=== PATIENT | female | born 1940 | race American Indian/Alaskan Native ===

== ENCOUNTER 2016-07-22 16:51 | Emergency (ER) | payer MEDICARE, MEDICAID ==
[2016-07-22 17:31] VITALS: BP 129/52
--- NOTE | 2016-07-22 17:37 | EDM.PDOC ---
ED HPI GENERAL MEDICAL PROBLEM - General Chief Complaint: Lower Extremity Injury/Pain Stated Complaint: TOE INJURY Time Seen by Provider: 07/22/16 17:30 Source of Information: Reports: Patient History Limitations: Reports: No Limitations - History of Present Illness INITIAL COMMENTS - FREE TEXT/NARRATIVE: 75-year-old female of [place] ancestry presents to the ED for evaluation of painful left toes. Is some suggestion that she dropped an object on her left foot and injured the third fourth and fifth toes on the left side. This occurred on Mother's Day . She was at the poultry dresser today to have her nails trimmed and they cannot touch her left toes do to severe pain. It therefore became concerned whether there might be an occult fracture. By history she has severe peripheral peripheral vascular disease and has had a femoral bypass procedure carried out I believe on both legs about 10 years ago. Onset: Unknown/Unsure (Question is whether she got something in her toes and injured them on Mother's Day July 17.) Duration: Day(s):, Getting Worse Location: Reports: Lower Extremity, Left (Left toes particularly the fifth fourth and third toes on the left foot.) Quality: Reports: Other (Constant aching deep pain.) Severity: Moderate (Offered to severe can't wear a shoe for example.) Improves with: Reports: None Worsens with: Reports: None Context: Denies: Activity, Exercise, Lifting, Sick Contact, Trauma, Other Associated Symptoms: Reports: Malaise, Shortness of Breath (On minimal exertion has known COPD.). 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: Other (see below) Left 3-Middle toe Pain Score (Numeric/FACES): 8 - Related Data Allergies Allergy/AdvReac Type Severity Reaction Status Date / Time No Known Allergies Allergy Verified 07/22/16 17:37 Home Meds: Home Meds Hydrocodone/Acetaminophen [Gwinn 5-325 Tablet] 1 each PO Q6H PRN #24 tablet [Rx] Pentoxifylline [TRENtal] 400 mg PO TIDMEALS #90 tab.er 07/22/16 [Rx] Simvastatin [Zocor] 20 mg PO BEDTIME 07/22/16 [History] Past Medical History Cardiovascular History: Reports: High Cholesterol, Hypertension, PVD (Severe.) Respiratory History: Reports: COPD Musculoskeletal History: Reports: Osteoarthritis, Osteoporosis ( Has never been diagnosed with this disorder.), RA (Question whether she may have rheumatoid arthritis is MCP joints of her hands are notably swollen with ulnar drift of the hand.) - Past Surgical History Cardiovascular Surgical History: Reports: Vascular Surgery (I believe she's had femoral bypass surgery. Bilaterally) Social & Family History - Living Situation & Occupation Living situation: Reports: Single, with Family Occupation: Retired Review of Systems - Review of Systems Review Of Systems: See Below Constitutional: Reports: Weakness Eyes: Reports: No Symptoms Ears: Reports: No Symptoms Nose: Reports: No Symptoms Mouth/Throat: Reports: No Symptoms Respiratory: Reports: Shortness of Breath, Cough (Occasional nonproductive cough ). Denies: Wheezing, Pleuritic Chest Pain (Minimal exertion) Cardiovascular: Denies: Chest Pain, Edema, Irregular Heart Rate GI/Abdominal: Reports: No Symptoms Genitourinary: Reports: Incontinence (Occasional urge incontinence. Urinary frequency.) Musculoskeletal: Reports: Neck Pain, Back Pain, Joint Pain, Joint Swelling ( Hands and feet.) Skin: Reports: No Symptoms Neurological: Reports: No Symptoms Psychiatric: Reports: No Symptoms Trauma Exam - Physical Exam Exam: See Below Exam Limited By: No Limitations General Appearance: Reports: Alert, WD/WN, No Apparent Distress (Very stoic lady who doesn't offer much in the way of history.) Head: Reports: Atraumatic, Normocephalic Eyes: Bilateral Eye: Normal Inspection Throat/Mouth: Reports: Other (Is mildly dry.) Neck: Reports: Non-Tender, Normal Alignment, Normal Inspection, Limited Range of Motion, Paraspinous Muscle Tender (Bilaterally). Denies: Full Range of Motion, Muscle Spasm Respiratory Exam: Reports: Respiratory Distress, Decreased Breath Sounds (Mild tachypnea at rest. Decreased air entry to the lower 40% of lung farrell bilaterally. Occasional expiratory wheeze.) Cardiovascular: Reports: Regular Rate, Rhythm, No Edema, No Gallop, No Murmur, No Rub. Denies: Normal Peripheral Pulses GI/Abdominal: Reports: Normal Bowel Sounds, Soft, Non-Tender, No Organomegaly Extremities: Other (On examination the left foot there is a 3 mm superficial abrasion over the middle phalanx of the third toe. Is no active infection in this area and it appears that has been injured recently as the skin is peeled to the side of the wound. Of note both lower extremities are extremely cool to touch without any pulses palpable below the femorals. Femoral bruits are present bilaterally. She has severe peripheral vascular disease and I think her current problem is rest pain due to poor circulation. Even just touching the toes cause her to have pain and discomfort. They do not appear to be fracture or malalignment.) Skin: Reports: Normal Color, Other (Lower extremity skin is extremely cool to touch) - Alex Coma Score Best Eye Response (Mascot): (4) Open Spontaneously Best Verbal Response (Alex): (5) Oriented Best Motor Response (Mascot): (6) Obeys Commands Mascot Total: 15 Course - Vital Signs Last Recorded V/S: Last Vital Signs Temp 36.4 C 07/22/16 17:30 Pulse 79 07/22/16 17:30 Resp 20 07/22/16 17:30 BP 129/52 L 07/22/16 17:30 Pulse Ox 98 07/22/16 17:30 - Orders/Labs/Meds Orders: Active Orders 24 hr Category Date Time Status Foot Comp Min 3V Lt [CR] Stat Exams 07/22/16 17:36 Taken - Radiology Interpretation Free Text/Narrative:: 75-year-old female brought ancestry attends the ED with complaints of painful left toes of her foot. There is some suggestion that she dropped an object on her foot on Mother's Day July 17 causing injury to the third fourth and fifth toes on left foot. She was at the poultry dresser today for manicurist to have the nails trimmed but could not tolerate him touching these toes due to severe pain. On my assessment she has no circulation to her lower extremities because of severe peripheral vascular disease. History suggests she' s had bilateral femoral bypasses performed about 10 years ago. There is a small skin tear on the dorsal aspect of the third toe on the left side. Plan x-rays of the foot will be obtained. - Re-Assessments/Exams Free Text/Narrative Re-Assessment/Exam: 07/22/16 18:24 x-rays of the toes of the left foot reveal evidence of degenerative changes and severe osteopenia. There were no fractures identified. As a superficial wound on the dorsal aspect of the third toe that was cleansed with topical antibiotic placement and a Band-Aid. Her current problem is severe profound peripheral vascular disease with developing rest pain in the foot on the left side. I will place her on Tegretol 400 mg 3 times daily for one month to see if this improves the circulation and relieve some of her pain. I also wrote a prescription for 24 tablets of Percocet 5/ 325 mg tablets to be taken on a when necessary basis for severe pain relief. Advise followup with personal physician within the next 2-3 weeks. I'm not sure she would benefit from a referral to vascular surgeon due to her elderly age and frail status. She does show some evidence of possible rheumatoid arthritis in her hands with involvement of the medic carpophalangeal joints and some ulnar drift of the hand. There are some erosions appreciated in the bones of her toes just about rheumatoid arthritis. Dr. Espinal of the findings. Departure - Departure Time of Disposition: 18:36 Disposition: Home, Self-Care 01 Condition: fair Clinical Impression: Foot pain, left, Peripheral vascular disease of lower extremity - Discharge Information Prescriptions: Hydrocodone/Acetaminophen [Gwinn 5-325 Tablet] 1 each PO Q6H PRN #24 tablet PRN Reason: pain in feet/toes Pentoxifylline [TRENtal] 400 mg PO TIDMEALS #90 tab.er Instructions: Peripheral Vascular Disease, Inis-cs-Abdi Referrals: PCP,None [Primary Care Provider] - Forms: ED Department Discharge Additional Instructions: Evaluation in the emergency department today in regards to pain 4 left toes. Evaluation reveals severe peripheral vascular disease with very poor circulation to the feet left breast a little worse on the right. There is a small open abrasion to the dorsal aspect of the left third toe which appears to be the result of blunt trauma 5-6 days ago. From this blunt trauma as the toes are hurting so badly. X-rays are been done in reveal bones are very thin but no fractures were identified. There is evidence of a posterior throat changes or arthritis changes in the toe joints. The wound on the dorsal aspect of the left third toe these to be cleansed daily and topical antibiotic such as bacitracin applied and a Band-Aid to prevent infection from occurring. I think a lot of the pain in the foot and toes is secondary to poor circulation. I would suggest trying a trial of Tegretol one tablet every 8 hours for the next month to see if it improves rest pain and presents is use to try to improve circulation to the feet. If it works or improves the situation you may followup with her personal physician to have the medication refilled. I did write a prescription for Gwinn 5-25 mg tablets which are strictly for bad pain. If the pain is interfering with sleep then take a tablet with a little fluid in your stomach. Followup with her personal physician if any other problems occur. - My Orders Last 24 Hours: My Active Orders 07/22/16 17:36 Foot Comp Min 3V Lt [CR] Stat - Assessment/Plan Last 24 Hours: My Active Orders 07/22/16 17:36 Foot Comp Min 3V Lt [CR] Stat
--- NOTE | 2016-07-23 18:02 | CR ---
Left foot: Four views of the left foot were obtained. Comparison: No previous study. Bony structures are osteoporotic. Hyperextension of the toes are noted at the MTP joints causing diminished details. No discrete fracture or other bony abnormality is appreciated. Impression: 1. Difficult to interpret study as described above. Nothing acute is definitely seen. If patient remains symptomatic, repeat study in 10-14 days could then be considered. Diagnostic code #2
== END 2016-07-22 18:56 | disposition home or self-care (01) ==
LOC: JD.ED 16:51 → MERGE 16:51 → JD.ED 18:56
DX: S90.415A Abrasion, left lesser toe(s), initial encounter (principal); I73.9 Peripheral vascular disease, unspecified; M79.672 Pain in left foot; E78.00 Pure hypercholesterolemia, unspecified; I10 Essential (primary) hypertension; J44.9 Chronic obstructive pulmonary disease, unspecified; M19.90 Unspecified osteoarthritis, unspecified site; Z79.899 Other long term (current) drug therapy; W20.8XXA Other cause of strike by thrown, projected or falling object, initial encounter
CPT/HCPCS: 73630-26-LT; 73630-LT; 99283

== ENCOUNTER 2016-08-07 10:15 | Inpatient (IN) | payer MEDICARE, MEDICAID ==
[2016-08-07] MEDS ORDERED: Sodium Chloride 0.9% 10 ML Syringe FLUSH PRN (12:26)
[2016-08-07] MEDS ORDERED: Sodium Chloride 0.9% 500 ML IV ONE (12:26)
[2016-08-07] MEDS ORDERED: Ondansetron 4 MG/2 ML SDV IVPUSH ONE (12:55)
[2016-08-07] MEDS ORDERED: HYDROmorphone 0.5 MG/0.5 ML Syringe IVPUSH ONE (12:58)
--- NOTE | 2016-08-07 13:29 | EDM.PDOC ---
ED HPI GENERAL MEDICAL PROBLEM - General Chief Complaint: Abdominal Pain Stated Complaint: CONSTIPATION Time Seen by Provider: 08/07/16 10:32 Source of Information: Reports: Patient, Family (Son) - History of Present Illness INITIAL COMMENTS - FREE TEXT/NARRATIVE: 75-year-old lady comes in with abdominal pain, constipation and also chronic low back pain. She's been having a lot of difficulty with low back pain with history of multiple compression fractures, severe osteoporosis. She's been recently started on pain medication. With that she's been more constipated than usual. Appetite has been diminished. Patient will nausea but no vomiting. Her son did give her an enema last evening. He states there were some results with that. She continues to abdominal discomfort and cramping today. She also does have a chronic abdominal wall hernia that she's had for at least 4-5 years. No chest pain or difficulty breathing. Abdomen Pain Score (Numeric/FACES): 8 Lower Back Pain Score (Numeric/FACES): 5 - Related Data Allergies Allergy/AdvReac Type Severity Reaction Status Date / Time No Known Allergies Allergy Verified 08/07/16 10:41 Home Meds: Home Meds Hydrocodone/Acetaminophen [Bally 5-325 Tablet] 1 each PO Q6H PRN #24 tablet [Rx] Pentoxifylline [TRENtal] 400 mg PO TIDMEALS #90 tab.er 07/22/16 [Rx] Simvastatin [Zocor] 20 mg PO BEDTIME 07/22/16 [History] Cyclobenzaprine [Flexeril] 5 mg PO TID 08/07/16 [History] Sulfamethoxazole/Trimethoprim [Bactrim 400-80 MG] 2 tab PO BID 08/07/16 [History ] Past Medical History HEENT History: Reports: Impaired Vision Cardiovascular History: Reports: High Cholesterol, Hypertension, PVD Respiratory History: Reports: COPD 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: Musculoskeletal History: Reports: Osteoarthritis, Osteoporosis, RA Neurological History: Reports: Other (See Below) Other Neuro History: stroke - Past Surgical History Cardiovascular Surgical History: Reports: Vascular Surgery Other GI Surgeries/Procedures: hernia repair Musculoskeletal Surgical History: Reports: Hip Replacement Social & Family History - Tobacco Use Smoking Status *Q: Never Smoker Years of Tobacco use: 40 Packs/Tins Daily: 1 Second Hand Smoke Exposure: No - Caffeine Use Caffeine Use: Reports: Coffee - Alcohol Use Days Per Week of Alcohol Use: 7 Number of Drinks Per Day: 5 Total Drinks Per Week: 35 - Recreational Drug Use Recreational Drug Use: No - Living Situation & Occupation Living situation: Reports: Single, with Family Occupation: Retired ED ROS GENERAL - Review of Systems Review Of Systems: See Below Constitutional: Denies: Fever, Chills HEENT: Reports: No Symptoms Cardiovascular: Denies: Chest Pain GI/Abdominal: Reports: Abdominal Pain (Mid abdominal), Constipation, Decreased Appetite, Nausea. Denies: Hematochezia, Melena, Vomiting Musculoskeletal: Reports: Back Pain (Low back, chronic) Skin: Reports: No Symptoms Neurological: Denies: Numbness, Tingling ED EXAM, GI/ABD - Physical Exam Exam: See Below General Appearance: Alert, Mild Distress Throat/Mouth: Normal Inspection, Normal Oropharynx Head: Atraumatic. No: Facial Swelling Neck: Supple Respiratory/Chest: No Respiratory Distress, Lungs Clear, Normal Breath Sounds Cardiovascular: Regular Rate, Rhythm GI/Abdominal: Tenderness (Moderate mid abdominal tenderness, large abdominal wall hernia to the right of the umbilicus), Distention. No: Guarding, Rebound Extremities: Pedal Edema (Mild bilateral), Leg Pain, Other (Signs of vascular insufficiency distal foot ankle and legs). No: Increased Warmth, Redness Neurological: No Motor/Sensory Deficits Skin Exam: Warm, Dry, Normal Color Course - Vital Signs Last Recorded V/S: Last Vital Signs Temp 97.5 F 08/07/16 10:29 Pulse 73 08/07/16 10:29 Resp 12 08/07/16 10:29 BP 125/45 L 08/07/16 10:29 Pulse Ox 94 L 08/07/16 10:29 - Orders/Labs/Meds Orders: Active Orders 24 hr Category Date Time Status Oxygen Therapy Adult [Oxygen Therapy, ED] [RC] Care 08/07/16 13:25 Active ASDIRECTED Peripheral IV Care [RC] . DIRECTED Care 08/07/16 12:26 Active Abdomen 2V AP Flat Upright [CR] Stat Exams 08/07/16 11:04 Taken Sodium Chloride 0.9% [Normal Saline] 1,000 ml Med 08/07/16 14:00 Active IV ASDIRECTED Sodium Chloride 0.9% [Saline Flush] Med 08/07/16 12:26 Active 10 ml FLUSH ASDIRECTED PRN Peripheral IV Insertion Adult [OM.PC] Stat Oth 08/07/16 12:26 Ordered Medication Orders Sodium Chloride (Normal Saline) 1,000 mls @ 75 mls/hr IV ASDIRECTED POOJA Sodium Chloride (Saline Flush) 10 ml FLUSH ASDIRECTED PRN PRN Reason: Keep Vein Open Last Admin: 08/07/16 12:49 Dose: 10 ml Labs: Laboratory Tests 08/07/16 08/07/16 08/07/16 Range/Units 11:28 11:28 13:10 WBC 9.91 (3.98-10.04) K/mm3 RBC 4.52 (3.98-5.22) M/mm3 Hgb 13.8 (11.2-15.7) gm/L Hct 41.5 (34.1-44.9) % MCV 91.8 (79.4-94.8) fl MCH 30.5 (25.6-32.2) pg MCHC 33.3 (32.2-35.5) g/dl RDW Std Deviation 43.5 (36.4-46.3) fL Plt Count 207 (182-369) K/mm3 MPV 10.7 (9.4-12.3) fl Neut % (Auto) 64.2 (34.0-71.1) % Lymph % (Auto) 21.4 (19.3-51.7) % Howard % (Auto) 10.7 (4.7-12.5) % Eos % (Auto) 2.6 (0.7-5.8) Baso % (Auto) 0.6 (0.1-1.2) % Neut # (Auto) 6.36 H (1.56-6.13) K/mm3 Lymph # (Auto) 2.12 (1.18-3.74) K/mm3 Howard # (Auto) 1.06 H (0.24-0.36) K/mm3 Eos # (Auto) 0.26 (0.04-0.36) K/mm3 Baso # (Auto) 0.06 (0.01-0.08) K/mm3 Sodium 132 L (136-145) mEq/L Potassium 5.3 H 5.4 H (3.5-5.1) mEq/L Chloride 99 (98-107) mEq/L Carbon Dioxide 24 (21-32) mEq/L Anion Gap 14.3 (5-15) BUN 40 H (7-18) mg/dL Creatinine 1.8 H (0.55-1.02) mg/dL Est Cr Clr Drug Dosing 20.70 mL/min Estimated GFR (MDRD) 27 (>60) mL/min BUN/Creatinine Ratio 22.2 H (14-18) Glucose 90 (83-115) mg/dL Calcium 8.8 (8.5-10.1) mg/dL Total Bilirubin 0.3 (0.2-1.0) mg/dL AST 29 (15-37) U/L ALT 33 (14-59) U/L Alkaline Phosphatase 102 (46-116) U/L Total Protein 7.9 (6.4-8.2) g/dl Albumin 3.1 L (3.4-5.0) g/dl Globulin 4.8 gm/dL Albumin/Globulin Ratio 0.7 L (1-2) Meds: Medications Generic Name Dose Route Start Last Admin Trade Name Freq PRN Reason Stop Dose Admin Sodium Chloride 1,000 mls @ 75 mls/hr 08/07/16 14:00 Normal Saline IV ASDIRECTED POOJA Sodium Chloride 10 ml 08/07/16 12:26 08/07/16 12:49 Saline Flush FLUSH 10 ml ASDIRECTED PRN Administration Keep Vein Open Discontinued Medications Generic Name Dose Route Start Last Admin Trade Name Freq PRN Reason Stop Dose Admin Hydromorphone HCl 0.5 mg 08/07/16 12:58 08/07/16 13:16 Dilaudid IVPUSH 08/07/16 12:59 0.5 mg ONETIME ONE Administration Sodium Chloride 500 mls @ 999 mls/hr 08/07/16 12:26 08/07/16 12:47 Normal Saline IV 08/07/16 12:56 999 mls/hr .BOLUS ONE Administration Ondansetron HCl 4 mg 08/07/16 12:55 08/07/16 13:08 Zofran IVPUSH 08/07/16 12:56 4 mg ONETIME ONE Administration - Re-Assessments/Exams Free Text/Narrative Re-Assessment/Exam: 08/07/16 13:oo. Potassium came back elevated at 5.3, I wonder if this may be hemolyzed specimen, BUN and creatinine were very mildly elevated but not to where you would expect elevated potassium due to renal insufficiency. White blood count normal anion gap very slightly elevated. We'll give some IV fluid, repeat potassium. On rectal exam the rectum was fairly empty so I do not believe that enema will be helpful at this time. Strays of the abdomen showed increased stool and gas but no major dilatation or air-fluid levels at this time 08/07/16 14:31. Repeat potassium came back even more elevated 5.4. We did give half milligram Dilaudid for her back pain and that helped initially but now she once again is having severe pain with any type of motion. She is not a candidate to go home at this time. BUN is 40, creatinine 1.8. Given some IV fluid, admit for further hydration further treatment and evaluation of multiple medical problems. Departure - Departure Time of Disposition: 14:32 Disposition: Admitted As Inpatient 64 Condition: serious Clinical Impression: Hyperkalemia, Compression fracture, Renal insufficiency, Dehydration Abdominal pain Qualifiers: Abdominal location: generalized Qualified Code(s): R10.84 - Generalized abdominal pain - Discharge Information ED Communication - Discussed Case With (1) Discussed Case With (1): Admitting Provider (Dr Espinoza, decision to admit at about 1430.) - My Orders Last 24 Hours: My Active Orders 08/07/16 11:04 Abdomen 2V AP Flat Upright [CR] Stat 08/07/16 12:26 Peripheral IV Care [RC] . DIRECTED Sodium Chloride 0.9% [Saline Flush] 10 ml FLUSH ASDIRECTED PRN Peripheral IV Insertion Adult [OM.PC] Stat 08/07/16 13:25 Oxygen Therapy Adult [Oxygen Therapy, ED] [RC] ASDIRECTED 08/07/16 14:00 Sodium Chloride 0.9% [Normal Saline] 1,000 ml IV ASDIRECTED - Assessment/Plan Last 24 Hours: My Active Orders 08/07/16 11:04 Abdomen 2V AP Flat Upright [CR] Stat 08/07/16 12:26 Peripheral IV Care [RC] . DIRECTED Sodium Chloride 0.9% [Saline Flush] 10 ml FLUSH ASDIRECTED PRN Peripheral IV Insertion Adult [OM.PC] Stat 08/07/16 13:25 Oxygen Therapy Adult [Oxygen Therapy, ED] [RC] ASDIRECTED 08/07/16 14:00 Sodium Chloride 0.9% [Normal Saline] 1,000 ml IV ASDIRECTED
[2016-08-07] MEDS ORDERED: Sodium Chloride 0.9% 1,000 ML IV SCH (14:00)
[2016-08-07] MEDS ORDERED: Morphine 2 MG/ML Syringe IVPUSH PRN (16:08)
--- NOTE | 2016-08-07 16:18 | PCM.HP ---
H&P History of Present Illness - General Date of Service: 08/07/16 Admit Problem/Dx: Admission Diagnosis/Problem Admission Diagnosis/Problem Hyperkalemia Source of Information: Provider History Limitations: Reports: No Limitations - History of Present Illness Initial Comments - Free Text/Narative: 75 year old female with multiple compression fractures developed decrease appetite and nausea after starting Maize. She was scheduled for MRI and an ortho consult for 08/08/16. Additionally she has had abdominal discomfort. She will be admitted with ARF and hyperkalemia to [facility] telemetry. Onset of Symptoms: Reports: Gradual Duration of Symptoms: Reports: Week(s):, Chronic, Getting Worse Location: Reports: Back Quality: Reports: Pressure, Stabbing, Throbbing Improves with: Reports: Medication Worsens with: Reports: Movement Associated Symptoms: Reports: Weakness Abdomen Pain Score (Numeric/FACES): 8 Lower Back Pain Score (Numeric/FACES): 5 - Related Data Allergies/Adverse Reactions: Allergies Allergy/AdvReac Type Severity Reaction Status Date / Time No Known Allergies Allergy Verified 08/07/16 10:41 Home Medications: Home Meds Hydrocodone/Acetaminophen [Maize 5-325 Tablet] 1 each PO Q6H PRN #24 tablet [Rx] Pentoxifylline [TRENtal] 400 mg PO TIDMEALS #90 tab.er 07/22/16 [Rx] Simvastatin [Zocor] 20 mg PO BEDTIME 07/22/16 [History] Cyclobenzaprine [Flexeril] 5 mg PO TID 08/07/16 [History] Sulfamethoxazole/Trimethoprim [Bactrim 400-80 MG] 2 tab PO BID 08/07/16 [History ] Past Medical History HEENT History: Reports: Impaired Vision Cardiovascular History: Reports: High Cholesterol, Hypertension, PVD Respiratory History: Reports: COPD [employer] History: Reports: Musculoskeletal History: Reports: Osteoarthritis, Osteoporosis, RA Neurological History: Reports: Other (See Below) Other Neuro History: stroke - Past Surgical History Cardiovascular Surgical History: Reports: Vascular Surgery Other GI Surgeries/Procedures: hernia repair Musculoskeletal Surgical History: Reports: Hip Replacement Social & Family History - Tobacco Use Smoking Status *Q: Never Smoker Years of Tobacco use: 40 Packs/Tins Daily: 1 Second Hand Smoke Exposure: No - Caffeine Use Caffeine Use: Reports: Coffee - Alcohol Use Days Per Week of Alcohol Use: 7 Number of Drinks Per Day: 5 Total Drinks Per Week: 35 - Recreational Drug Use Recreational Drug Use: No - Living Situation & Occupation Living situation: Reports: Single, with Family Occupation: Retired H&P Review of Systems - Review of Systems: Review Of Systems: See Below General: Reports: Weakness HEENT: Reports: No Symptoms Pulmonary: Reports: No Symptoms Cardiovascular: Reports: No Symptoms Gastrointestinal: Reports: Abdominal Pain, Constipation, Decreased Appetite, Nausea Genitourinary: Reports: No Symptoms Musculoskeletal: Reports: No Symptoms Skin: Reports: No Symptoms Psychiatric: Reports: No Symptoms Neurological: Reports: No Symptoms Hematologic/Lymphatic: Reports: No Symptoms Immunologic: Reports: No Symptoms Exam - Exam Exam: See Below - Vital Signs Vital Signs: Last Vital Signs Temp 36.4 C 08/07/16 10:29 Pulse 73 08/07/16 10:29 Resp 12 08/07/16 10:29 BP 125/45 L 08/07/16 10:29 Pulse Ox 94 L 08/07/16 10:29 Weight: 140 kg - Exam Quality Assessment: DVT Prophylaxis General: Alert, Oriented, Cooperative, Mild Distress HEENT: EACs Clear, EOMI, Nares Patent, Normal Nasal Septum, Posterior Pharynx Clear, Pupils Equal, Pupils Reactive, PERRLA Neck: Supple, Trachea Midline Lungs: Normal Respiratory Effort Cardiovascular: Regular Rate, Regular Rhythm Abdomen: Normal Bowel Sounds, Soft (Female) Exam: Deferred Rectal (Female) Exam: Deferred Back Exam: Normal Inspection, Decreased Range of Motion, Paraspinal Tenderness Extremities: Normal Inspection Skin: Warm Neurological: Cranial Nerves Intact, Normal Speech Neuro Extensive - Mental Status: Alert, Oriented x3, Normal Mood/Affect, Normal Cognition, Memory Intact Neuro Extensive - Motor, Sensory, Reflexes: CN II-XII Intact Psychiatric: Alert, Normal Affect, Normal Mood - Patient Data Lab Results last 24 hrs: Laboratory Results - last 24 hr 08/07/16 Range/Units 14:58 POC Glucose 97 (83-110) mg/dL Result Diagrams: 08/07/16 11:28 08/07/16 13:10 *Q Meaningful Use (ADM) - VTE *Q VTE Criteria *Q: - Stroke *Q Stroke Criteria *Q: - AMI *Q AMI Criteria *Q: - Problem List (1) Abdominal pain SNOMED Code(s): 47163056 ICD Code: R10.9 - UNSPECIFIED ABDOMINAL PAIN Status: Acute Current Visit : Yes Qualifiers: Abdominal location: generalized Qualified Code(s): R10.84 - Generalized abdominal pain (2) Compression fracture SNOMED Code(s): 369793916 ICD Code: VIZ8881 - Status: Acute Current Visit: Yes (3) Dehydration SNOMED Code(s): 28274344 ICD Code: E86.0 - DEHYDRATION Status: Acute Current Visit: Yes (4) Hyperkalemia SNOMED Code(s): 72136220 ICD Code: E87.5 - HYPERKALEMIA Status: Acute Current Visit: Yes (5) Renal insufficiency SNOMED Code(s): 489633357, 521812574 ICD Code: N28.9 - DISORDER OF KIDNEY AND URETER, UNSPECIFIED Status: Acute Current Visit: Yes Problem List Initiated/Reviewed/Updated: Yes Orders Last 24hrs: Active Orders 24 hr Category Date Time Status Admission Status [Patient Status] [ADT] Routine ADT 08/07/16 15:39 Active Antiembolic Devices [RC] PER UNIT ROUTINE Care 08/07/16 15:38 Active Bedrest [RC] ASDIRECTED Care 08/07/16 15:37 Active Cooling Warming Measures [RC] ASDIRECTED Care 08/07/16 15:38 Active Neuro Check [RC] BID Care 08/07/16 15:32 Active Vital Signs [RC] PER UNIT ROUTINE Care 08/07/16 15:31 Active Consult to Educational Director [CONS] Routine Cons 08/08/16 08:00 Active OT Evaluation and Treatment [CONS] Routine Cons 08/08/16 09:00 Active PT Evaluation and Treatment [CONS] Routine Cons 08/08/16 09:00 Active Clear Liquid Diet [DIET] Diet 08/07/16 Dinner Active BMP [BASIC METABOLIC PANEL,BMP] [CHEM] DAILY Lab 08/08/16 05:00 Ordered BMP [BASIC METABOLIC PANEL,BMP] [CHEM] DAILY Lab 08/09/16 05:00 Ordered BMP [BASIC METABOLIC PANEL,BMP] [CHEM] DAILY Lab 08/10/16 05:00 Ordered BMP [BASIC METABOLIC PANEL,BMP] [CHEM] DAILY Lab 08/11/16 05:00 Ordered CBC W/O DIFF,HEMOGRAM [HEME] MOTH@0700 Lab 08/08/16 07:00 Ordered CBC W/O DIFF,HEMOGRAM [HEME] MOTH@0700 Lab 08/11/16 07:00 Ordered CBC W/O DIFF,HEMOGRAM [HEME] MOTH@0700 Lab 08/15/16 07:00 Ordered CBC W/O DIFF,HEMOGRAM [HEME] MOTH@0700 Lab 08/18/16 07:00 Ordered CBC W/O DIFF,HEMOGRAM [HEME] MOTH@0700 Lab 08/22/16 07:00 Ordered CBC W/O DIFF,HEMOGRAM [HEME] MOTH@0700 Lab 08/25/16 07:00 Ordered CBC WITH AUTO DIFF [HEME] DAILY Lab 08/08/16 05:00 Ordered CBC WITH AUTO DIFF [HEME] DAILY Lab 08/09/16 05:00 Ordered CBC WITH AUTO DIFF [HEME] DAILY Lab 08/10/16 05:00 Ordered CBC WITH AUTO DIFF [HEME] DAILY Lab 08/11/16 05:00 Ordered CRP [C-REACTIVE PROTEIN] [CHEM] Routine Lab 08/08/16 05:00 Ordered MAGNESIUM [CHEM] DAILY Lab 08/08/16 05:00 Ordered MAGNESIUM [CHEM] DAILY Lab 08/09/16 05:00 Ordered MAGNESIUM [CHEM] DAILY Lab 08/10/16 05:00 Ordered MAGNESIUM [CHEM] DAILY Lab 08/11/16 05:00 Ordered Acetaminophen/HYDROcodone [Maize 325-5 MG] Med 08/07/16 15:32 Active 1 tab PO Q6H PRN Cyclobenzaprine [Flexeril] Med 08/07/16 21:00 Active 5 mg PO TID Diazepam [Valium] Med 08/07/16 21:00 Ordered 1 mg PO BID Enoxaparin [Lovenox] Med 08/08/16 09:00 Active 30 mg SUBCUT DAILY Morphine Med 08/07/16 16:08 Ordered 1 mg IVPUSH Q4H PRN Pentoxifylline [TRENtal] Med 08/07/16 17:00 Active 400 mg PO TIDMEALS Remove Patch Med 08/07/16 16:00 Active 1 ea TRDERM Q72H Simvastatin [Zocor] Med 08/07/16 21:00 Active 20 mg PO BEDTIME Sodium Polystyrene Sulfonate [Kayexalate] Med 08/07/16 15:45 Active 45 gm PO Q8H fentaNYL [Duragesic] Med 08/07/16 16:00 Active 12 mcg TRDERM Q72H Heat Therapy [OM.PC] Routine Oth 08/07/16 15:38 Ordered JESSICA Hose [Antiembolic Hose] [OM.PC] Routine Oth 08/07/16 15:38 Ordered Code Status [Resuscitation Status] Routine Resus Stat 08/07/16 15:31 Ordered Medication Orders Hydrocodone Bitart/Acetaminophen (Maize 325-5 Mg) 1 tab PO Q6H PRN PRN Reason: pain in feet/toes Cyclobenzaprine HCl (Flexeril) 5 mg PO TID POOJA Diazepam (Valium) 1 mg PO BID POOJA Enoxaparin Sodium (Lovenox) 30 mg SUBCUT DAILY POOJA Fentanyl (Duragesic) 12 mcg TRDERM Q72H POOJA Sodium Chloride (Normal Saline) 1,000 mls @ 75 mls/hr IV ASDIRECTED [facility] Miscellaneous Information (Remove Patch) 1 ea TRDERM Q72H POOJA Morphine Sulfate (Morphine) 1 mg IVPUSH Q4H PRN PRN Reason: Pain Pentoxifylline (Trental) 400 mg PO TIDMEALS POOJA Simvastatin (Zocor) 20 mg PO BEDTIME POOJA Sodium Chloride (Saline Flush) 10 ml FLUSH ASDIRECTED PRN PRN Reason: Keep Vein Open Last Admin: 08/07/16 12:49 Dose: 10 ml Sodium Polystyrene Sulfonate (Kayexalate) 45 gm PO Q8H [facility] Assessment/Plan Comment:: Impression: ARF Prerenal/dehydration Hyperkalemia Multiple compression fractures on narcotics with subsequent constipation Chronic PVD Ventral Hernia COPD HTN Hyperlipdemia Plan: IVF Kayexelate Q8 H; XS K protocol Home meds Ortho consult re: compression Fx Valium/Fentanyl Hold Trental, sub ASA Antiemetic Hold Flexeril SW/PT/OT DVT/GI prophylaxis
[2016-08-07] MEDS ORDERED: Ondansetron 4 MG/2 ML SDV IVPUSH PRN (16:21)
[2016-08-07] MEDS: Sodium Polystyrene Sulfonate 15 GM/60 ML Susp 60 ML Bot PO SCH ×2 (16:42→22:52)
[2016-08-07] MEDS: fentaNYL 12 MCG/HR Transdermal Patch TRDERM SCH (16:47)
[2016-08-07] MEDS ORDERED: Pentoxifylline 400 MG Tab.ER PO SCH (17:00)
[2016-08-07] MEDS: Lactated Ringers 1,000 ML IV SCH (17:21)
[2016-08-07] MEDS: REMOVE FENTANYL TRDERM SCH (17:44)
[2016-08-07] MEDS ORDERED: Pneumococcal 13-Valent Conjugate Vaccine 0.5 ML Syringe IM ONE (18:26)
[2016-08-07] MEDS ORDERED: Cyclobenzaprine 10 MG Tab PO SCH (21:00)
[2016-08-07] MEDS ORDERED: Diazepam 2 MG Tab PO SCH (21:00)
[2016-08-07] MEDS: Simvastatin 20 MG Tab PO SCH (21:26)
[2016-08-07] MEDS: Diazepam 2 MG Tab PO SCH (21:27)
[2016-08-07] MEDS: Acetaminophen/HYDROcodone 325-5 MG Tab PO PRN (22:51)
[2016-08-08] MEDS: Pantoprazole 40 MG Tab.CR PO SCH ×2 (05:22→15:40)
[2016-08-08] MEDS: Diazepam 2 MG Tab PO SCH ×2 (08:12→22:44)
[2016-08-08] MEDS: Enoxaparin 30 MG/0.3 ML Syringe SUBCUT SCH (08:12)
[2016-08-08] MEDS: Sodium Polystyrene Sulfonate 15 GM/60 ML Susp 60 ML Bot PO SCH ×4 (08:12→22:45)
[2016-08-08] MEDS: Acetaminophen/HYDROcodone 325-5 MG Tab PO PRN ×2 (08:13→16:33)
[2016-08-08] MEDS: Aspirin 325 MG Tab.EC PO SCH (08:13)
[2016-08-08] MEDS: Lactated Ringers 1,000 ML IV SCH ×2 (08:15→23:32)
--- NOTE | 2016-08-08 09:06 | CR ---
Abdomen: Supine and upright views of the abdomen were obtained. Prominent bowel gas noted within the left upper abdomen. Gas appears to be mostly small bowel although some colonic gas is also seen. No free air is seen. Bilateral shoulder prosthesis are seen. Scoliosis noted within the spine. Several mild compression deformities are seen. Impression: 1. Slightly prominent small bowel gas and lesser increased colonic gas. Difficult to exclude a closed-loop obstruction causing the gas within the left upper abdomen. Findings may also represent focal ileus. 2. Other incidental findings. Diagnostic code #3
--- NOTE | 2016-08-08 09:37 | CR ---
Abdomen: Supine and upright views of the abdomen were obtained. Comparison: Previous abdominal x-ray of 08/07/16. Decreasing small bowel gas within the left upper abdomen is seen. There is now mildly prominent colonic gas being seen within the splenic flexure. Bowel gas pattern is otherwise unremarkable. Bilateral hip prosthesis are seen. Bony structures are osteopenic. Several mild compression deformities are seen which are felt to be old. No free air is seen. Impression: 1. Slightly dilated loop of colon within the splenic flexure. This remains nonspecific but continued follow-up recommended to make sure this does not represent an early volvulus or other colonic obstruction. 2. Other incidental findings as noted above. Diagnostic code #3
[2016-08-08] MEDS ORDERED: Bisacodyl 10 MG Supp RECTAL ONE (09:39)
--- NOTE | 2016-08-08 10:35 | PCM.PN ---
<Shannon Kimble M - Last Filed: 08/08/16 10:51> - General Info Date of Service: 08/08/16 Admission Dx/Problem (Free Text): Admission Diagnosis/Problem Admission Diagnosis/Problem Hyperkalemia Patient is seen this morning resting comfortably in chair. States back pain is improved but abdomen is slightly tender this morning. She had two doses of kayexalate last evening, no BM yet. K+ is down this morning. She is tolerating clear liquid diet; no n/v. Family member is present in room this morning. Functional Status: Reports: tolerating diet, ambulating, urinating - Review of Systems General: Denies: Fever HEENT: Reports: no symptoms Pulmonary: Denies: shortness of breath, cough Cardiovascular: Denies: Chest Pain, Palpitations Gastrointestinal: Reports: Abdominal pain (mid central abd pain), Constipation. Denies: Decreased appetite, Diarrhea, Nausea, Vomiting Genitourinary: Reports: no symptoms Musculoskeletal: Reports: back pain (improved today) Psychiatric: Reports: no symptoms - Patient Data Vitals - most recent: Last Vital Signs Temp 98.4 F 08/08/16 08:05 Pulse 69 08/08/16 08:05 Resp 20 08/08/16 08:05 BP 117/49 L 08/08/16 08:05 Pulse Ox 91 L 08/08/16 09:46 Weight - most recent: 63.095 kg I&O - last 24 hours: Intake & Output 08/07/16 08/08/16 08/08/16 22:59 06:59 14:59 Intake Total 240 350 Output Total 350 600 Balance -110 -250 Lab Results last 24 hrs: Laboratory Results - last 24 hr 08/07/16 08/08/16 08/08/16 Range/Units 14:58 07:54 07:54 WBC 7.51 (3.98-10.04) K/mm3 RBC 4.31 (3.98-5.22) M/mm3 Hgb 13.2 (11.2-15.7) gm/L Hct 40.3 (34.1-44.9) % MCV 93.5 (79.4-94.8) fl MCH 30.6 (25.6-32.2) pg MCHC 32.8 (32.2-35.5) g/dl RDW Std Deviation 44.4 (36.4-46.3) fL Plt Count 196 (182-369) K/mm3 MPV 10.9 (9.4-12.3) fl Neut % (Auto) 66.6 (34.0-71.1) % Lymph % (Auto) 19.7 (19.3-51.7) % [place] % (Auto) 11.5 (4.7-12.5) % Eos % (Auto) 1.3 (0.7-5.8) Baso % (Auto) 0.5 (0.1-1.2) % Neut # (Auto) 5.00 (1.56-6.13) K/mm3 Lymph # (Auto) 1.48 (1.18-3.74) K/mm3 [place] # (Auto) 0.86 H (0.24-0.36) K/mm3 Eos # (Auto) 0.10 (0.04-0.36) K/mm3 Baso # (Auto) 0.04 (0.01-0.08) K/mm3 Sodium 139 (136-145) mEq/L Potassium 3.9 (3.5-5.1) mEq/L Chloride 106 (98-107) mEq/L Carbon Dioxide 24 (21-32) mEq/L Anion Gap 12.9 (5-15) BUN 21 H (7-18) mg/dL Creatinine 1.3 H (0.55-1.02) mg/dL Est Cr Clr Drug Dosing 28.66 mL/min Estimated GFR (MDRD) 40 (>60) mL/min BUN/Creatinine Ratio 16.2 (14-18) Glucose 96 (83-115) mg/dL POC Glucose 97 (83-110) mg/dL Calcium 8.0 L (8.5-10.1) mg/dL Magnesium 2.1 (1.8-2.4) mg/dl C-Reactive Protein 6.7 H* (<1.0) mg/dL Med Orders - Current: Current Medications Hydrocodone Bitart/Acetaminophen (Flatgap 325-5 Mg) 1 tab PO Q6H PRN PRN Reason: pain in feet/toes Last Admin: 08/08/16 08:13 Dose: 1 tab Aspirin (Ecotrin) 325 mg PO DAILY [facility] Last Admin: 08/08/16 08:13 Dose: 325 mg Diazepam (Valium) 1 mg PO BID [facility] Last Admin: 08/08/16 08:12 Dose: 1 mg Enoxaparin Sodium (Lovenox) 30 mg SUBCUT DAILY [facility] Last Admin: 08/08/16 08:12 Dose: 30 mg Fentanyl (Duragesic) 12 mcg TRDERM Q72H [facility] Last Admin: 08/07/16 16:47 Dose: 12 mcg Lactated Ringer's (Ringers, Lactated) 1,000 mls @ 75 mls/hr IV ASDIRECTED [facility] Last Admin: 08/08/16 08:15 Dose: 75 mls/hr Metoclopramide HCl (Reglan) 10 mg IVPUSH TID [facility] Miscellaneous Information (Remove Patch) 1 ea TRDERM Q72H [facility] Last Admin: 08/07/16 17:44 Dose: Not Given Morphine Sulfate (Morphine) 1 mg IVPUSH Q4H PRN PRN Reason: Pain Last Admin: 08/08/16 05:19 Dose: 1 mg Ondansetron HCl (Zofran) 4 mg IVPUSH Q8H PRN PRN Reason: Nausea/Vomiting Pantoprazole Sodium (Protonix) 40 mg PO BIDAC [facility] Last Admin: 08/08/16 05:22 Dose: 40 mg Senna/Docusate Sodium (Senna Plus) 1 tab PO BID [facility] Last Admin: 08/08/16 08:22 Dose: 1 tab Simvastatin (Zocor) 20 mg PO BEDTIME [facility] Last Admin: 08/07/16 21:26 Dose: 20 mg Sodium Chloride (Saline Flush) 10 ml FLUSH ASDIRECTED PRN PRN Reason: Keep Vein Open Last Admin: 08/07/16 12:49 Dose: 10 ml Sodium Polystyrene Sulfonate (Kayexalate) 45 gm PO Q8H [facility] Last Admin: 08/08/16 08:12 Dose: 45 gm Discontinued Medications Bisacodyl (Dulcolax) 10 mg RECTAL ONETIME ONE Stop: 08/08/16 09:40 Last Admin: 08/08/16 10:22 Dose: 10 mg Cyclobenzaprine HCl (Flexeril) 5 mg PO TID [facility] Diazepam (Valium) 2 mg PO BID [facility] Hydromorphone HCl (Dilaudid) 0.5 mg IVPUSH ONETIME ONE Stop: 08/07/16 12:59 Last Admin: 08/07/16 13:16 Dose: 0.5 mg Sodium Chloride (Normal Saline) 500 mls @ 999 mls/hr IV .BOLUS ONE Stop: 08/07/16 12:56 Last Admin: 08/07/16 12:47 Dose: 999 mls/hr Sodium Chloride (Normal Saline) 1,000 mls @ 75 mls/hr IV ASDIRECTED [facility] Ondansetron HCl (Zofran) 4 mg IVPUSH ONETIME ONE Stop: 08/07/16 12:56 Last Admin: 08/07/16 13:08 Dose: 4 mg Pentoxifylline (Trental) 400 mg PO TIDMEALS [facility] Pneumococcal 13-Valent Conj Vacc (Prevnar 13) 0.5 ml IM .ONCE ONE Stop: 08/07/16 18:27 - Exam Quality Assessment: DVT prophylaxis General: alert, oriented, cooperative, no acute distress HEENT: Pupils equal, Pupils reactive, EOMI, Mucous membr. moist/pink Neck: supple Lungs: Clear to auscultation, Normal respiratory effort, Decreased breath sounds (bases bilat) Cardiovascular: Regular Rate, Regular Rhythm Abdomen: bowel sounds present (hypoactive), soft (ventral hernia present, mild tenderness to proximal aspect of hernia with palp, reducable without pain). No : rebound, guarding, distension (Female) Exam: Deferred Back Exam: Normal Inspection. No: Vertebral Tenderness (no point tenderness with palpation of vertebra) Extremities: edema (rt LE with 1+ edema to ankle; lt leg with jessica hose on) Peripheral Pulses: 1+: Dorsalis Pedis (L), Dorsalis Pedis (R) Neurological: no new focal deficit Psy/Mental Status: alert - Problem List & Annotations (1) Constipation SNOMED Code(s): 52416183 Code(s): K59.00 - CONSTIPATION, UNSPECIFIED Status: Acute Priority: High Current Visit: Yes Qualifiers: Constipation type: drug induced constipation Qualified Code(s): K59.03 - Drug induced constipation Annotation/Comment:: recent narcotic use (2) Abdominal pain SNOMED Code(s): 97652916 Code(s): R10.9 - UNSPECIFIED ABDOMINAL PAIN Status: Acute Priority: High Current Visit: Yes Qualifiers: Abdominal location: generalized Qualified Code(s): R10.84 - Generalized abdominal pain (3) Compression fracture SNOMED Code(s): 082791663 Code(s): YUH9850 - Status: Acute Priority: High Current Visit: Yes (4) Hyperkalemia SNOMED Code(s): 14698334 Code(s): E87.5 - HYPERKALEMIA Status: Resolved Priority: High Current Visit: Yes (5) Renal insufficiency SNOMED Code(s): 342188252, 928648573 Code(s): N28.9 - DISORDER OF KIDNEY AND URETER, UNSPECIFIED Status: Chronic Priority: Medium Current Visit: Yes - Problem List Review Problem List Initiated/Reviewed/Updated: Yes - My Orders Last 24 Hours: My Active Orders 08/08/16 09:00 Docusate Sodium/Sennosides [Senna Plus] 1 tab PO BID 08/08/16 09:41 Consult to Physician [CONS] Routine 08/08/16 09:43 Notify Provider Consults [RC] ASDIRECTED 08/08/16 15:00 Metoclopramide [Reglan] 10 mg IVPUSH TID - Assessment Assessment:: I/P: Hyperkalemia on admission--resolved with kayexalate -Cont to follow labs Abdominal pain -- likely d/t acute opioid induced constipation -Recent narcotic use for back pain, compression fracture -Ventral hernia present -Abd xray on admission and today with ? early ileus; will cont to follow -Reglan IVP TID, Senna, Suppository---bowel regimen, if not BM by afternoon will order mag citrate -If no BM today, repeat xray tomorrow, possible NG tube tomorrow -Cont with clear liquid diet for now Compression fracture lumbar spine -Patient was to see Dr. Herrera today in clinic for consult- will consult for opinion. Pain is improved with fentanyl patch. -MRI to be scheduled for today for further eval Other: Cont home meds DVT/GI prophylax PT/OT CM/SW for assist with DC planning Patient is Full Code status - Plan Plan:: Impression: ARF Prerenal/dehydration Hyperkalemia Multiple compression fractures on narcotics with subsequent constipation Chronic PVD Ventral Hernia COPD HTN Hyperlipdemia Plan: IVF Kayexelate Q8 H; XS K protocol Home meds Ortho consult re: compression Fx Valium/Fentanyl Hold Trental, sub ASA Antiemetic Hold Flexeril SW/PT/OT DVT/GI prophylaxis <Caryl Espinoza - Last Filed: 08/08/16 15:13> - Patient Data Vitals - most recent: Last Vital Signs Temp 36.9 C 08/08/16 08:05 Pulse 69 08/08/16 08:05 Resp 20 08/08/16 08:05 BP 117/49 L 08/08/16 08:05 Pulse Ox 91 L 08/08/16 09:46 I&O - last 24 hours: Intake & Output 08/08/16 08/08/16 08/08/16 06:59 14:59 22:59 Intake Total 350 690 Output Total 600 Balance -250 690 Lab Results last 24 hrs: Laboratory Results - last 24 hr 08/08/16 08/08/16 Range/Units 07:54 07:54 WBC 7.51 (3.98-10.04) K/mm3 RBC 4.31 (3.98-5.22) M/mm3 Hgb 13.2 (11.2-15.7) gm/L Hct 40.3 (34.1-44.9) % MCV 93.5 (79.4-94.8) fl MCH 30.6 (25.6-32.2) pg MCHC 32.8 (32.2-35.5) g/dl RDW Std Deviation 44.4 (36.4-46.3) fL Plt Count 196 (182-369) K/mm3 MPV 10.9 (9.4-12.3) fl Neut % (Auto) 66.6 (34.0-71.1) % Lymph % (Auto) 19.7 (19.3-51.7) % [place] % (Auto) 11.5 (4.7-12.5) % Eos % (Auto) 1.3 (0.7-5.8) Baso % (Auto) 0.5 (0.1-1.2) % Neut # (Auto) 5.00 (1.56-6.13) K/mm3 Lymph # (Auto) 1.48 (1.18-3.74) K/mm3 [place] # (Auto) 0.86 H (0.24-0.36) K/mm3 Eos # (Auto) 0.10 (0.04-0.36) K/mm3 Baso # (Auto) 0.04 (0.01-0.08) K/mm3 Sodium 139 (136-145) mEq/L Potassium 3.9 (3.5-5.1) mEq/L Chloride 106 (98-107) mEq/L Carbon Dioxide 24 (21-32) mEq/L Anion Gap 12.9 (5-15) BUN 21 H (7-18) mg/dL Creatinine 1.3 H (0.55-1.02) mg/dL Est Cr Clr Drug Dosing 28.66 mL/min Estimated GFR (MDRD) 40 (>60) mL/min BUN/Creatinine Ratio 16.2 (14-18) Glucose 96 (83-115) mg/dL Calcium 8.0 L (8.5-10.1) mg/dL Magnesium 2.1 (1.8-2.4) mg/dl C-Reactive Protein 6.7 H* (<1.0) mg/dL Med Orders - Current: Current Medications Hydrocodone Bitart/Acetaminophen (Flatgap 325-5 Mg) 1 tab PO Q6H PRN PRN Reason: pain in feet/toes Last Admin: 08/08/16 08:13 Dose: 1 tab Aspirin (Ecotrin) 325 mg PO DAILY [facility] Last Admin: 08/08/16 08:13 Dose: 325 mg Diazepam (Valium) 1 mg PO BID [facility] Last Admin: 08/08/16 08:12 Dose: 1 mg Enoxaparin Sodium (Lovenox) 30 mg SUBCUT DAILY [facility] Last Admin: 08/08/16 08:12 Dose: 30 mg Fentanyl (Duragesic) 12 mcg TRDERM Q72H [facility] Last Admin: 08/07/16 16:47 Dose: 12 mcg Lactated Ringer's (Ringers, Lactated) 1,000 mls @ 75 mls/hr IV ASDIRECTED [facility] Last Admin: 08/08/16 08:15 Dose: 75 mls/hr Metoclopramide HCl (Reglan) 10 mg IVPUSH TID [facility] Miscellaneous Information (Remove Patch) 1 ea TRDERM Q72H [facility] Last Admin: 08/07/16 17:44 Dose: Not Given Miscellaneous Information (Remove Patch) 0 ea TRDERM DAILY [facility] Nicotine (Habitrol) 14 mg TRDERM DAILY [facility] Last Admin: 08/08/16 13:42 Dose: Not Given Ondansetron HCl (Zofran) 4 mg IVPUSH Q8H PRN PRN Reason: Nausea/Vomiting Pantoprazole Sodium (Protonix) 40 mg PO BIDAC [facility] Last Admin: 08/08/16 05:22 Dose: 40 mg Senna/Docusate Sodium (Senna Plus) 1 tab PO BID [facility] Last Admin: 08/08/16 08:22 Dose: 1 tab Simvastatin (Zocor) 20 mg PO BEDTIME [facility] Last Admin: 08/07/16 21:26 Dose: 20 mg Sodium Chloride (Saline Flush) 10 ml FLUSH ASDIRECTED PRN PRN Reason: Keep Vein Open Last Admin: 08/07/16 12:49 Dose: 10 ml Sodium Polystyrene Sulfonate (Kayexalate) 45 gm PO Q8H [facility] Last Admin: 08/08/16 10:42 Dose: 45 gm Discontinued Medications Bisacodyl (Dulcolax) 10 mg RECTAL ONETIME ONE Stop: 08/08/16 09:40 Last Admin: 08/08/16 10:22 Dose: 10 mg Cyclobenzaprine HCl (Flexeril) 5 mg PO TID [facility] Diazepam (Valium) 2 mg PO BID [facility] Hydromorphone HCl (Dilaudid) 0.5 mg IVPUSH ONETIME ONE Stop: 08/07/16 12:59 Last Admin: 08/07/16 13:16 Dose: 0.5 mg Sodium Chloride (Normal Saline) 500 mls @ 999 mls/hr IV .BOLUS ONE Stop: 08/07/16 12:56 Last Admin: 08/07/16 12:47 Dose: 999 mls/hr Sodium Chloride (Normal Saline) 1,000 mls @ 75 mls/hr IV ASDIRECTED [facility] Morphine Sulfate (Morphine) 1 mg IVPUSH Q4H PRN PRN Reason: Pain Last Admin: 08/08/16 05:19 Dose: 1 mg Ondansetron HCl (Zofran) 4 mg IVPUSH ONETIME ONE Stop: 08/07/16 12:56 Last Admin: 08/07/16 13:08 Dose: 4 mg Pentoxifylline (Trental) 400 mg PO TIDMEALS [facility] Pneumococcal 13-Valent Conj Vacc (Prevnar 13) 0.5 ml IM .ONCE ONE Stop: 08/07/16 18:27 - Problem List & Annotations (1) Abdominal pain SNOMED Code(s): 99428379 Code(s): R10.9 - UNSPECIFIED ABDOMINAL PAIN Status: Acute Priority: High Current Visit: Yes Qualifiers: Abdominal location: generalized Qualified Code(s): R10.84 - Generalized abdominal pain (2) Compression fracture SNOMED Code(s): 613073312 Code(s): SZX1626 - Status: Acute Priority: High Current Visit: Yes (3) Dehydration SNOMED Code(s): 13469094 Code(s): E86.0 - DEHYDRATION Status: Acute Current Visit: Yes (4) Hyperkalemia SNOMED Code(s): 92758885 Code(s): E87.5 - HYPERKALEMIA Status: Resolved Priority: High Current Visit: Yes (5) Renal insufficiency SNOMED Code(s): 121766947, 481750571 Code(s): N28.9 - DISORDER OF KIDNEY AND URETER, UNSPECIFIED Status: Chronic Priority: Medium Current Visit: Yes - My Orders Last 24 Hours: My Active Orders 08/07/16 15:31 Vital Signs [RC] 03,09,15,21 Code Status [Resuscitation Status] Routine 08/07/16 15:32 Neuro Check [RC] BID Acetaminophen/HYDROcodone [Flatgap 325-5 MG] 1 tab PO Q6H PRN 08/07/16 15:37 Bedrest [RC] QSHIFT 08/07/16 15:38 Antiembolic Devices [RC] QSHIFT Heat Therapy [OM.PC] Routine JESSICA Hose [Antiembolic Hose] [OM.PC] Routine 08/07/16 15:45 Sodium Polystyrene Sulfonate [Kayexalate] 45 gm PO Q8H 08/07/16 16:00 Remove Patch 1 ea TRDERM Q72H fentaNYL [Duragesic] 12 mcg TRDERM Q72H 08/07/16 16:21 Ondansetron [Zofran] 4 mg IVPUSH Q8H PRN 08/07/16 16:30 Lactated Ringers [Ringers, Lactated] 1,000 ml IV ASDIRECTED 08/07/16 21:00 Diazepam [Valium] 1 mg PO BID Simvastatin [Zocor] 20 mg PO BEDTIME 08/07/16 Dinner Clear Liquid Diet [DIET] 08/08/16 03:03 Oxygen Therapy [RC] ASDIRECTED 08/08/16 06:00 Pantoprazole [ProTONIX] 40 mg PO BIDAC 08/08/16 08:00 Consult to Fire Assistant [CONS] Routine 08/08/16 09:00 OT Evaluation and Treatment [CONS] Routine PT Evaluation and Treatment [CONS] Routine Aspirin [Ecotrin] 325 mg PO DAILY Enoxaparin [Lovenox] 30 mg SUBCUT DAILY 08/09/16 05:00 BMP [BASIC METABOLIC PANEL,BMP] [CHEM] DAILY CBC WITH AUTO DIFF [HEME] DAILY MAGNESIUM [CHEM] DAILY 08/10/16 05:00 BMP [BASIC METABOLIC PANEL,BMP] [CHEM] DAILY CBC WITH AUTO DIFF [HEME] DAILY MAGNESIUM [CHEM] DAILY 08/11/16 05:00 BMP [BASIC METABOLIC PANEL,BMP] [CHEM] DAILY CBC WITH AUTO DIFF [HEME] DAILY MAGNESIUM [CHEM] DAILY 08/11/16 07:00 CBC W/O DIFF,HEMOGRAM [HEME] MOTH@0700 08/15/16 07:00 CBC W/O DIFF,HEMOGRAM [HEME] MOTH@0700 08/18/16 07:00 CBC W/O DIFF,HEMOGRAM [HEME] MOTH@0700 08/22/16 07:00 CBC W/O DIFF,HEMOGRAM [HEME] MOTH@0700 08/25/16 07:00 CBC W/O DIFF,HEMOGRAM [HEME] MOTH@0700 - Plan Plan:: Has not been cooperative today for MRI needed for compression fx eval. Anticipate DC 24 or 48 hours DC with improvement of electrolytes
[2016-08-08] MEDS: Nicotine 14 MG/24 Hr Patch TRDERM SCH (13:42)
[2016-08-08] MEDS: Metoclopramide 10 MG/2 ML SDV IVPUSH SCH ×2 (15:40→22:45)
[2016-08-08] MEDS: Simvastatin 20 MG Tab PO SCH (22:44)
[2016-08-08] MEDS: Morphine 2 MG/ML Syringe IVPUSH PRN (22:54)
[2016-08-09] MEDS: Acetaminophen/HYDROcodone 325-5 MG Tab PO PRN ×3 (03:33→20:12)
[2016-08-09] MEDS: Morphine 2 MG/ML Syringe IVPUSH PRN ×3 (04:51→12:17)
[2016-08-09] MEDS: Pantoprazole 40 MG Tab.CR PO SCH ×2 (06:08→16:40)
--- NOTE | 2016-08-09 08:02 | CR ---
Pelvis: AP view of the pelvis was obtained. Comparison: No previous pelvis exam, pelvis is partially seen on abdominal x-ray performed on the same day. Bilateral hip prosthesis are seen. Bony structures are osteopenic. No discrete fracture or other abnormality is appreciated. Impression: 1. Bilateral hip prosthesis and osteopenia. No definite bony abnormality is identified. Diagnostic code #2
--- NOTE | 2016-08-09 08:02 | CR ---
Lumbar spine: AP and lateral views of the lumbar spine were obtained. Moderate compression deformity is seen of L1 and of L4. Inferior endplate concavity is seen of L5. Mild compression deformity is seen within the superior endplate of L4. Mild scattered endplate osteophytes are seen. Bony structures are osteopenic. Bilateral hip prosthesis are seen. Mild vascular calcification is seen. Impression: 1. Compression deformities as described above. These are most likely old although MRI would be needed to confirm this impression. 2. Osteopenia and mild degenerative change. Diagnostic code #3
[2016-08-09] MEDS: Diazepam 2 MG Tab PO SCH ×2 (08:39→20:01)
[2016-08-09] MEDS: Sodium Polystyrene Sulfonate 15 GM/60 ML Susp 60 ML Bot PO SCH (08:39)
[2016-08-09] MEDS: Aspirin 325 MG Tab.EC PO SCH (08:39)
[2016-08-09] MEDS: Enoxaparin 30 MG/0.3 ML Syringe SUBCUT SCH (08:40)
[2016-08-09] MEDS: Metoclopramide 10 MG/2 ML SDV IVPUSH SCH ×3 (08:40→20:02)
[2016-08-09] MEDS: Nicotine 14 MG/24 Hr Patch TRDERM SCH (08:48)
[2016-08-09] MEDS: Potassium Chloride 20 MEQ Tab.ER PO SCH ×3 (09:14→14:41)
[2016-08-09] MEDS ORDERED: Magnesium Sulfate/Water 2 GM in Premix Bag 1 BAG IV ONE (12:00)
[2016-08-09] MEDS ORDERED: chlordiazePOXIDE 10 MG Cap PO ONE (14:30)
--- NOTE | 2016-08-09 14:41 | PCM.PN ---
<Shannon Kimble M - Last Filed: 08/09/16 14:35> - General Info Date of Service: 08/09/16 Admission Dx/Problem (Free Text): Admission Diagnosis/Problem Admission Diagnosis/Problem Hyperkalemia Patient seen this afternoon; resting in bed. OT is in doing therapy with patient. Pain is under better control today. Functional Status: Reports: pain controlled, tolerating diet, ambulating, urinating. Denies: new symptoms - Review of Systems General: Reports: Weakness HEENT: Reports: no symptoms Pulmonary: Reports: no symptoms. Denies: shortness of breath, cough Cardiovascular: Reports: No Symptoms. Denies: Chest Pain, Palpitations, Dyspnea on Exertion Gastrointestinal: Reports: No symptoms, Constipation (did have BM's yesterday). Denies: Abdominal pain, Diarrhea, Nausea, Vomiting Genitourinary: Reports: no symptoms Musculoskeletal: Reports: back pain - Patient Data Vitals - most recent: Last Vital Signs Temp 98.1 F 08/09/16 09:05 Pulse 90 08/09/16 09:05 Resp 22 H 08/09/16 09:05 BP 124/41 L 08/09/16 09:05 Pulse Ox 90 L 08/09/16 09:05 Weight - most recent: 60.872 kg I&O - last 24 hours: Intake & Output 08/08/16 08/09/16 08/09/16 22:59 06:59 14:59 Intake Total 2059 1400 100 Output Total 500 Balance 1559 1400 100 Lab Results last 24 hrs: Laboratory Results - last 24 hr 08/09/16 08/09/16 Range/Units 06:25 06:25 WBC 8.44 (3.98-10.04) K/mm3 RBC 4.24 (3.98-5.22) M/mm3 Hgb 12.5 (11.2-15.7) gm/L Hct 39.9 (34.1-44.9) % MCV 94.1 (79.4-94.8) fl MCH 29.5 (25.6-32.2) pg MCHC 31.3 L (32.2-35.5) g/dl RDW Std Deviation 44.5 (36.4-46.3) fL Plt Count 217 (182-369) K/mm3 MPV 11.2 (9.4-12.3) fl Neut % (Auto) 61.6 (34.0-71.1) % Lymph % (Auto) 24.4 (19.3-51.7) % Mineral % (Auto) 12.1 (4.7-12.5) % Eos % (Auto) 1.2 (0.7-5.8) Baso % (Auto) 0.5 (0.1-1.2) % Neut # (Auto) 5.20 (1.56-6.13) K/mm3 Lymph # (Auto) 2.06 (1.18-3.74) K/mm3 Mineral # (Auto) 1.02 H (0.24-0.36) K/mm3 Eos # (Auto) 0.10 (0.04-0.36) K/mm3 Baso # (Auto) 0.04 (0.01-0.08) K/mm3 Sodium 145 (136-145) mEq/L Potassium 2.5 L (3.5-5.1) mEq/L Chloride 109 H (98-107) mEq/L Carbon Dioxide 25 (21-32) mEq/L Anion Gap 13.5 (5-15) BUN 8 (7-18) mg/dL Creatinine 1.0 (0.55-1.02) mg/dL Est Cr Clr Drug Dosing 37.26 mL/min Estimated GFR (MDRD) 54 (>60) mL/min BUN/Creatinine Ratio 8.0 L (14-18) Glucose 102 (83-115) mg/dL Calcium 7.5 L (8.5-10.1) mg/dL Magnesium 1.5 L (1.8-2.4) mg/dl Med Orders - Current: Current Medications Hydrocodone Bitart/Acetaminophen ([place] 325-5 Mg) 1 tab PO Q6H PRN PRN Reason: pain in feet/toes Last Admin: 08/09/16 03:33 Dose: 1 tab Aspirin (Ecotrin) 325 mg PO DAILY [facility] Last Admin: 08/09/16 08:39 Dose: 325 mg Diazepam (Valium) 1 mg PO BID [facility] Last Admin: 08/09/16 08:39 Dose: 1 mg Enoxaparin Sodium (Lovenox) 30 mg SUBCUT DAILY [facility] Last Admin: 08/09/16 08:40 Dose: 30 mg Fentanyl (Duragesic) 12 mcg TRDERM Q72H [facility] Last Admin: 08/07/16 16:47 Dose: 12 mcg Metoclopramide HCl (Reglan) 10 mg IVPUSH TID [facility] Last Admin: 08/09/16 08:40 Dose: 10 mg Miscellaneous Information (Remove Patch) 1 ea TRDERM Q72H [facility] Last Admin: 08/07/16 17:44 Dose: Not Given Miscellaneous Information (Remove Patch) 0 ea TRDERM DAILY [facility] Last Admin: 08/09/16 08:48 Dose: Not Given Nicotine (Habitrol) 14 mg TRDERM DAILY [facility] Last Admin: 08/09/16 08:48 Dose: Not Given Ondansetron HCl (Zofran) 4 mg IVPUSH Q8H PRN PRN Reason: Nausea/Vomiting Pantoprazole Sodium (Protonix) 40 mg PO BIDAC [facility] Last Admin: 08/09/16 06:08 Dose: 40 mg Potassium Chloride (Klor-Con M20) 20 meq PO Q3H [facility] Stop: 08/09/16 15:01 Last Admin: 08/09/16 12:17 Dose: 20 meq Senna/Docusate Sodium (Senna Plus) 1 tab PO BID [facility] Last Admin: 08/09/16 08:39 Dose: 1 tab Simvastatin (Zocor) 20 mg PO BEDTIME [facility] Last Admin: 08/08/16 22:44 Dose: 20 mg Sodium Chloride (Saline Flush) 10 ml FLUSH ASDIRECTED PRN PRN Reason: Keep Vein Open Last Admin: 08/07/16 12:49 Dose: 10 ml Discontinued Medications Bisacodyl (Dulcolax) 10 mg RECTAL ONETIME ONE Stop: 08/08/16 09:40 Last Admin: 08/08/16 10:22 Dose: 10 mg Chlordiazepoxide HCl (Librium) 10 mg PO PREPRO ONE Stop: 08/09/16 14:31 Cyclobenzaprine HCl (Flexeril) 5 mg PO TID [facility] Diazepam (Valium) 2 mg PO BID [facility] Hydromorphone HCl (Dilaudid) 0.5 mg IVPUSH ONETIME ONE Stop: 08/07/16 12:59 Last Admin: 08/07/16 13:16 Dose: 0.5 mg Sodium Chloride (Normal Saline) 500 mls @ 999 mls/hr IV .BOLUS ONE Stop: 08/07/16 12:56 Last Admin: 08/07/16 12:47 Dose: 999 mls/hr Sodium Chloride (Normal Saline) 1,000 mls @ 75 mls/hr IV ASDIRECTED [facility] Lactated Ringer's (Ringers, Lactated) 1,000 mls @ 75 mls/hr IV ASDIRECTED [facility] Last Admin: 08/08/16 23:32 Dose: 75 mls/hr Magnesium Sulfate 2 gm/ Premix 50 mls @ 25 mls/hr IV ONETIME ONE Stop: 08/09/16 13:59 Last Admin: 08/09/16 12:16 Dose: 25 mls/hr Morphine Sulfate (Morphine) 1 mg IVPUSH Q4H PRN PRN Reason: Pain Last Admin: 08/08/16 05:19 Dose: 1 mg Morphine Sulfate (Morphine) 1 mg IVPUSH Q4H PRN PRN Reason: pain Last Admin: 08/09/16 12:17 Dose: 1 mg Ondansetron HCl (Zofran) 4 mg IVPUSH ONETIME ONE Stop: 08/07/16 12:56 Last Admin: 08/07/16 13:08 Dose: 4 mg Pentoxifylline (Trental) 400 mg PO TIDMEALS [facility] Pneumococcal 13-Valent Conj Vacc (Prevnar 13) 0.5 ml IM .ONCE ONE Stop: 08/07/16 18:27 Sodium Polystyrene Sulfonate (Kayexalate) 45 gm PO Q8H [facility] Last Admin: 08/09/16 08:39 Dose: Not Given - Exam Quality Assessment: DVT prophylaxis General: alert, oriented, cooperative, no acute distress HEENT: Pupils equal, Pupils reactive, EOMI, Mucous membr. moist/pink Neck: supple Lungs: Clear to auscultation, Normal respiratory effort, Decreased breath sounds (mid to lower lobes) Cardiovascular: Regular Rate, Regular Rhythm Abdomen: bowel sounds present, soft, no tenderness, no distension, other ( ventral hernia present; soft, reducable, nontender) (Female) Exam: Deferred Extremities: no edema, no calf tenderness Neurological: no new focal deficit Psy/Mental Status: alert, normal affect, normal mood - Problem List & Annotations (1) Constipation SNOMED Code(s): 15584954 Code(s): K59.00 - CONSTIPATION, UNSPECIFIED Status: Acute Priority: High Current Visit: Yes Qualifiers: Constipation type: drug induced constipation Qualified Code(s): K59.03 - Drug induced constipation Annotation/Comment:: recent narcotic use (2) Abdominal pain SNOMED Code(s): 71699100 Code(s): R10.9 - UNSPECIFIED ABDOMINAL PAIN Status: Acute Priority: High Current Visit: Yes Qualifiers: Abdominal location: generalized Qualified Code(s): R10.84 - Generalized abdominal pain (3) Compression fracture SNOMED Code(s): 950045683 Code(s): FWJ7776 - Status: Acute Priority: High Current Visit: Yes (4) Hyperkalemia SNOMED Code(s): 87197536 Code(s): E87.5 - HYPERKALEMIA Status: Resolved Priority: High Current Visit: Yes (5) Renal insufficiency SNOMED Code(s): 990033874, 399431619 Code(s): N28.9 - DISORDER OF KIDNEY AND URETER, UNSPECIFIED Status: Chronic Priority: Medium Current Visit: Yes (6) Hypokalemia SNOMED Code(s): 74136031 Code(s): E87.6 - HYPOKALEMIA Status: Acute Priority: High Current Visit : Yes (7) Hypomagnesemia SNOMED Code(s): 404319799 Code(s): E83.42 - HYPOMAGNESEMIA Status: Acute Priority: High Current Visit: Yes - Problem List Review Problem List Initiated/Reviewed/Updated: Yes - My Orders Last 24 Hours: My Active Orders 08/08/16 15:00 Metoclopramide [Reglan] 10 mg IVPUSH TID 08/09/16 07:38 Activity as Tolerated [RC] .Routine 08/09/16 09:00 Potassium Chloride [Klor-Con M20] 20 meq PO Q3H Remove Patch 0 ea TRDERM DAILY 08/09/16 10:49 Lumbar Spine Comp wo Cont [MR] Routine 08/09/16 Breakfast Heart Healthy Diet [DIET] - Assessment Assessment:: I/P: Hyperkalemia on admission--resolved with kayexalate; now today with HYPOKALEMIA of 2.5 today -Replace K+ today, check mag -Cont to follow am labs Hypomagnesemia- Replace and follow am labs Abdominal pain -- likely d/t acute opioid induced constipation -Recent narcotic use for back pain, compression fracture -Ventral hernia present -Abd xray on admission and yesterday with ? early ileus; will cont to follow --did have BM's x 2 yesterday with improvement/resolution of abd pain symptoms -Reglan IVP TID, Senna, Suppository Compression fracture lumbar spine -Patient was to see Dr. Herrera today in clinic for consult- will consult for opinion. Pain is improved with fentanyl patch. -MRI to be scheduled for today for further eval; unalbe to do MRI yesterday, sedation ordered for MRI to be done today. -Plan for kyphoplasty on with Dr. Herrera; DC prior or before procedure. -Pain management and PT until that time. Other: Cont home meds DVT/GI prophylax PT/OT CM/SW for assist with DC planning--Plan DC in 48 hours for planned outpatient kyphoplasty. LOS may be >96 hours for pain control, follow of electrolyte abnormalities Patient is Full Code status - Plan Plan:: Has not been cooperative today for MRI needed for compression fx eval. Anticipate DC 24 or 48 hours DC with improvement of electrolytes <Caryl Espinoza - Last Filed: 08/09/16 16:45> - Patient Data Vitals - most recent: Last Vital Signs Temp 36.7 C 08/09/16 09:05 Pulse 90 08/09/16 09:05 Resp 22 H 08/09/16 09:05 BP 124/41 L 08/09/16 09:05 Pulse Ox 90 L 08/09/16 09:05 I&O - last 24 hours: Intake & Output 08/09/16 08/09/16 08/09/16 06:59 14:59 22:59 Intake Total 1400 100 210 Balance 1400 100 210 Lab Results last 24 hrs: Laboratory Results - last 24 hr 08/09/16 08/09/16 Range/Units 06:25 06:25 WBC 8.44 (3.98-10.04) K/mm3 RBC 4.24 (3.98-5.22) M/mm3 Hgb 12.5 (11.2-15.7) gm/L Hct 39.9 (34.1-44.9) % MCV 94.1 (79.4-94.8) fl MCH 29.5 (25.6-32.2) pg MCHC 31.3 L (32.2-35.5) g/dl RDW Std Deviation 44.5 (36.4-46.3) fL Plt Count 217 (182-369) K/mm3 MPV 11.2 (9.4-12.3) fl Neut % (Auto) 61.6 (34.0-71.1) % Lymph % (Auto) 24.4 (19.3-51.7) % Mineral % (Auto) 12.1 (4.7-12.5) % Eos % (Auto) 1.2 (0.7-5.8) Baso % (Auto) 0.5 (0.1-1.2) % Neut # (Auto) 5.20 (1.56-6.13) K/mm3 Lymph # (Auto) 2.06 (1.18-3.74) K/mm3 Mineral # (Auto) 1.02 H (0.24-0.36) K/mm3 Eos # (Auto) 0.10 (0.04-0.36) K/mm3 Baso # (Auto) 0.04 (0.01-0.08) K/mm3 Sodium 145 (136-145) mEq/L Potassium 2.5 L (3.5-5.1) mEq/L Chloride 109 H (98-107) mEq/L Carbon Dioxide 25 (21-32) mEq/L Anion Gap 13.5 (5-15) BUN 8 (7-18) mg/dL Creatinine 1.0 (0.55-1.02) mg/dL Est Cr Clr Drug Dosing 37.26 mL/min Estimated GFR (MDRD) 54 (>60) mL/min BUN/Creatinine Ratio 8.0 L (14-18) Glucose 102 (83-115) mg/dL Calcium 7.5 L (8.5-10.1) mg/dL Magnesium 1.5 L (1.8-2.4) mg/dl Med Orders - Current: Current Medications Hydrocodone Bitart/Acetaminophen ([place] 325-5 Mg) 1 tab PO Q6H PRN PRN Reason: pain in feet/toes Last Admin: 08/09/16 14:40 Dose: 1 tab Aspirin (Ecotrin) 325 mg PO DAILY [facility] Last Admin: 08/09/16 08:39 Dose: 325 mg Diazepam (Valium) 1 mg PO BID [facility] Last Admin: 08/09/16 08:39 Dose: 1 mg Enoxaparin Sodium (Lovenox) 30 mg SUBCUT DAILY [facility] Last Admin: 08/09/16 08:40 Dose: 30 mg Fentanyl (Duragesic) 12 mcg TRDERM Q72H [facility] Last Admin: 08/07/16 16:47 Dose: 12 mcg Metoclopramide HCl (Reglan) 10 mg IVPUSH TID [facility] Last Admin: 08/09/16 14:39 Dose: 10 mg Miscellaneous Information (Remove Patch) 1 ea TRDERM Q72H [facility] Last Admin: 08/07/16 17:44 Dose: Not Given Miscellaneous Information (Remove Patch) 0 ea TRDERM DAILY [facility] Last Admin: 08/09/16 08:48 Dose: Not Given Nicotine (Habitrol) 14 mg TRDERM DAILY [facility] Last Admin: 08/09/16 08:48 Dose: Not Given Ondansetron HCl (Zofran) 4 mg IVPUSH Q8H PRN PRN Reason: Nausea/Vomiting Pantoprazole Sodium (Protonix) 40 mg PO BIDAC [facility] Last Admin: 08/09/16 16:40 Dose: 40 mg Senna/Docusate Sodium (Senna Plus) 1 tab PO BID [facility] Last Admin: 08/09/16 08:39 Dose: 1 tab Simvastatin (Zocor) 20 mg PO BEDTIME [facility] Last Admin: 08/08/16 22:44 Dose: 20 mg Sodium Chloride (Saline Flush) 10 ml FLUSH ASDIRECTED PRN PRN Reason: Keep Vein Open Last Admin: 08/07/16 12:49 Dose: 10 ml Discontinued Medications Bisacodyl (Dulcolax) 10 mg RECTAL ONETIME ONE Stop: 08/08/16 09:40 Last Admin: 08/08/16 10:22 Dose: 10 mg Chlordiazepoxide HCl (Librium) 10 mg PO PREPRO ONE Stop: 08/09/16 14:31 Last Admin: 08/09/16 14:40 Dose: 10 mg Cyclobenzaprine HCl (Flexeril) 5 mg PO TID [facility] Diazepam (Valium) 2 mg PO BID [facility] Hydromorphone HCl (Dilaudid) 0.5 mg IVPUSH ONETIME ONE Stop: 08/07/16 12:59 Last Admin: 08/07/16 13:16 Dose: 0.5 mg Sodium Chloride (Normal Saline) 500 mls @ 999 mls/hr IV .BOLUS ONE Stop: 08/07/16 12:56 Last Admin: 08/07/16 12:47 Dose: 999 mls/hr Sodium Chloride (Normal Saline) 1,000 mls @ 75 mls/hr IV ASDIRECTED [facility] Lactated Ringer's (Ringers, Lactated) 1,000 mls @ 75 mls/hr IV ASDIRECTED [facility] Last Admin: 08/08/16 23:32 Dose: 75 mls/hr Magnesium Sulfate 2 gm/ Premix 50 mls @ 25 mls/hr IV ONETIME ONE Stop: 08/09/16 13:59 Last Admin: 08/09/16 12:16 Dose: 25 mls/hr Morphine Sulfate (Morphine) 1 mg IVPUSH Q4H PRN PRN Reason: Pain Last Admin: 08/08/16 05:19 Dose: 1 mg Morphine Sulfate (Morphine) 1 mg IVPUSH Q4H PRN PRN Reason: pain Last Admin: 08/09/16 12:17 Dose: 1 mg Ondansetron HCl (Zofran) 4 mg IVPUSH ONETIME ONE Stop: 08/07/16 12:56 Last Admin: 08/07/16 13:08 Dose: 4 mg Pentoxifylline (Trental) 400 mg PO TIDMEALS [facility] Pneumococcal 13-Valent Conj Vacc (Prevnar 13) 0.5 ml IM .ONCE ONE Stop: 08/07/16 18:27 Potassium Chloride (Klor-Con M20) 20 meq PO Q3H [facility] Stop: 08/09/16 15:01 Last Admin: 08/09/16 14:41 Dose: 20 meq Sodium Polystyrene Sulfonate (Kayexalate) 45 gm PO Q8H [facility] Last Admin: 08/09/16 08:39 Dose: Not Given - Problem List & Annotations (1) Abdominal pain SNOMED Code(s): 00819213 Code(s): R10.9 - UNSPECIFIED ABDOMINAL PAIN Status: Acute Priority: High Current Visit: Yes Qualifiers: Abdominal location: generalized Qualified Code(s): R10.84 - Generalized abdominal pain (2) Compression fracture SNOMED Code(s): 750051678 Code(s): FKL8893 - Status: Acute Priority: High Current Visit: Yes (3) Dehydration SNOMED Code(s): 35902251 Code(s): E86.0 - DEHYDRATION Status: Acute Current Visit: Yes (4) Hyperkalemia SNOMED Code(s): 59486468 Code(s): E87.5 - HYPERKALEMIA Status: Resolved Priority: High Current Visit: Yes (5) Renal insufficiency SNOMED Code(s): 190469233, 219334491 Code(s): N28.9 - DISORDER OF KIDNEY AND URETER, UNSPECIFIED Status: Chronic Priority: Medium Current Visit: Yes - My Orders Last 24 Hours: My Active Orders 08/10/16 05:00 BMP [BASIC METABOLIC PANEL,BMP] [CHEM] DAILY CBC WITH AUTO DIFF [HEME] DAILY MAGNESIUM [CHEM] DAILY 08/11/16 05:00 BMP [BASIC METABOLIC PANEL,BMP] [CHEM] DAILY CBC WITH AUTO DIFF [HEME] DAILY MAGNESIUM [CHEM] DAILY 08/11/16 07:00 CBC W/O DIFF,HEMOGRAM [HEME] MOTH@0700 08/15/16 07:00 CBC W/O DIFF,HEMOGRAM [HEME] MOTH@0700 08/18/16 07:00 CBC W/O DIFF,HEMOGRAM [HEME] MOTH@0700 08/22/16 07:00 CBC W/O DIFF,HEMOGRAM [HEME] MOTH@0700 08/25/16 07:00 CBC W/O DIFF,HEMOGRAM [HEME] MOTH@0700 - Plan Plan:: MRI today, plan for kyphoplasty on , 08/11/16.
--- NOTE | 2016-08-09 15:54 | CONS ---
CONSULTING PHYSICIAN: Raudel Herrera MD DATE OF CONSULTATION: 08/09/2016 HISTORY: Orthopedic consultation called for by the hospitalist for evaluation of severe lumbar spine pain. The patient had onset of severe increasing pain dating back to 07/24/2016. No specific injury was noted. The patient and the family note that the pain scale was a 10. The patient was unable to move or do any type of activity. She was taken to the emergency room in [place], [place]. Evaluated by Dr. Keith. X-rays were taken, and she was found to have compression fractures of the lumbar spine. She was given a pain medicine and sent home. The patient continued to have severe increasing pain in and around the back area. She notes there has been no improvement with the pain program that has been offered to her. The patient was then transferred and brought down to the hospital here in [place], evaluated through the emergency room, evaluated for the severe pain problem and also urinary and kidney dysfunction, and admitted to the hospital for treatment, which would include medical evaluation and treatment for a possible urinary tract disease. The patient's pain at the time of admission and from the family level, was approximately a 9 to 10. The patient currently is on multiple severe increased dosage of pain medicines and currently has a resting status of pain with the large dose of narcotics at approximately a pain score of 8. Any type of movement produces pain score of 10. The patient on the history notes that prior to the onset of pain dating back to July 24, 2016, the patient was an ambulatory patient. She was able to do her functional activities around her home. She could wash dishes, she could do some cooking, also she could wash her clothes and dress herself, and go to the bathroom without problems. She was limited on her activity level with walking-type activity due to previous hip surgery with prosthesis for fractured hip replacement. But otherwise, the patient has significant pain levels that have not been helped with a bedrest program for several days and new x-rays continue to confirm the compression fracture status of the lower lumbar spine area. ALLERGIES: No known drug allergies. MEDICAL: A 75-year-old female who has had a history of increased cholesterol. CURRENT MEDICATIONS: At the time of admission was Lipitor. PAST SURGICAL HISTORY: Positive. She has had previous hernia surgery. She also has had previous hip surgery, right and left side, for fractured hips and prosthesis. The family notes, and the patient notes, that she had no anesthesia complications. SOCIAL HISTORY: The patient smokes 1 pack every 3 days of cigarettes. Alcohol use, the patient drinks 3 to 4 beers on a nightly basis. REVIEW OF SYSTEMS: HEAD, EYES, EARS, NOSE, AND THROAT: Does not complain of any severe nose or head cold type problems. NECK: Stable with no increasing pain. CHEST: The patient has a chronic cough and discomfort in the chest area, but otherwise has been stable. ABDOMEN: She also complains of some abdominal discomfort and some mild pain in the abdominal area. The patient notes no pelvic or urinary tract problems, other than some burning when she passes urine. MUSCULOSKELETAL: The review of the musculoskeletal system following the relation to the severe pain in the lower lumbar spine area, otherwise, the arms and legs are intact. PHYSICAL EXAMINATION: GENERAL: A 75-year-old female in [id number] distress. HEAD, EYES, EARS, NOSE, AND THROAT: Normocephalic. NECK: Supple. CHEST: Clear. COR: Regular rate with normal heart sounds. ABDOMEN: Soft and nontender. There are bowel sounds present. MUSCULOSKELETAL: Back, the patient has severe back pain, paravertebral muscle spasms on both sides. She has positive pain to percussion and palpation beginning at the thoracolumbar junction and extending down to the L5 region. Other than that, she has had negative sciatic nerve stretch examination for any type of radicular type pain. IMAGING: The x-rays were reviewed that were recently taken on 08/08/2016 of the lumbar spine, shows severe osteoporosis with compression fractures of L1, at 50% or greater, L4 at approximately 20% to 30%, L5 inferior endplate at approximately 15%. The pelvis x-ray reveals a stable pelvis. The patient has had previous bilateral hemiprosthesis surgery for a fractured hip, probably subcapital. Otherwise, x-ray does not show any major problem. OVERALL IMPRESSION: After review of the x-rays and the current patient status, she has severe osteoporotic compression fractures of L1, L4, and L5. PLAN: 1. I feel the patient will need to continue the pain management with the narcotic medications at this point. 2. The patient needs MRI evaluation of lumbar spine to determine which fractures are active. 3. With the pain level being severe in 3 weeks, with no improvement, other than the heavy dose of narcotics, I would suggest that the patient have a kyphoplasty fracture stabilization to speed her recovery and allow her to be discharged to her home to continue convalescence. MELY /[id number]
--- NOTE | 2016-08-09 16:44 | MR ---
MRI lumbar spine Technique: T1 axial images were obtained from above T12-L1 disc inferiorly through the L5-S1 disc. T2-weighted axial images were also obtained through the same disc levels. T1, T2 and fat suppressed inversion recovery sagittal images were also obtained. Comparison: Previous plain film study of 08/08/16. Findings: T10-T11 and T11-T12: Posterior discs are maintained. No central canal stenosis or neural foraminal stenosis is seen. T12-L1: Minimal posterior disc bulge is seen. No central canal stenosis or neural foraminal stenosis is seen. L1-L2: Moderate compression deformity is seen of L1. This appears to be fairly acute as bone marrow edema is present. There is retrolisthesis of the posterior and superior vertebral line by approximately 6 mm into the central canal. Central canal still shows sufficient room for the distal thoracic cord. Disc is maintained. No central canal stenosis or neural foraminal stenosis is seen. L2-L3: Posterior disc is preserved. Minimal degenerative apophyseal change is seen. No central canal stenosis or neural foraminal stenosis is seen. L3-L4: Mild circumferential disc bulge is seen. Mild to moderate degenerative apophyseal change is seen. Very minimal central canal stenosis is present. Disc bulging is seen into both inferior neural foramina but nerve roots appear to exit without definite compromise. L4-L5: Moderate compression deformity of L4 is seen. No bone marrow edema is identified within this vertebral compression deformity and this finding is therefore felt to be old. Slight circumferential disc bulge is seen. Posterior disc has a planar margin. Mild to moderate degenerative apophyseal change is seen. Very minimal central canal stenosis is seen which is felt not to be clinically significant at this time. Neural foramina are patent where the nerve roots exit. L5-S1: Posterior disc is preserved. Mild degenerative apophyseal change is seen. No central canal stenosis is noted. Moderate right-sided neural foraminal stenosis is seen causing compromise of the exiting L5 nerve root. Left neural foramina is patent where the nerve root exits. 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 Scattered degenerative dehydration change is noted within the discs. Conus medullaris and cauda equina shows no abnormal signal or mass. Impression: 1. Moderate compression deformity of L1 which appears fairly acute as bone marrow edema is seen. Mild retrolisthesis of the posterior and superior vertebral line is seen by about 6 mm. Sufficient central canal width remains without compromise upon the distal thoracic cord. 2. Compression deformity of L4 is old. 3. Degenerative change as noted above. Most prominent degenerative change is fairly severe right-sided neural foraminal stenosis at L5-S1 causing compromise upon the exiting right L5 nerve root. Diagnostic code #3
[2016-08-09] MEDS: Simvastatin 20 MG Tab PO SCH (20:01)
[2016-08-10] MEDS: Acetaminophen/HYDROcodone 325-5 MG Tab PO PRN ×2 (04:19→20:37)
[2016-08-10] MEDS: Pantoprazole 40 MG Tab.CR PO SCH ×2 (05:58→16:54)
[2016-08-10] MEDS: Pentoxifylline 400 MG Tab.ER PO SCH ×3 (06:00→16:54)
--- NOTE | 2016-08-10 07:37 | PCM.PN ---
- General Info Date of Service: 08/10/16 Admission Dx/Problem (Free Text): Admission Diagnosis/Problem Admission Diagnosis/Problem Hyperkalemia Patient seen this morning; resting in bed. Pain is somewhat controlled/improved control today. Has been working with PT/OT. Bowels are moving. Oxygen saturations were low on RA most of the day yesterday and overnight down to 81% on room air. She will likely need home O2 at time of discharge. Plans for DC likely tomorrow based on pain control and electrolyte status. Functional Status: Reports: tolerating diet, ambulating (with assist 1-2 and walker), urinating - Review of Systems General: Reports: No Symptoms, Weakness (generalized) HEENT: Reports: no symptoms Pulmonary: Reports: no symptoms. Denies: shortness of breath, cough Cardiovascular: Reports: No Symptoms. Denies: Chest Pain Gastrointestinal: Reports: No symptoms. Denies: Abdominal pain, Diarrhea, Nausea, Vomiting Musculoskeletal: Reports: back pain - Patient Data Vitals - most recent: Last Vital Signs Temp 98.4 F 08/09/16 20:03 Pulse 60 08/10/16 04:36 Resp 20 08/10/16 04:36 BP 164/79 H 08/10/16 04:36 Pulse Ox 90 L 08/10/16 04:36 Weight - most recent: 126 lb 12.8 oz I&O - last 24 hours: Intake & Output 08/09/16 08/10/16 08/10/16 22:59 06:59 14:59 Intake Total 1045 200 Balance 1045 200 Lab Results last 24 hrs: Laboratory Results - last 24 hr 08/09/16 08/09/16 08/10/16 Range/Units 06:25 06:25 05:41 WBC 8.44 9.66 (3.98-10.04) K/mm3 RBC 4.24 4.22 (3.98-5.22) M/mm3 Hgb 12.5 12.8 (11.2-15.7) gm/L Hct 39.9 40.0 (34.1-44.9) % MCV 94.1 94.8 (79.4-94.8) fl MCH 29.5 30.3 (25.6-32.2) pg MCHC 31.3 L 32.0 L (32.2-35.5) g/dl RDW Std Deviation 44.5 44.3 (36.4-46.3) fL Plt Count 217 234 (182-369) K/mm3 MPV 11.2 10.7 (9.4-12.3) fl Neut % (Auto) 61.6 68.3 (34.0-71.1) % Lymph % (Auto) 24.4 19.2 L (19.3-51.7) % [place] % (Auto) 12.1 9.4 (4.7-12.5) % Eos % (Auto) 1.2 2.0 (0.7-5.8) Baso % (Auto) 0.5 0.6 (0.1-1.2) % Neut # (Auto) 5.20 6.60 H (1.56-6.13) K/mm3 Lymph # (Auto) 2.06 1.85 (1.18-3.74) K/mm3 [place] # (Auto) 1.02 H 0.91 H (0.24-0.36) K/mm3 Eos # (Auto) 0.10 0.19 (0.04-0.36) K/mm3 Baso # (Auto) 0.04 0.06 (0.01-0.08) K/mm3 Sodium 145 (136-145) mEq/L Potassium 2.5 L (3.5-5.1) mEq/L Chloride 109 H (98-107) mEq/L Carbon Dioxide 25 (21-32) mEq/L Anion Gap 13.5 (5-15) BUN 8 (7-18) mg/dL Creatinine 1.0 (0.55-1.02) mg/dL Est Cr Clr Drug Dosing 37.26 mL/min Estimated GFR (MDRD) 54 (>60) mL/min BUN/Creatinine Ratio 8.0 L (14-18) Glucose 102 (83-115) mg/dL Calcium 7.5 L (8.5-10.1) mg/dL Magnesium 1.5 L (1.8-2.4) mg/dl 08/10/16 Range/Units 05:41 WBC (3.98-10.04) K/mm3 RBC (3.98-5.22) M/mm3 Hgb (11.2-15.7) gm/L Hct (34.1-44.9) % MCV (79.4-94.8) fl MCH (25.6-32.2) pg MCHC (32.2-35.5) g/dl RDW Std Deviation (36.4-46.3) fL Plt Count (182-369) K/mm3 MPV (9.4-12.3) fl Neut % (Auto) (34.0-71.1) % Lymph % (Auto) (19.3-51.7) % [place] % (Auto) (4.7-12.5) % Eos % (Auto) (0.7-5.8) Baso % (Auto) (0.1-1.2) % Neut # (Auto) (1.56-6.13) K/mm3 Lymph # (Auto) (1.18-3.74) K/mm3 [place] # (Auto) (0.24-0.36) K/mm3 Eos # (Auto) (0.04-0.36) K/mm3 Baso # (Auto) (0.01-0.08) K/mm3 Sodium 143 (136-145) mEq/L Potassium 2.9 L (3.5-5.1) mEq/L Chloride 109 H (98-107) mEq/L Carbon Dioxide 26 (21-32) mEq/L Anion Gap 10.9 (5-15) BUN 8 (7-18) mg/dL Creatinine 0.9 (0.55-1.02) mg/dL Est Cr Clr Drug Dosing 41.40 mL/min Estimated GFR (MDRD) > 60 (>60) mL/min BUN/Creatinine Ratio 8.9 L (14-18) Glucose 106 (83-115) mg/dL Calcium 7.7 L (8.5-10.1) mg/dL Magnesium 2.0 (1.8-2.4) mg/dl Med Orders - Current: Current Medications Hydrocodone Bitart/Acetaminophen ([place] 325-5 Mg) 1 tab PO Q6H PRN PRN Reason: pain in feet/toes Last Admin: 08/10/16 04:19 Dose: 1 tab Aspirin (Ecotrin) 325 mg PO DAILY [facility] Last Admin: 08/09/16 08:39 Dose: 325 mg Diazepam (Valium) 1 mg PO BID [facility] Last Admin: 08/09/16 20:01 Dose: 1 mg Enoxaparin Sodium (Lovenox) 30 mg SUBCUT DAILY [facility] Last Admin: 08/09/16 08:40 Dose: 30 mg Fentanyl (Duragesic) 12 mcg TRDERM Q72H [facility] Last Admin: 08/07/16 16:47 Dose: 12 mcg Metoclopramide HCl (Reglan) 10 mg IVPUSH TID [facility] Last Admin: 08/09/16 20:02 Dose: 10 mg Miscellaneous Information (Remove Patch) 1 ea TRDERM Q72H [facility] Last Admin: 08/07/16 17:44 Dose: Not Given Miscellaneous Information (Remove Patch) 0 ea TRDERM DAILY [facility] Last Admin: 08/09/16 08:48 Dose: Not Given Nicotine (Habitrol) 14 mg TRDERM DAILY [facility] Last Admin: 08/09/16 08:48 Dose: Not Given Ondansetron HCl (Zofran) 4 mg IVPUSH Q8H PRN PRN Reason: Nausea/Vomiting [facility] Last Admin: 08/10/16 05:58 Dose: 40 mg Pentoxifylline (Trental) 400 mg PO TIDMEALS [facility] Last Admin: 08/10/16 06:00 Dose: 400 mg Potassium Chloride (Klor-Con M20) 20 meq PO TID [facility] Senna/Docusate Sodium (Senna Plus) 1 tab PO BID [facility] Last Admin: 08/09/16 20:01 Dose: 1 tab Simvastatin (Zocor) 20 mg PO BEDTIME [facility] Last Admin: 08/09/16 20:01 Dose: 20 mg Sodium Chloride (Saline Flush) 10 ml FLUSH ASDIRECTED PRN PRN Reason: Keep Vein Open Last Admin: 08/07/16 12:49 Dose: 10 ml Discontinued Medications Bisacodyl (Dulcolax) 10 mg RECTAL ONETIME ONE Stop: 08/08/16 09:40 Last Admin: 08/08/16 10:22 Dose: 10 mg Chlordiazepoxide HCl (Librium) 10 mg PO PREPRO ONE Stop: 08/09/16 14:31 Last Admin: 08/09/16 14:40 Dose: 10 mg Cyclobenzaprine HCl (Flexeril) 5 mg PO TID [facility] Diazepam (Valium) 2 mg PO BID [facility] Hydromorphone HCl (Dilaudid) 0.5 mg IVPUSH ONETIME ONE Stop: 08/07/16 12:59 Last Admin: 08/07/16 13:16 Dose: 0.5 mg Sodium Chloride (Normal Saline) 500 mls @ 999 mls/hr IV .BOLUS ONE Stop: 08/07/16 12:56 Last Admin: 08/07/16 12:47 Dose: 999 mls/hr Sodium Chloride (Normal Saline) 1,000 mls @ 75 mls/hr IV ASDIRECTED [facility] Lactated Ringer's (Ringers, Lactated) 1,000 mls @ 75 mls/hr IV ASDIRECTED [facility] Last Admin: 08/08/16 23:32 Dose: 75 mls/hr Magnesium Sulfate 2 gm/ Premix 50 mls @ 25 mls/hr IV ONETIME ONE Stop: 08/09/16 13:59 Last Admin: 08/09/16 12:16 Dose: 25 mls/hr Morphine Sulfate (Morphine) 1 mg IVPUSH Q4H PRN PRN Reason: Pain Last Admin: 08/08/16 05:19 Dose: 1 mg Morphine Sulfate (Morphine) 1 mg IVPUSH Q4H PRN PRN Reason: pain Last Admin: 08/09/16 12:17 Dose: 1 mg Ondansetron HCl (Zofran) 4 mg IVPUSH ONETIME ONE Stop: 08/07/16 12:56 Last Admin: 08/07/16 13:08 Dose: 4 mg Pentoxifylline (Trental) 400 mg PO TIDMEALS [facility] Pneumococcal 13-Valent Conj Vacc (Prevnar 13) 0.5 ml IM .ONCE ONE Stop: 08/07/16 18:27 Potassium Chloride (Klor-Con M20) 20 meq PO Q3H [facility] Stop: 08/09/16 15:01 Last Admin: 08/09/16 14:41 Dose: 20 meq Sodium Polystyrene Sulfonate (Kayexalate) 45 gm PO Q8H [facility] Last Admin: 08/09/16 08:39 Dose: Not Given - Exam Quality Assessment: DVT prophylaxis General: alert, oriented, cooperative, no acute distress HEENT: Pupils equal, Pupils reactive, EOMI, Mucous membr. moist/pink Neck: supple Lungs: Clear to auscultation, Normal respiratory effort, Decreased breath sounds (mid to lower lobes) Cardiovascular: Regular Rate, Regular Rhythm Abdomen: bowel sounds present, soft, no distension, other (ventral hernia; soft , reducable, nontender today) (Female) Exam: Deferred Extremities: no edema, no calf tenderness Peripheral Pulses: 1+: Dorsalis Pedis (L), Dorsalis Pedis (R) Neurological: no new focal deficit Psy/Mental Status: alert, normal affect - Problem List & Annotations (1) Constipation SNOMED Code(s): 12131883 Code(s): K59.00 - CONSTIPATION, UNSPECIFIED Status: Resolved Priority: High Current Visit: Yes Qualifiers: Constipation type: drug induced constipation Qualified Code(s): K59.03 - Drug induced constipation Annotation/Comment:: recent narcotic use (2) Abdominal pain SNOMED Code(s): 46328397 Code(s): R10.9 - UNSPECIFIED ABDOMINAL PAIN Status: Resolved Priority: High Current Visit: Yes Qualifiers: Abdominal location: generalized Qualified Code(s): R10.84 - Generalized abdominal pain (3) Compression fracture SNOMED Code(s): 495094489 Code(s): CCX9322 - Status: Acute Priority: High Current Visit: Yes (4) Hyperkalemia SNOMED Code(s): 19579884 Code(s): E87.5 - HYPERKALEMIA Status: Resolved Priority: High Current Visit: Yes (5) Renal insufficiency SNOMED Code(s): 922308797, 458758382 Code(s): N28.9 - DISORDER OF KIDNEY AND URETER, UNSPECIFIED Status: Chronic Priority: Medium Current Visit: Yes (6) Hypokalemia SNOMED Code(s): 55409755 Code(s): E87.6 - HYPOKALEMIA Status: Acute Priority: High Current Visit : Yes (7) Hypomagnesemia SNOMED Code(s): 386288030 Code(s): E83.42 - HYPOMAGNESEMIA Status: Resolved Priority: High Current Visit: Yes (8) Hypoxia SNOMED Code(s): 616630390, 832776116 Code(s): R09.02 - HYPOXEMIA Status: Acute Priority: High Current Visit : Yes - Problem List Review Problem List Initiated/Reviewed/Updated: Yes - My Orders Last 24 Hours: My Active Orders 06/06/17 07:38 Activity as Tolerated [RC] .Routine 08/09/16 09:00 Remove Patch 0 ea TRDERM DAILY 08/09/16 Breakfast Heart Healthy Diet [DIET] 08/10/16 07:00 Pentoxifylline [TRENtal] 400 mg PO TIDMEALS 08/10/16 09:00 Potassium Chloride [Klor-Con M20] 20 meq PO TID - Assessment Assessment:: I/P: Hyperkalemia on admission--resolved with kayexalate; now today with HYPOKALEMIA of 2.5 today -Replace K+ today, check mag -Cont to follow am labs Hypomagnesemia- Replace and follow am labs Abdominal pain -- likely d/t acute opioid induced constipation -Recent narcotic use for back pain, compression fracture -Ventral hernia present -Abd xray on admission and yesterday with ? early ileus; will cont to follow --did have BM's x 2 yesterday with improvement/resolution of abd pain symptoms -Reglan IVP TID, Senna, Suppository Compression fracture lumbar spine -Patient was to see Dr. Herrera today in clinic for consult- will consult for opinion. Pain is improved with fentanyl patch. -MRI to be scheduled for today for further eval; unalbe to do MRI yesterday, sedation ordered for MRI to be done today. -Plan for kyphoplasty on with Dr. Herrera; DC prior or before procedure. -Pain management and PT until that time. Other: Cont home meds DVT/GI prophylax PT/OT CM/SW for assist with DC planning--Plan DC in 48 hours for planned outpatient kyphoplasty. LOS may be >96 hours for pain control, follow of electrolyte abnormalities Patient is Full Code status - Plan Plan:: I/P: Hyperkalemia on admission--resolved with kayexalate; now today with HYPOKALEMIA- -2.5--->2.9 today -Replace K+ today, check mag -Cont to follow labs; will recheck K+ later today. Hypomagnesemia- resolved; 2.0 today Replace and follow am labs Abdominal pain -- likely d/t acute opioid induced constipation -Recent narcotic use for back pain, compression fracture, immobility -Ventral hernia present -Abd xray on admission and yesterday with ? early ileus; will cont to follow --did have BM's x 2 yesterday with improvement/resolution of abd pain symptoms -DC reglan IV, bowel regimen with PO meds, Senna, Suppository PRN. Compression fracture lumbar spine -Patient was to see Dr. Herrera in clinic for consult - will consult for opinion. Pain is improved with fentanyl patch. -MRI completed yesterday with apparent acute compression fx of L1 and L4. -Plan for kyphoplasty on with Dr. Herrera; DC prior or before procedure. -Pain management and PT until that time. Hypoxia -O2 qualifying study with RT today confirms she continues to be hypoxic on RA , was also overnight. -Home O2 orders in place with assistance of CM. -Education re: smoking cessation and use of home oxygen/fire and safety--No smoking with oxygen in home. Son voices understanding. Other: Cont home meds DVT/GI prophylax PT/OT CM/SW for assist with DC planning--Plan DC in 24 hours prior to planned outpatient kyphoplasty. LOS may be >96 hours for pain control, follow of electrolyte abnormalities Patient is Full Code status
[2016-08-10] MEDS: Diazepam 2 MG Tab PO SCH ×2 (08:41→20:38)
[2016-08-10] MEDS: Aspirin 325 MG Tab.EC PO SCH (08:42)
[2016-08-10] MEDS: Potassium Chloride 20 MEQ Tab.ER PO SCH ×3 (08:43→20:37)
[2016-08-10] MEDS: Metoclopramide 10 MG/2 ML SDV IVPUSH SCH (08:43)
[2016-08-10] MEDS: Nicotine 14 MG/24 Hr Patch TRDERM SCH (08:44)
[2016-08-10] MEDS: Enoxaparin 30 MG/0.3 ML Syringe SUBCUT SCH (08:45)
--- NOTE | 2016-08-10 13:18 | PCM.PREANE ---
Preanesthetic Assessment - Anesthesia/Transfusion/Family Hx Anesthesia History: Prior Anesthesia Without Reaction Family History of Anesthesia Reaction: No Transfusion History: No Prior Transfusion(s) - Review of Systems General: No Symptoms, Weakness Pulmonary: Shortness of Breath Cardiovascular: Chest Pain (at times when is up and around), Dyspnea on Exertion Gastrointestinal: No symptoms, Decreased appetite Neurological: Confusion (since stroke), Trouble Speaking (hard to understand- seems confused), Weakness, Other (stroke in past) Other: Reports: Depression - Physical Assessment NPO Status Date: 08/10/16 NPO Status Time: 23:30 Pulse: 80 O2 Sat by Pulse Oximetry: 94 Respiratory Rate: 14 Blood Pressure: 119/53 Temperature: 98.2 F Vital Signs: Last Vital Signs Temp 98.2 F 08/10/16 07:58 Pulse 80 08/10/16 07:58 Resp 14 08/10/16 07:58 BP 119/53 L 08/10/16 07:58 Pulse Ox 85 L 08/10/16 08:50 Height: 5 ft 2 in Weight: 57.516 kg ASA Class: 3 Mental Status: Other (confused- thinks she is in a hotel) Airway Class: Mallampati = 2 Dentition: Reports: Dentures (top), Edentulous (bottom) Thyro-Mental Finger Breadths: 3 Mouth Opening Finger Breadths: 3 Lungs: Clear to auscultation, Normal respiratory effort, Decreased breath sounds Cardiovascular: Regular Rate, Regular Rhythm - Lab Values: Laboratory Last Values WBC 9.66 K/mm3 (3.98-10.04) 08/10/16 05:41 RBC 4.22 M/mm3 (3.98-5.22) 08/10/16 05:41 Hgb 12.8 gm/L (11.2-15.7) 08/10/16 05:41 Hct 40.0 % (34.1-44.9) 08/10/16 05:41 MCV 94.8 fl (79.4-94.8) 08/10/16 05:41 MCH 30.3 pg (25.6-32.2) 08/10/16 05:41 MCHC 32.0 g/dl (32.2-35.5) L 08/10/16 05:41 RDW Std Deviation 44.3 fL (36.4-46.3) 08/10/16 05:41 Plt Count 234 K/mm3 (182-369) 08/10/16 05:41 MPV 10.7 fl (9.4-12.3) 08/10/16 05:41 Neut % (Auto) 68.3 % (34.0-71.1) 08/10/16 05:41 Lymph % (Auto) 19.2 % (19.3-51.7) L 08/10/16 05:41 [place] % (Auto) 9.4 % (4.7-12.5) 08/10/16 05:41 Eos % (Auto) 2.0 (0.7-5.8) 08/10/16 05:41 Baso % (Auto) 0.6 % (0.1-1.2) 08/10/16 05:41 Neut # (Auto) 6.60 K/mm3 (1.56-6.13) H 08/10/16 05:41 Lymph # (Auto) 1.85 K/mm3 (1.18-3.74) 08/10/16 05:41 [place] # (Auto) 0.91 K/mm3 (0.24-0.36) H 08/10/16 05:41 Eos # (Auto) 0.19 K/mm3 (0.04-0.36) 08/10/16 05:41 Baso # (Auto) 0.06 K/mm3 (0.01-0.08) 08/10/16 05:41 Sodium 143 mEq/L (136-145) 08/10/16 05:41 Potassium 2.9 mEq/L (3.5-5.1) L 08/10/16 05:41 Chloride 109 mEq/L (98-107) H 08/10/16 05:41 Carbon Dioxide 26 mEq/L (21-32) 08/10/16 05:41 Anion Gap 10.9 (5-15) 08/10/16 05:41 BUN 8 mg/dL (7-18) 08/10/16 05:41 Creatinine 0.9 mg/dL (0.55-1.02) 08/10/16 05:41 Est Cr Clr Drug Dosing 41.40 mL/min 08/10/16 05:41 Estimated GFR (MDRD) > 60 mL/min (>60) 08/10/16 05:41 BUN/Creatinine Ratio 8.9 (14-18) L 08/10/16 05:41 Glucose 106 mg/dL (83-115) 08/10/16 05:41 POC Glucose 97 mg/dL (83-110) 08/07/16 14:58 Calcium 7.7 mg/dL (8.5-10.1) L 08/10/16 05:41 Magnesium 2.0 mg/dl (1.8-2.4) 08/10/16 05:41 Total Bilirubin 0.3 mg/dL (0.2-1.0) 08/07/16 11:28 AST 29 U/L (15-37) 08/07/16 11:28 ALT 33 U/L (14-59) 08/07/16 11:28 Alkaline Phosphatase 102 U/L (46-116) 08/07/16 11:28 C-Reactive Protein 6.7 mg/dL (<1.0) H* 08/08/16 07:54 Total Protein 7.9 g/dl (6.4-8.2) 08/07/16 11:28 Albumin 3.1 g/dl (3.4-5.0) L 08/07/16 11:28 Globulin 4.8 gm/dL 08/07/16 11:28 Albumin/Globulin Ratio 0.7 (1-2) L 08/07/16 11:28 - Allergies Allergies/Adverse Reactions: Allergies Allergy/AdvReac Type Severity Reaction Status Date / Time No Known Allergies Allergy Verified 08/07/16 17:09 - Blood Blood Available: No - Acknowledgements Anesthesia Type Planned: MAC Pt an Appropriate Candidate for the Planned Anesthesia: Yes Alternatives and Risks of Anesthesia Discussed w Pt/Guardian: Yes Pt/Guardian Understands and Agrees with Anesthesia Plan: Yes PreAnesthesia Questionnaire HEENT History: Reports: Impaired Vision Other HEENT History: wears glasses Cardiovascular History: Reports: High Cholesterol, Hypertension, PVD Respiratory History: Reports: COPD Gastrointestinal History: Reports: Chronic Constipation, Other (See Below) Other Gastrointestinal History: current abdominal hernia [employer] History: Reports: Musculoskeletal History: Reports: Osteoarthritis, Osteoporosis, RA Neurological History: Reports: Other (See Below) Other Neuro History: stroke - Past Surgical History Cardiovascular Surgical History: Reports: Vascular Surgery Other GI Surgeries/Procedures: hernia repair Musculoskeletal Surgical History: Reports: Hip Replacement - SUBSTANCE USE Smoking Status *Q: Former Smoker (not smoke since ) Tobacco Use Within Last Twelve Months: Cigarettes Second Hand Smoke Exposure: No Days Per Week of Alcohol Use: 7 (beer) Number of Drinks Per Day: 5 Total Drinks Per Week: 35 Recreational Drug Use History: No - HOME MEDS Home Medications: Home Meds Pentoxifylline [TRENtal] 400 mg PO TIDMEALS #90 tab.er 07/22/16 [Rx] Simvastatin [Zocor] 20 mg PO BEDTIME 07/22/16 [History] Cyclobenzaprine [Flexeril] 5 mg PO TID PRN 08/07/16 [History] Sulfamethoxazole/Trimethoprin (800/160mg) 1 tab PO BID 08/07/16 [History] Acetaminophen/HYDROcodone [[place] 325-5 MG] 1 tab PO Q6H PRN #30 tablet 08/09/16 [Rx] Aspirin [Ecotrin] 325 mg PO DAILY #30 tab.ec 08/09/16 [Rx] Docusate Sodium/Sennosides [Senna Plus] 1 tab PO BID #60 tablet 08/09/16 [Rx] Nicotine [Habitrol] 14 mg TRDERM DAILY #30 patch 08/09/16 [Rx] - CURRENT (IN HOUSE) MEDS Current Meds: Current Medications Hydrocodone Bitart/Acetaminophen ([place] 325-5 Mg) 1 tab PO Q6H PRN PRN Reason: pain in feet/toes Last Admin: 08/10/16 04:19 Dose: 1 tab Aspirin (Ecotrin) 325 mg PO DAILY [facility] Last Admin: 08/10/16 08:42 Dose: 325 mg Diazepam (Valium) 1 mg PO BID [facility] Last Admin: 08/10/16 08:41 Dose: 1 mg Enoxaparin Sodium (Lovenox) 30 mg SUBCUT DAILY [facility] Last Admin: 08/10/16 08:45 Dose: 30 mg Fentanyl (Duragesic) 12 mcg TRDERM Q72H [facility] Last Admin: 08/07/16 16:47 Dose: 12 mcg Metoclopramide HCl (Reglan) 10 mg IVPUSH TID [facility] Last Admin: 08/10/16 08:43 Dose: 10 mg Miscellaneous Information (Remove Patch) 1 ea TRDERM Q72H [facility] Last Admin: 08/07/16 17:44 Dose: Not Given Miscellaneous Information (Remove Patch) 0 ea TRDERM DAILY [facility] Last Admin: 08/10/16 08:43 Dose: Not Given Nicotine (Habitrol) 14 mg TRDERM DAILY [facility] Last Admin: 08/10/16 08:44 Dose: Not Given Ondansetron HCl (Zofran) 4 mg IVPUSH Q8H PRN PRN Reason: Nausea/Vomiting Pantoprazole Sodium (Protonix) 40 mg PO BIDAC [facility] Last Admin: 08/10/16 05:58 Dose: 40 mg Pentoxifylline (Trental) 400 mg PO TIDMEALS [facility] Last Admin: 08/10/16 06:00 Dose: 400 mg Potassium Chloride (Klor-Con M20) 20 meq PO TID [facility] Last Admin: 08/10/16 08:43 Dose: 20 meq Senna/Docusate Sodium (Senna Plus) 1 tab PO BID [facility] Last Admin: 08/10/16 08:42 Dose: 1 tab Simvastatin (Zocor) 20 mg PO BEDTIME [facility] Last Admin: 08/09/16 20:01 Dose: 20 mg Sodium Chloride (Saline Flush) 10 ml FLUSH ASDIRECTED PRN PRN Reason: Keep Vein Open Last Admin: 08/07/16 12:49 Dose: 10 ml Discontinued Medications Bisacodyl (Dulcolax) 10 mg RECTAL ONETIME ONE Stop: 08/08/16 09:40 Last Admin: 08/08/16 10:22 Dose: 10 mg Chlordiazepoxide HCl (Librium) 10 mg PO PREPRO ONE Stop: 08/09/16 14:31 Last Admin: 08/09/16 14:40 Dose: 10 mg Cyclobenzaprine HCl (Flexeril) 5 mg PO TID [facility] Diazepam (Valium) 2 mg PO BID [facility] Hydromorphone HCl (Dilaudid) 0.5 mg IVPUSH ONETIME ONE Stop: 08/07/16 12:59 Last Admin: 08/07/16 13:16 Dose: 0.5 mg Sodium Chloride (Normal Saline) 500 mls @ 999 mls/hr IV .BOLUS ONE Stop: 08/07/16 12:56 Last Admin: 08/07/16 12:47 Dose: 999 mls/hr Sodium Chloride (Normal Saline) 1,000 mls @ 75 mls/hr IV ASDIRECTED [facility] Lactated Ringer's (Ringers, Lactated) 1,000 mls @ 75 mls/hr IV ASDIRECTED [facility] Last Admin: 08/08/16 23:32 Dose: 75 mls/hr Magnesium Sulfate 2 gm/ Premix 50 mls @ 25 mls/hr IV ONETIME ONE Stop: 08/09/16 13:59 Last Admin: 08/09/16 12:16 Dose: 25 mls/hr Morphine Sulfate (Morphine) 1 mg IVPUSH Q4H PRN PRN Reason: Pain Last Admin: 08/08/16 05:19 Dose: 1 mg Morphine Sulfate (Morphine) 1 mg IVPUSH Q4H PRN PRN Reason: pain Last Admin: 08/09/16 12:17 Dose: 1 mg Ondansetron HCl (Zofran) 4 mg IVPUSH ONETIME ONE Stop: 08/07/16 12:56 Last Admin: 08/07/16 13:08 Dose: 4 mg Pentoxifylline (Trental) 400 mg PO TIDMEALS [facility] Pneumococcal 13-Valent Conj Vacc (Prevnar 13) 0.5 ml IM .ONCE ONE Stop: 08/07/16 18:27 Potassium Chloride (Klor-Con M20) 20 meq PO Q3H [facility] Stop: 08/09/16 15:01 Last Admin: 08/09/16 14:41 Dose: 20 meq Sodium Polystyrene Sulfonate (Kayexalate) 45 gm PO Q8H [facility] Last Admin: 08/09/16 08:39 Dose: Not Given
[2016-08-10] MEDS ORDERED: Potassium Chloride 20 MEQ Tab.ER PO ONE (14:10)
[2016-08-10] MEDS ORDERED: Polyethylene Glycol 3350 Powder 17 GM Packet PO SCH (14:15)
[2016-08-10] MEDS ORDERED: Magnesium Oxide 400 MG Tab PO SCH (14:15)
[2016-08-10] MEDS ORDERED: Diphtheria,Pertussis(Acell),Tetanus Vaccine 0.5 ML SDV inactive IM ONE (14:27)
--- NOTE | 2016-08-10 15:47 | PCM.DCSUM1 ---
<Lorna Tate T - Last Filed: 08/11/16 16:55> Discharge Summary - Discharge Data Discharge Disposition: Home, Self-Care 01 Condition: Good - Discharge Diagnosis/Problem(s) (1) Supraventricular tachycardia SNOMED Code(s): 95674033 ICD Code: E87.5 - HYPERKALEMIA Status: Acute (2) Foot pain, left SNOMED Code(s): 068806416 ICD Code: [id number] - Status: Acute Priority: High (3) Tachyarrhythmia SNOMED Code(s): 03986421 ICD Code: E87.6 - HYPOKALEMIA Status: Acute Priority: High (4) Atrial fibrillation with rapid ventricular response SNOMED Code(s): 191560553 ICD Code: R09.02 - HYPOXEMIA Status: Acute Priority: High (5) Hypomagnesemia SNOMED Code(s): 675196528 ICD Code: N28.9 - DISORDER OF KIDNEY AND URETER, UNSPECIFIED Status: Chronic Priority: Medium (6) Alcohol dependence SNOMED Code(s): 74046692, 993291828 ICD Code: R10.9 - UNSPECIFIED ABDOMINAL PAIN Status: Resolved Priority: High Qualifiers: Qualified Code(s): - (7) Hyperkalemia SNOMED Code(s): 98777344 ICD Code: K59.00 - CONSTIPATION, UNSPECIFIED Status: Resolved Priority: High Problem Details: recent narcotic use (8) Ventricular tachycardia SNOMED Code(s): 068540799, 34901765 ICD Code: E83.42 - HYPOMAGNESEMIA Status: Resolved Priority: High - Patient Summary/Data Consults: Consultations 08/08/16 08:00 Consult to Lead Press Operator [CONS] Routine 08/08/16 09:00 OT Evaluation and Treatment [CONS] Routine PT Evaluation and Treatment [CONS] Routine 08/08/16 09:41 Consult to Physician [CONS] Routine 08/10/16 11:58 Consult to Speech Language Pathology [BREAD PANNER Evaluation and Treatment] [CONS] Routine - Discharge Plan Prescriptions/Med Rec: Docusate Sodium/Sennosides [Senna Plus] 1 tab PO BID #60 tablet Nicotine [Habitrol] 14 mg TRDERM DAILY #30 patch Home Medications: Home Meds Naproxen Sodium [Aleve] 220 mg PO BID PRN 08/22/14 [History] Simvastatin [Zocor] 20 mg PO BEDTIME 07/22/16 [History] Cyclobenzaprine [Flexeril] 5 mg PO TID PRN 08/07/16 [History] Acetaminophen/HYDROcodone [[employer] 325-5 MG] 1 tab PO Q6H PRN #10 tablet 08/10/16 [Rx] Docusate Sodium/Sennosides [Senna Plus] 1 tab PO BID #60 tablet 08/10/16 [Rx] Nicotine [Habitrol] 14 mg TRDERM DAILY #30 patch 08/10/16 [Rx] Polyethylene Glycol 3350 [MiraLAX] 17 gm PO DAILY packet 08/10/16 [Rx] Amiodarone [Cordarone] 200 mg PO DAILY@0900 #30 tablet 08/13/16 [Rx] Apixaban [Eliquis] 5 mg PO BID #60 tablet 08/13/16 [Rx] Magnesium Oxide 400 mg PO DAILY #15 tablet 08/13/16 [Rx] Metoprolol Tartrate [Lopressor] 25 mg PO Q12HR #60 tablet 08/13/16 [Rx] Patient Handouts: Hypomagnesemia, Hypokalemia, Spinal Compression Fracture Referrals: Raudel Herrera MD [Physician] - PCP,Not In Area [Primary Care Provider] - - Discharge Summary/Plan Comment DC Time >30 min.: Yes Discharge Summary/Plan Comment: Discharge to Home - General Info Date of Service: 08/11/16 Admission Dx/Problem (Free Text: Admission Diagnosis/Problem Admission Diagnosis/Problem Hyperkalemia Patient seen this morning; resting in bed. Pain is somewhat controlled/improved control today. Has been working with PT/OT. Bowels are moving. Oxygen saturations were low on RA most of the day yesterday and overnight down to 81% on room air. She will likely need home O2 at time of discharge. Plans for DC likely tomorrow based on pain control and electrolyte status. Subjective Update: Follow Up Functional Status: Reports: pain controlled, tolerating diet, urinating. Denies : new symptoms - Review of Systems General: Reports: Weakness. Denies: Fever, Chills HEENT: Reports: no symptoms Pulmonary: Denies: shortness of breath Cardiovascular: Denies: Chest Pain Gastrointestinal: Denies: Abdominal pain, Nausea, Vomiting Genitourinary: Reports: no symptoms Musculoskeletal: Reports: back pain Skin: Denies: cyanosis, pallor, rash Neurological: Reports: Weakness. Denies: Confusion Psychiatric: Denies: depression, mood lability, anxiety, agitation, cravings, hallucinations Systems Review Comment: No overnight or acute issues. She is doing relatively well. She is ready for discharge. - Patient Data Vitals - Most Recent: Last Vital Signs Temp 36.8 C 08/11/16 00:36 Pulse 93 08/11/16 00:36 Resp 16 08/11/16 00:36 BP 145/73 H 08/11/16 00:36 Pulse Ox 96 08/11/16 00:36 I&O - Last 24 hours: Intake & Output 08/11/16 08/11/16 08/11/16 06:59 14:59 22:59 Intake Total 400 Output Total 700 Balance -300 Lab Results - Last 24 hrs: Laboratory Results - last 24 hr 08/10/16 08/10/16 08/11/16 Range/Units 16:55 19:10 05:20 WBC 10.54 H (3.98-10.04) K/mm3 RBC 4.39 (3.98-5.22) M/mm3 Hgb 13.7 (11.2-15.7) gm/L Hct 41.5 (34.1-44.9) % MCV 94.5 (79.4-94.8) fl MCH 31.2 (25.6-32.2) pg MCHC 33.0 (32.2-35.5) g/dl RDW Std Deviation 44.6 (36.4-46.3) fL Plt Count 242 (182-369) K/mm3 MPV 10.5 (9.4-12.3) fl Neut % (Auto) 66.9 (34.0-71.1) % Lymph % (Auto) 19.6 (19.3-51.7) % Avery % (Auto) 9.2 (4.7-12.5) % Eos % (Auto) 3.0 (0.7-5.8) Baso % (Auto) 0.6 (0.1-1.2) % Neut # (Auto) 7.05 H (1.56-6.13) K/mm3 Lymph # (Auto) 2.07 (1.18-3.74) K/mm3 Avery # (Auto) 0.97 H (0.24-0.36) K/mm3 Eos # (Auto) 0.32 (0.04-0.36) K/mm3 Baso # (Auto) 0.06 (0.01-0.08) K/mm3 Sodium (136-145) mEq/L Potassium 3.5 (3.5-5.1) mEq/L Chloride (98-107) mEq/L Carbon Dioxide (21-32) mEq/L Anion Gap (5-15) BUN (7-18) mg/dL Creatinine (0.55-1.02) mg/dL Est Cr Clr Drug Dosing mL/min Estimated GFR (MDRD) (>60) mL/min BUN/Creatinine Ratio (14-18) Glucose (83-115) mg/dL Calcium (8.5-10.1) mg/dL Magnesium 1.8 (1.8-2.4) mg/dl MRSA (PCR) Negative 08/11/16 Range/Units 05:20 WBC (3.98-10.04) K/mm3 RBC (3.98-5.22) M/mm3 Hgb (11.2-15.7) gm/L Hct (34.1-44.9) % MCV (79.4-94.8) fl MCH (25.6-32.2) pg MCHC (32.2-35.5) g/dl RDW Std Deviation (36.4-46.3) fL Plt Count (182-369) K/mm3 MPV (9.4-12.3) fl Neut % (Auto) (34.0-71.1) % Lymph % (Auto) (19.3-51.7) % Avery % (Auto) (4.7-12.5) % Eos % (Auto) (0.7-5.8) Baso % (Auto) (0.1-1.2) % Neut # (Auto) (1.56-6.13) K/mm3 Lymph # (Auto) (1.18-3.74) K/mm3 Avery # (Auto) (0.24-0.36) K/mm3 Eos # (Auto) (0.04-0.36) K/mm3 Baso # (Auto) (0.01-0.08) K/mm3 Sodium 144 (136-145) mEq/L Potassium 3.9 (3.5-5.1) mEq/L Chloride 109 H (98-107) mEq/L Carbon Dioxide 26 (21-32) mEq/L Anion Gap 12.9 (5-15) BUN 6 L (7-18) mg/dL Creatinine 0.8 (0.55-1.02) mg/dL Est Cr Clr Drug Dosing 46.58 mL/min Estimated GFR (MDRD) > 60 (>60) mL/min BUN/Creatinine Ratio 7.5 L (14-18) Glucose 92 (83-115) mg/dL Calcium 8.0 L (8.5-10.1) mg/dL Magnesium 1.7 L (1.8-2.4) mg/dl MRSA (PCR) Med Orders - Current: Current Medications Discontinued Medications Hydrocodone Bitart/Acetaminophen ([employer] 325-5 Mg) 1 tab PO Q6H PRN PRN Reason: pain in feet/toes Last Admin: 08/11/16 04:08 Dose: 1 tab Aspirin (Ecotrin) 325 mg PO DAILY [facility] Last Admin: 08/10/16 08:42 Dose: 325 mg Aspirin (Aspirin) 81 mg PO DAILY [facility] Bisacodyl (Dulcolax) 10 mg RECTAL ONETIME ONE Stop: 08/08/16 09:40 Last Admin: 08/08/16 10:22 Dose: 10 mg Chlordiazepoxide HCl (Librium) 10 mg PO PREPRO ONE Stop: 08/09/16 14:31 Last Admin: 08/09/16 14:40 Dose: 10 mg Cyclobenzaprine HCl (Flexeril) 5 mg PO TID [facility] Diazepam (Valium) 2 mg PO BID [facility] Diazepam (Valium) 1 mg PO BID [facility] Last Admin: 08/10/16 20:38 Dose: 1 mg Diphtheria/Tetanus/Acell Pertussis (Boostrix) 0.5 ml IM .ONCE ONE Stop: 08/10/16 14:28 Last Admin: 08/10/16 14:33 Dose: 0.5 ml Enoxaparin Sodium (Lovenox) 30 mg SUBCUT DAILY [facility] Last Admin: 08/10/16 08:45 Dose: 30 mg Fentanyl (Duragesic) 12 mcg TRDERM Q72H [facility] Last Admin: 08/10/16 16:59 Dose: 12 mcg Hydromorphone HCl (Dilaudid) 0.5 mg IVPUSH ONETIME ONE Stop: 08/07/16 12:59 Last Admin: 08/07/16 13:16 Dose: 0.5 mg Sodium Chloride (Normal Saline) 500 mls @ 999 mls/hr IV .BOLUS ONE Stop: 08/07/16 12:56 Last Admin: 08/07/16 12:47 Dose: 999 mls/hr Sodium Chloride (Normal Saline) 1,000 mls @ 75 mls/hr IV ASDIRECTED [facility] Lactated Ringer's (Ringers, Lactated) 1,000 mls @ 75 mls/hr IV ASDIRECTED [facility] Last Admin: 08/08/16 23:32 Dose: 75 mls/hr Magnesium Sulfate 2 gm/ Premix 50 mls @ 25 mls/hr IV ONETIME ONE Stop: 08/09/16 13:59 Last Admin: 08/09/16 12:16 Dose: 25 mls/hr Magnesium Oxide (Magnesium Oxide) 400 mg PO DAILY [facility] Last Admin: 08/10/16 14:26 Dose: 400 mg Metoclopramide HCl (Reglan) 10 mg IVPUSH TID [facility] Last Admin: 08/10/16 08:43 Dose: 10 mg Miscellaneous Information (Remove Patch) 1 ea TRDERM Q72H [facility] Last Admin: 08/10/16 17:01 Dose: Not Given Miscellaneous Information (Remove Patch) 0 ea TRDERM DAILY [facility] Last Admin: 08/10/16 08:43 Dose: Not Given Morphine Sulfate (Morphine) 1 mg IVPUSH Q4H PRN PRN Reason: Pain Last Admin: 08/08/16 05:19 Dose: 1 mg Morphine Sulfate (Morphine) 1 mg IVPUSH Q4H PRN PRN Reason: pain Last Admin: 08/09/16 12:17 Dose: 1 mg Nicotine (Habitrol) 14 mg TRDERM DAILY [facility] Last Admin: 08/10/16 08:44 Dose: Not Given Ondansetron HCl (Zofran) 4 mg IVPUSH ONETIME ONE Stop: 08/07/16 12:56 Last Admin: 08/07/16 13:08 Dose: 4 mg Ondansetron HCl (Zofran) 4 mg IVPUSH Q8H PRN PRN Reason: Nausea/Vomiting Pantoprazole Sodium (Protonix) 40 mg PO BIDAC [facility] Last Admin: 08/11/16 06:41 Dose: Not Given Pentoxifylline (Trental) 400 mg PO TIDMEALS [facility] Pentoxifylline (Trental) 400 mg PO TIDMEALS [facility] Last Admin: 08/11/16 06:41 Dose: Not Given Pneumococcal 13-Valent Conj Vacc (Prevnar 13) 0.5 ml IM .ONCE ONE Stop: 08/07/16 18:27 Last Admin: 08/10/16 14:29 Dose: 0.5 ml Polyethylene Glycol (Miralax) 17 gm PO DAILY [facility] Last Admin: 08/10/16 14:26 Dose: 17 gm Potassium Chloride (Klor-Con M20) 20 meq PO Q3H [facility] Stop: 08/09/16 15:01 Last Admin: 08/09/16 14:41 Dose: 20 meq Potassium Chloride (Klor-Con M20) 20 meq PO TID [facility] Last Admin: 08/10/16 20:37 Dose: 20 meq Potassium Chloride (Klor-Con M20) 40 meq PO ONETIME ONE Stop: 08/10/16 14:11 Last Admin: 08/10/16 14:24 Dose: 40 meq Senna/Docusate Sodium (Senna Plus) 1 tab PO BID [facility] Last Admin: 08/10/16 20:37 Dose: 1 tab Simvastatin (Zocor) 20 mg PO BEDTIME [facility] Last Admin: 08/10/16 20:37 Dose: 20 mg Sodium Chloride (Saline Flush) 10 ml FLUSH ASDIRECTED PRN PRN Reason: Keep Vein Open Last Admin: 08/07/16 12:49 Dose: 10 ml Sodium Polystyrene Sulfonate (Kayexalate) 45 gm PO Q8H [facility] Last Admin: 08/09/16 08:39 Dose: Not Given - Exam General: Reports: alert, oriented, cooperative, no acute distress HEENT: Reports: Pupils equal, Pupils reactive, EOMI, Mucous membr. moist/pink Neck: Reports: supple Lungs: Reports: Clear to auscultation, Normal respiratory effort, Decreased breath sounds Cardiovascular: Reports: Regular Rate, Regular Rhythm Abdomen: Reports: bowel sounds present, soft, no tenderness, no distension (Female) Exam: Deferred Rectal (Female) Exam: Deferred Back Exam: Reports: Decreased Range of Motion, Vertebral Tenderness Extremities: Reports: no edema, normal pulses, no tenderness/swelling, no cyanosis Skin: Reports: warm, dry, intact Neurological: Reports: no new focal deficit Psy/Mental Status: Reports: alert, normal affect, normal mood *Q Meaningful Use (DIS) - VTE *Q VTE Criteria *Q: - Stroke *Q Stroke Criteria *Q: - AMI *Q AMI Criteria *Q: <Shannon Kimble M - Last Filed: 08/15/16 06:21> Discharge Summary - Hospital Course Free Text/Narrative:: 75 year old female with multiple compression fractures developed decrease appetite and nausea after starting [employer]. She was scheduled for MRI and an ortho consult for 08/08/16. Additionally she has had abdominal discomfort. Hospitalist is consulted for admission for abdominal and back pain, hyperkalemia and ARF. She is admitted to [facility] telemetry. She was initially hydrated with IVF, given PO kayexalate which resolved hyperkalemia. Renal function resolved to suspected baseline. She became hypokalemic and was then supplemented with PO magnesium and PO potassium with resolution of electrolyte abnormalities. Bowel regimen was started with good results. Orthopedics, Dr. Herrera was consulted for LBP with compression fx. MRI was obtained showing acute fracture. She was treated with pain medications with good relief. She will be discharged with scheduled ouptatient kyphoplasty procedure scheduled with Dr. Herrera. - Discharge Data Discharge Date: 08/11/16 (admit date 08/07/16) - Discharge Diagnosis/Problem(s) (1) Hyperkalemia SNOMED Code(s): 76117292 Status: Acute (2) Alcohol dependence SNOMED Code(s): 78260439, 740306419 ICD Code: F10.20 - ALCOHOL DEPENDENCE, UNCOMPLICATED Status: Acute (3) Foot pain, left SNOMED Code(s): 15607008 Status: Acute (4) Escherichia coli urinary tract infection SNOMED Code(s): 582313826 ICD Code: N39.0 - URINARY TRACT INFECTION, SITE NOT SPECIFIED; B96.20 - UNSP ESCHERICHIA COLI THE CA[facility]ASES [facility] Status: Acute (5) Hypomagnesemia SNOMED Code(s): 514672076 Status: Resolved Priority: High (6) Tachyarrhythmia SNOMED Code(s): 6973995 Status: Resolved (7) Ventricular tachycardia SNOMED Code(s): 62112024, 21400234 Status: Resolved (8) Atrial fibrillation with rapid ventricular response SNOMED Code(s): 966712838041889 Status: Resolved - Patient Summary/Data Operative Procedure(s) Performed: None Complications: None Consults: Consultations 08/08/16 08:00 Consult to Lead Press Operator [CONS] Routine 08/08/16 09:00 OT Evaluation and Treatment [CONS] Routine PT Evaluation and Treatment [CONS] Routine 08/08/16 09:41 Consult to Physician [CONS] Routine 08/10/16 11:58 Consult to Speech Language Pathology [BREAD PANNER Evaluation and Treatment] [CONS] Routine Labs Pending at D/C: None Recommended Follow-up Testing/Procedures: Follow up with Primary Care Provider within one week of discharge; recommend labs at that time, BMP and mag levels Follow up with Dr. Herrera as scheduled after procedure Home Health Care nursing and PT Home oxygen at [address] [place] [address]; follow up with PCP within a week of DC to recheck. Planned Operative Procedure(s) after DC: Kyphoplasty of compression fx per Dr. Herrera [facility] Course: As above - Patient Instructions Diet: Heart Healthy Diet Activity: As Tolerated (No lifting, pushing, pulling, carrying) Driving: Do Not Drive Showering/Bathing: May Shower Notify Provider of: Fever, Increased Pain, Nausea and/or Vomiting - Discharge Summary/Plan Comment DC Time >30 min.: Yes (40 min) - Patient Data Vitals - Most Recent: Last Vital Signs Temp 97.9 F 08/10/16 15:38 Pulse 78 08/10/16 15:38 Resp 20 08/10/16 15:38 BP 145/66 H 08/10/16 15:38 Pulse Ox 98 08/10/16 15:38 Weight - Most Recent: 126 lb 12.8 oz I&O - Last 24 hours: Intake & Output 08/10/16 08/10/16 08/10/16 06:59 14:59 22:59 Intake Total 200 420 700 Output Total 700 Balance 200 420 0 Lab Results - Last 24 hrs: Laboratory Results - last 24 hr 08/10/16 08/10/16 Range/Units 05:41 05:41 WBC 9.66 (3.98-10.04) K/mm3 RBC 4.22 (3.98-5.22) M/mm3 Hgb 12.8 (11.2-15.7) gm/L Hct 40.0 (34.1-44.9) % MCV 94.8 (79.4-94.8) fl MCH 30.3 (25.6-32.2) pg MCHC 32.0 L (32.2-35.5) g/dl RDW Std Deviation 44.3 (36.4-46.3) fL Plt Count 234 (182-369) K/mm3 MPV 10.7 (9.4-12.3) fl Neut % (Auto) 68.3 (34.0-71.1) % Lymph % (Auto) 19.2 L (19.3-51.7) % Avery % (Auto) 9.4 (4.7-12.5) % Eos % (Auto) 2.0 (0.7-5.8) Baso % (Auto) 0.6 (0.1-1.2) % Neut # (Auto) 6.60 H (1.56-6.13) K/mm3 Lymph # (Auto) 1.85 (1.18-3.74) K/mm3 Avery # (Auto) 0.91 H (0.24-0.36) K/mm3 Eos # (Auto) 0.19 (0.04-0.36) K/mm3 Baso # (Auto) 0.06 (0.01-0.08) K/mm3 Sodium 143 (136-145) mEq/L Potassium 2.9 L (3.5-5.1) mEq/L Chloride 109 H (98-107) mEq/L Carbon Dioxide 26 (21-32) mEq/L Anion Gap 10.9 (5-15) BUN 8 (7-18) mg/dL Creatinine 0.9 (0.55-1.02) mg/dL Est Cr Clr Drug Dosing 41.40 mL/min Estimated GFR (MDRD) > 60 (>60) mL/min BUN/Creatinine Ratio 8.9 L (14-18) Glucose 106 (83-115) mg/dL Calcium 7.7 L (8.5-10.1) mg/dL Magnesium 2.0 (1.8-2.4) mg/dl Med Orders - Current: Current Medications Hydrocodone Bitart/Acetaminophen ([employer] 325-5 Mg) 1 tab PO Q6H PRN PRN Reason: pain in feet/toes Last Admin: 08/10/16 04:19 Dose: 1 tab Aspirin (Aspirin) 81 mg PO DAILY [facility] Diazepam (Valium) 1 mg PO BID [facility] Last Admin: 08/10/16 08:41 Dose: 1 mg Fentanyl (Duragesic) 12 mcg TRDERM Q72H [facility] Last Admin: 08/07/16 16:47 Dose: 12 mcg Magnesium Oxide (Magnesium Oxide) 400 mg PO DAILY [facility] Last Admin: 08/10/16 14:26 Dose: 400 mg Miscellaneous Information (Remove Patch) 1 ea TRDERM Q72H [facility] Last Admin: 08/07/16 17:44 Dose: Not Given Miscellaneous Information (Remove Patch) 0 ea TRDERM DAILY [facility] Last Admin: 08/10/16 08:43 Dose: Not Given Nicotine (Habitrol) 14 mg TRDERM DAILY [facility] Last Admin: 08/10/16 08:44 Dose: Not Given Ondansetron HCl (Zofran) 4 mg IVPUSH Q8H PRN PRN Reason: Nausea/Vomiting Pantoprazole Sodium (Protonix) 40 mg PO BIDAC [facility] Last Admin: 08/10/16 05:58 Dose: 40 mg Pentoxifylline (Trental) 400 mg PO TIDMEALS [facility] Last Admin: 08/10/16 11:05 Dose: 400 mg Polyethylene Glycol (Miralax) 17 gm PO DAILY [facility] Last Admin: 08/10/16 14:26 Dose: 17 gm Potassium Chloride (Klor-Con M20) 20 meq PO TID [facility] Last Admin: 08/10/16 14:25 Dose: 20 meq Senna/Docusate Sodium (Senna Plus) 1 tab PO BID [facility] Last Admin: 08/10/16 08:42 Dose: 1 tab Simvastatin (Zocor) 20 mg PO BEDTIME [facility] Last Admin: 08/09/16 20:01 Dose: 20 mg Sodium Chloride (Saline Flush) 10 ml FLUSH ASDIRECTED PRN PRN Reason: Keep Vein Open Last Admin: 08/07/16 12:49 Dose: 10 ml Discontinued Medications Aspirin (Ecotrin) 325 mg PO DAILY [facility] Last Admin: 08/10/16 08:42 Dose: 325 mg Bisacodyl (Dulcolax) 10 mg RECTAL ONETIME ONE Stop: 08/08/16 09:40 Last Admin: 08/08/16 10:22 Dose: 10 mg Chlordiazepoxide HCl (Librium) 10 mg PO PREPRO ONE Stop: 08/09/16 14:31 Last Admin: 08/09/16 14:40 Dose: 10 mg Cyclobenzaprine HCl (Flexeril) 5 mg PO TID [facility] Diazepam (Valium) 2 mg PO BID [facility] Diphtheria/Tetanus/Acell Pertussis (Boostrix) 0.5 ml IM .ONCE ONE Stop: 08/10/16 14:28 Last Admin: 08/10/16 14:33 Dose: 0.5 ml Enoxaparin Sodium (Lovenox) 30 mg SUBCUT DAILY [facility] Last Admin: 08/10/16 08:45 Dose: 30 mg Hydromorphone HCl (Dilaudid) 0.5 mg IVPUSH ONETIME ONE Stop: 08/07/16 12:59 Last Admin: 08/07/16 13:16 Dose: 0.5 mg Sodium Chloride (Normal Saline) 500 mls @ 999 mls/hr IV .BOLUS ONE Stop: 08/07/16 12:56 Last Admin: 08/07/16 12:47 Dose: 999 mls/hr Sodium Chloride (Normal Saline) 1,000 mls @ 75 mls/hr IV ASDIRECTED [facility] Lactated Ringer's (Ringers, Lactated) 1,000 mls @ 75 mls/hr IV ASDIRECTED [facility] Last Admin: 08/08/16 23:32 Dose: 75 mls/hr Magnesium Sulfate 2 gm/ Premix 50 mls @ 25 mls/hr IV ONETIME ONE Stop: 08/09/16 13:59 Last Admin: 08/09/16 12:16 Dose: 25 mls/hr Metoclopramide HCl (Reglan) 10 mg IVPUSH TID [facility] Last Admin: 08/10/16 08:43 Dose: 10 mg Morphine Sulfate (Morphine) 1 mg IVPUSH Q4H PRN PRN Reason: Pain Last Admin: 08/08/16 05:19 Dose: 1 mg Morphine Sulfate (Morphine) 1 mg IVPUSH Q4H PRN PRN Reason: pain Last Admin: 08/09/16 12:17 Dose: 1 mg Ondansetron HCl (Zofran) 4 mg IVPUSH ONETIME ONE Stop: 08/07/16 12:56 Last Admin: 08/07/16 13:08 Dose: 4 mg Pentoxifylline (Trental) 400 mg PO TIDMEALS [facility] Pneumococcal 13-Valent Conj Vacc (Prevnar 13) 0.5 ml IM .ONCE ONE Stop: 08/07/16 18:27 Last Admin: 08/10/16 14:29 Dose: 0.5 ml Potassium Chloride (Klor-Con M20) 20 meq PO Q3H [facility] Stop: 08/09/16 15:01 Last Admin: 08/09/16 14:41 Dose: 20 meq Potassium Chloride (Klor-Con M20) 40 meq PO ONETIME ONE Stop: 08/10/16 14:11 Last Admin: 08/10/16 14:24 Dose: 40 meq Sodium Polystyrene Sulfonate (Kayexalate) 45 gm PO Q8H [facility] Last Admin: 08/09/16 08:39 Dose: Not Given *Q Meaningful Use (DIS) - VTE *Q VTE Criteria *Q: - Stroke *Q Stroke Criteria *Q: - AMI *Q AMI Criteria *Q:
[2016-08-10] MEDS: fentaNYL 12 MCG/HR Transdermal Patch TRDERM SCH (16:59)
[2016-08-10] MEDS: REMOVE FENTANYL TRDERM SCH (17:01)
[2016-08-10] MEDS: Simvastatin 20 MG Tab PO SCH (20:37)
[2016-08-11 01:06] VITALS: BP 145/73
[2016-08-11] MEDS: Acetaminophen/HYDROcodone 325-5 MG Tab PO PRN (04:08)
--- NOTE | 2016-08-11 05:04 | PCM.SN ---
- Free Text/Narrative Note: Patient seen and examined at bedside. She is relatively stable. She has no new complaints.
[2016-08-11] MEDS: Pentoxifylline 400 MG Tab.ER PO SCH (06:41)
[2016-08-11] MEDS: Pantoprazole 40 MG Tab.CR PO SCH (06:41)
[2016-08-11] MEDS ORDERED: Aspirin 81 MG Tab.Chew PO SCH (09:00)
--- NOTE | 2016-08-11 10:42 | CONS ---
CONSULTING PHYSICIAN: Raudel Herrera MD DATE OF CONSULTATION: 08/10/2016 HISTORY OF PRESENT ILLNESS: The patient reevaluated in her room in the hospital for continued severe lumbar spine pain. The patient underwent a MRI evaluation on August 09, 2016, which shows acute compression fracture of L1. There is a central fluid formation of accumulated blood as a result of the fracture and also a disconnect between the anterior and posterior portion of the vertebral body on the MRI. The patient currently is on high doses of pain medicines for control of the pain reaction. She has had no help with the current treatment program. Symptoms have been going on for approximately 4 to 6 weeks. The patient functionally is essentially bed-bound with only minimal activity to the bathroom still causing severe pain. Her pain scale with activity is 9 to 10 and her resting pain scale is 3 to 4. The functional activity loss is greater than 90%. PHYSICAL EXAMINATION: The patient has severe pain. Direct pressure palpation over the thoracolumbar junction, paravertebral muscle spasm noted. RADIOLOGY: Review of the MRI evaluation on August 09, 2016, shows acute edema involving the L1 vertebral body with compression fracture changes. There was a large central nidus of fluid accumulation indicative of a hollow area and disconnect between the anterior and posterior portions of the vertebral body. IMPRESSION: Acute osteoporotic compression fracture, L1. PLAN: I discussed with the hospitalist along with the nurse practitioner for a treatment program. This would involve a kyphoplasty fracture stabilization. Went over the procedure with the family, and the patient and we will schedule her for kyphoplasty fracture stabilization of the L1 vertebral body. MELY /[id number]
== END 2016-08-11 06:50 | disposition home or self-care (01) | DRG 641 ==
LOC: JD.ED 10:15 → JD.MS 14:51 → UNDOADMIN 14:51 → MERGE 14:51 → JD.MS 15:39 → UNDODISIN 08-11 06:50
PROVIDERS: ADMIT Internal Medicine Cardiovascular Disease; ATTEND Internal Medicine Cardiovascular Disease
PROC: 3E0234Z Introduction of Serum, Toxoid and Vaccine into Muscle, Percutaneous Approach (ICD-10-PCS; principal; 2016-08-10)
DX: E87.5 Hyperkalemia (principal); N17.9 Acute kidney failure, unspecified; E86.0 Dehydration; M80.88XD Other osteoporosis with current pathological fracture, vertebra(e), subsequent encounter for fracture with routine healing; R10.84 Generalized abdominal pain; M48.56XD Collapsed vertebra, not elsewhere classified, lumbar region, subsequent encounter for fracture with routine healing; K59.03 Drug induced constipation; E87.6 Hypokalemia; E83.42 Hypomagnesemia; R09.02 Hypoxemia; Z79.82 Long term (current) use of aspirin; J44.9 Chronic obstructive pulmonary disease, unspecified; M19.90 Unspecified osteoarthritis, unspecified site; I10 Essential (primary) hypertension; I73.9 Peripheral vascular disease, unspecified; E78.5 Hyperlipidemia, unspecified; Z23 Encounter for immunization; Z79.899 Other long term (current) drug therapy
CPT/HCPCS: 36415; 74020; 80053; 84132; 85025; 96361; 96374; 96375; 99285; J1170; J2405; J7040; J7050; 72100; 72100-26; 72148; 72148-26; 72170; 72170-26; 80048; 82962; 83735; 86140; 87641; 90471; 90670; 90715; 93005; 94761; 97110-GO; 97110-GP; 97162-GP; 97166-GO; 97530-GO; 97530-GP; 99222; 99232; 99239; 99284; A9270-GY; G0009; J1650; J2270; J2765; J3475; J7120

== ENCOUNTER 2016-08-11 06:56 | Day surgery (SDC) | payer MEDICARE, MEDICAID ==
[2016-08-11] MEDS ORDERED: Iopamidol 612 MG/ML 50 ML SDV ONE (07:13)
[2016-08-11] MEDS ORDERED: Lidocaine 1% with EPINEPHrine 1:100,000 20 ML MDV ONE (07:13)
[2016-08-11] MEDS ORDERED: Vancomycin 1 GM SDV ONE (07:13)
[2016-08-11] MEDS ORDERED: Propofol 200 MG/20 ML SDV ONE (07:22)
[2016-08-11] MEDS ORDERED: Lidocaine 1% 4 ML ONE (07:25)
[2016-08-11] MEDS ORDERED: Midazolam 1 MG/ML 2 ML SDV ONE (07:25)
[2016-08-11] MEDS ORDERED: fentaNYL 100 MCG/2 ML SDV ONE (07:25)
[2016-08-11] MEDS ORDERED: Ketamine 500 mg/10 ML MDV ONE (07:27)
[2016-08-11] MEDS ORDERED: Cyclobenzaprine 10 MG Tab PO PRN (07:43)
[2016-08-11] MEDS ORDERED: Ketorolac 15 MG/ML SDV IVPUSH PRN (07:43)
[2016-08-11] MEDS ORDERED: Ondansetron 4 MG/2 ML SDV IVPUSH PRN ×2 (07:43→09:17)
[2016-08-11] MEDS ORDERED: Acetaminophen/HYDROcodone 325-5 MG Tab PO PRN (07:43)
[2016-08-11] MEDS ORDERED: Lidocaine 1%/Sod Bicarbonate in NS 8.4% 1 ML Syringe PRN (07:56)
[2016-08-11] MEDS ORDERED: Sodium Chloride 0.9% 10 ML Syringe FLUSH PRN (07:56)
[2016-08-11] MEDS ORDERED: Lactated Ringers 1,000 ML IV SCH (08:00)
--- NOTE | 2016-08-11 09:16 | PCM.POSTAN ---
POST ANESTHESIA ASSESSMENT - MENTAL STATUS Mental Status: alert, oriented - VITAL SIGNS Pulse Rate: 107 SaO2: 97 Resp Rate: 26 Blood Pressure: 117/53 Temperature: 36.1 C - RESPIRATORY Respiratory Status: respiratory rate WNL, airway patent, O2 saturation stable - CARDIOVASCULAR CV Status: pulse rate WNL, blood pressure stable - GASTROINTESTINAL GI Status: no symptoms - PAIN Pain Score: 0 - POST OP HYDRATION Hydration Status: adequate & stable
--- NOTE | 2016-08-11 10:07 | PCM.SN ---
- Free Text/Narrative Note: Intraop rhythm changes 08-11-16 Patient went into atrial fibrillation (HR 135-140) during her kyphoplasty. The rhythm lasted approximately 8 minutes ([id number]) until she was converted back to a sinus rhythm after 40mg of Esmolol (50mg total given). The patient tolerated the procedure well and did not have any significant blood pressure decreases. An EKG was obtained in recovery immediately after the procedure showing a sinus tachycardia 103. Yesterdays EKG and todays recovery EKG were both shown to Dr. Tate and he stated there was no change. I discussed with him that the patient was in afib intoaop for approximately 8min and is now in a SR. The patient is also not an inpatient and will be discharged home later today. Dr Tate stated if the patient in now in a SR and remains in a SR then she would be still OK to go home today. The patient is currently in a SR (HR90s ). Family has been updated that the patient will more than likely be discharged today. Will continue to monitor. Jhony Vargas [employer]
[2016-08-11] MEDS ORDERED: fentaNYL 100 MCG/2 ML SDV IVPUSH PRN (10:15)
--- NOTE | 2016-08-11 10:32 | CR ---
Lumbar spine: Multiple fluoroscopic spot views were obtained utilizing C-arm device. Study shows vertebroplasty procedure within L1. Fluoroscopy time given as 511.4 seconds. Impression: 1. Findings as noted above. Diagnostic code #2
--- NOTE | 2016-08-11 11:03 | HP ---
DATE OF ADMISSION: 08/11/2016 HISTORY OF PRESENT ILLNESS: This is the first orthopedic outpatient admission for surgery for this 75-year- old female who is being admitted with severe lumbar spine pain as a result of an osteoporotic compression fracture. The patient suffered this injury approximately 4 to 6 weeks ago, has been on a conservative care program, recently admitted to the hospital, placed on pain medicines, had recent MRI which identified an acute compression fracture of L1 with an unstable fracture that was comminuted. The patient failed to have any response to the conservative treatment with pain medicines. Functionally, the patient is less than 10% of her normal activity, is almost entirely bed-bound, except for ability with support to go to the bathroom. The pain is at a pain scale of 10 with activity and even with control of large amounts of pain medicine. The MRI revealed the positive acute fracture of L1. She also has several other fractures as a result of osteoporosis, which were not acute, but the L1 compression fracture will be addressed today through outpatient surgery or kyphoplasty. Procedure had been outlined to the patient, and the family. They understand the procedure and have consented to it. ALLERGIES: No known drug allergies. PAST MEDICAL HISTORY: The patient has a history of osteoporosis along with hypokalemia and occasionally some blood pressure changes. PAST SURGICAL HISTORY: Positive. She has had previous hip surgery in the past with fractured hips requiring a hemiprosthesis. Notes no complications from the anesthesia. CURRENT MEDICATIONS: Her current medications include simvastatin and potassium. She also is on magnesium and multivitamins. She has been on an outpatient pain medicine of hydrocodone. REVIEW OF SYSTEMS: The patient is a smoker. The patient denies any previous history of any bleeding-type abnormalities or problems. Has negative blood clot problem in the past. PHYSICAL EXAMINATION: GENERAL: A very frail 75-year-old female in severe distress. HEAD, EYES, EARS, NOSE, AND THROAT: Normocephalic. NECK: Supple. CHEST: Clear. COR: Regular rate. ABDOMEN: Soft. : Intact. MUSCULOSKELETAL: Examination of the lumbar spine reveals severe pain on direct pressure palpation and percussion over the thoracolumbar junction area with positive paravertebral muscle spasm. The nerve tension signs were negative. RADIOLOGY: MRI reveals an acute compression fracture of L1 with displacement and central body fracture with a large hematoma formation. ASSESSMENT: Acute osteoporotic compression fracture, L1, with intractable pain, failed treatment. PLAN: Plan is for the patient undergo kyphoplasty fracture stabilization of L1. MELY /[id number]
--- NOTE | 2016-08-11 11:44 | OR ---
DATE OF OPERATION: 08/11/2016 SURGEON: Raudel Herrera MD PREOPERATIVE DIAGNOSIS: Acute osteoporotic compression fracture, L1, with intractable pain, unstable. POSTOPERATIVE DIAGNOSIS: Acute osteoporotic compression fracture, L1, with intractable pain, unstable. ANESTHESIA: Sedation with local. OPERATION PERFORMED: Kyphoplasty fracture stabilization of L1. DESCRIPTION OF PROCEDURE: The patient was taken to the operative room in supine position, was placed under a light sedation, and transferred to the operating table in a prone position. Once the patient was positioned on the operating table, the operation then proceeded with identification of the compression fracture level at L1. Using fluoroscopy, the skin was marked, and the operation proceeded with prepping and draping the lumbar spine by standard technique. After prepping and draping, the area over the pedicles on the right and left side was then infiltrated with 1% lidocaine and epinephrine down to the bone structure anesthetizing the whole area for approach into the posterior aspect of the vertebra. Once the local was in place, and the patient was comfortable, the operation then proceeded with instrumentation being carried through the pedicle and guidance with fluoroscopy. The patient had severe osteoporosis. The bone structure was hard to actually view the normal anatomy and by feel and palpation of the pedicle, and entry into the pedicle, the instrumentation was then carried into the posterior aspect of the vertebral body. At that point, biopsies were attempted, but the patient had a clear fluid in the central portion over the body of the vertebra along with hematoma formation. No bone was obtained. Essentially, there was a hollow-type sphere in the area. Approach on both the right and left side was similar. Balloon inflation was then carried out and then the operation proceeded with placement of 3 mL of cement on both the right and left side. Of note, the cement did, on the right side, extravasate posteriorly through probably a fracture crack, hanging just on the posterior aspect of the vertebral body, and just below the osteophyte lip that was present. Once the cement had hardened, the operation proceeded with irrigation of wound area, and closure of the skin with 3-0 Prolene. Standard dressings were applied. Of note, the patient did develop atrial fibrillation and heart changes at the beginning of the procedure, which Anesthesia stabilized. The plan will be for the patient postoperatively to be re-evaluated medically. Otherwise, the patient was stable and returned to the recovery room. She tolerated this whole procedure well with good pain reduction. ESTIMATED BLOOD LOSS: MMODAL /[id number]
[2016-08-11 13:57] VITALS: BP 163/69
--- NOTE | 2016-08-11 16:51 | PCM48HPAN ---
Post Anesthesia Note - EVALUATION WITHIN 48HRS OF ANESTHETIC Vital Signs in Normal Range: Yes Patient Participated in Evaluation: Yes Respiratory Function Stable: Yes Airway Patent: Yes Cardiovascular Function Stable: Yes (amiodarone gtt, ICU admission ) Hydration Status Stable: Yes Pain Control Satisfactory: Yes Nausea and Vomiting Control Satisfactory: Yes Mental Status Recovered: Yes - COMMENTS/OBSERVATIONS Free Text/Narrative:: Patient went back into a atrial fibrillation in phase 2 recovery. Transfered to ER where she was cardioverted x5 with no success. Then started on an amiodarone gtt. Pt now in SR in the 60's in ICU 23. VSS. Pt was asymptomatic throughout all of her events today and tolerated all the procedure well. Jhony Vargas, SPECIALTY TRIMMER
== END 2016-08-11 13:00 | disposition other institution (70) ==
LOC: JD.SDS 06:56 → MERGE 06:56 → JD.SDS 13:00
PROVIDERS: ATTEND Specialist
DX: M80.88XA Other osteoporosis with current pathological fracture, vertebra(e), initial encounter for fracture (principal); I48.91 Unspecified atrial fibrillation; R00.0 Tachycardia, unspecified; F17.210 Nicotine dependence, cigarettes, uncomplicated; Z98.890 Other specified postprocedural states; Z79.899 Other long term (current) drug therapy
CPT/HCPCS: 22514; 93005; C1713; J2250; J3010; J3370; Q9967; 01936; J2704

== ENCOUNTER 2016-08-11 13:07 | Inpatient (IN) | payer MEDICARE, MEDICAID ==
--- NOTE | 2016-08-11 13:16 | EDM.PDOC ---
ED HPI GENERAL MEDICAL PROBLEM - General Chief Complaint: Cardiovascular Problem Stated Complaint: BROUGHT FROM DAY SURGERY Time Seen by Provider: 08/11/16 13:16 - History of Present Illness INITIAL COMMENTS - FREE TEXT/NARRATIVE: 75-year-old female brought to emergency room from surgery with atrial fibrillation with rapid ventricular response. Patient was in surgery today for a kyphoplasty at which point she developed a tachyarrhythmia thought to be acute fibrillation with RVR. She received esmolol 10 mg 4 doses. This did get her through surgery without difficulty. The patient presents to the emergency room without chest pain breathing difficulties or shortness of breath she is a little slow in answering questions and has a hard time, but her words she did have a stroke a couple years ago and family says this is probably normal for her. The patient was discharged from the hospital today prior to going to surgery and during this time had no evidence of a tachyarrhythmia or atrial fibrillation. So this is believed to be new onset. - Related Data Allergies Allergy/AdvReac Type Severity Reaction Status Date / Time No Known Allergies Allergy Verified 08/11/16 13:16 Home Meds: Home Meds Simvastatin [Zocor] 20 mg PO BEDTIME 07/22/16 [History] Cyclobenzaprine [Flexeril] 5 mg PO TID PRN 08/07/16 [History] Acetaminophen/HYDROcodone [[place] 325-5 MG] 1 tab PO Q6H PRN #10 tablet 08/10/16 [Rx] Aspirin 81 mg PO DAILY #30 tab.chew 08/10/16 [Rx] Docusate Sodium/Sennosides [Senna Plus] 1 tab PO BID #60 tablet 08/10/16 [Rx] Magnesium Oxide 400 mg PO DAILY #30 tablet 08/10/16 [Rx] Nicotine [Habitrol] 14 mg TRDERM DAILY #30 patch 08/10/16 [Rx] Pentoxifylline [TRENtal] 400 mg PO TIDMEALS tab.er 08/10/16 [Rx] Polyethylene Glycol 3350 [MiraLAX] 17 gm PO DAILY packet 08/10/16 [Rx] Potassium Chloride [Klor-Con M20] 20 meq PO TID #90 tab.er 08/10/16 [Rx] Past Medical History HEENT History: Reports: Impaired Vision Other HEENT History: wears glasses Cardiovascular History: Reports: High Cholesterol, Hypertension, PVD Respiratory History: Reports: COPD Gastrointestinal History: Reports: Chronic Constipation, Other (See Below) Other Gastrointestinal History: current abdominal hernia SUPPORT ANALYST History: Reports: Musculoskeletal History: Reports: Osteoarthritis, Osteoporosis, RA Neurological History: Reports: Other (See Below) Other Neuro History: stroke - Past Surgical History Cardiovascular Surgical History: Reports: Vascular Surgery Other GI Surgeries/Procedures: hernia repair Musculoskeletal Surgical History: Reports: Hip Replacement Social & Family History - Family History Family Medical History: Noncontributory - Tobacco Use Smoking Status *Q: Never Smoker Years of Tobacco use: 40 Packs/Tins Daily: 1 Used Tobacco, but Quit: No Second Hand Smoke Exposure: No - Caffeine Use Caffeine Use: Reports: Coffee - Alcohol Use Days Per Week of Alcohol Use: 7 (beer) Number of Drinks Per Day: 5 Total Drinks Per Week: 35 - Recreational Drug Use Recreational Drug Use: No - Living Situation & Occupation Living situation: Reports: Single, with Family Occupation: Retired ED ROS GENERAL - Review of Systems Review Of Systems: See Below Constitutional: Denies: Fever, Chills HEENT: Reports: No Symptoms Respiratory: Reports: No Symptoms Cardiovascular: Reports: Palpitations. Denies: Chest Pain, Claudication, Syncope GI/Abdominal: Reports: No Symptoms, Constipation (She had problems with this at the time of her last admission) : Reports: No Symptoms Skin: Denies: No Symptoms Neurological: Denies: Confusion, Dizziness, Headache, Numbness Psychiatric: Reports: No Symptoms ED EXAM, GENERAL - Physical Exam Exam: See Below Exam Limited By: No Limitations General Appearance: Alert, No Apparent Distress Ears: Normal External Exam, Normal Canal, Hearing Grossly Normal, Normal TMs Head: Atraumatic, Normocephalic Neck: Normal Inspection, Supple, Non-Tender, Full Range of Motion Respiratory/Chest: No Respiratory Distress, Lungs Clear, Normal Breath Sounds Cardiovascular: No Edema (And she has SCDs on), Tachycardia GI/Abdominal: Normal Bowel Sounds, Soft, Non-Tender Extremities: Other (SCDs on pulses palpable minimal if any edema) Neurological: Alert, Oriented, Other (She's had a stroke in the past and is believed to be acting normal per family) Psychiatric: Normal Affect, Normal Mood Skin Exam: Warm, Dry, Intact ED CARDIOLOGY PROCEDURES - Cardioversion Indication: Atrial Fibrillation With RVR, SVT, Wide Complex Tachycardia NOS Patient Counseled: Yes Informed Consent Obtained: Yes Preparation: IV Access, Airway Management Equipment, Supplemental Oxygen, RT in Room, Monitor, Reversal Agents Available, Other (Anesthesia took care of this) Cardioversion Energy: 100J Sync, 200J Sync, Other (150 J of synchronized cardioversion) Mode: Biphasic Successful: No (Had some improvement) Post Cardioversion EKG Reviewed: Yes Course - Vital Signs Last Recorded V/S: Last Vital Signs Temp 36.4 C 08/11/16 13:12 Pulse 137 H 08/11/16 13:12 Resp 22 H 08/11/16 13:12 BP 161/69 H 08/11/16 13:12 Pulse Ox 91 L 08/11/16 13:12 - Orders/Labs/Meds Labs: Laboratory Tests 08/11/16 08/11/16 08/11/16 Range/Units 12:58 12:58 12:58 WBC 12.44 H (3.98-10.04) K/mm3 RBC 4.34 (3.98-5.22) M/mm3 Hgb 13.3 (11.2-15.7) gm/L Hct 41.1 (34.1-44.9) % MCV 94.7 (79.4-94.8) fl MCH 30.6 (25.6-32.2) pg MCHC 32.4 (32.2-35.5) g/dl RDW Std Deviation 44.3 (36.4-46.3) fL Plt Count 227 (182-369) K/mm3 MPV 10.2 (9.4-12.3) fl Neutrophils % (Manual) 72 H (40-60) % Band Neutrophils % 2 (0-10) % Lymphocytes % (Manual) 16 L (20-40) % Atypical Lymphs % 0 % Monocytes % (Manual) 8 (2-10) % Eosinophils % (Manual) 1 (0.7-5.8) % Basophils % (Manual) 1 (0.1-1.2) Platelet Estimate Adequate RBC Morph Comment Normal PT 10.9 (8.0-13.0) SECONDS INR 1.00 APTT 32 (22-36) SECONDS Sodium 142 (136-145) mEq/L Potassium 3.6 (3.5-5.1) mEq/L Chloride 106 (98-107) mEq/L Carbon Dioxide 23 (21-32) mEq/L Anion Gap 16.6 H (5-15) BUN 6 L (7-18) mg/dL Creatinine 0.8 (0.55-1.02) mg/dL Est Cr Clr Drug Dosing 52.99 mL/min Estimated GFR (MDRD) > 60 (>60) mL/min BUN/Creatinine Ratio 7.5 L (14-18) Glucose 86 (83-115) mg/dL Calcium 8.1 L (8.5-10.1) mg/dL Magnesium 1.6 L (1.8-2.4) mg/dl Total Bilirubin 0.6 (0.2-1.0) mg/dL AST 26 (15-37) U/L ALT 22 (14-59) U/L Alkaline Phosphatase 92 (46-116) U/L Troponin I 0.021 (0.00-0.056) ng/mL Total Protein 7.1 (6.4-8.2) g/dl Albumin 2.5 L (3.4-5.0) g/dl Globulin 4.6 gm/dL Albumin/Globulin Ratio 0.5 L (1-2) Meds: Medications Discontinued Medications Generic Name Dose Route Start Last Admin Trade Name Freq PRN Reason Stop Dose Admin Amiodarone HCl Confirm 08/11/16 14:48 Cordarone Administered 08/11/16 14:49 Dose 150 mg .ROUTE .STK-MED ONE Esmolol HCl Confirm 08/11/16 15:25 Esmolol Administered 08/11/16 15:26 Dose 100 mg .ROUTE .STK-MED ONE Amiodarone HCl/Dextrose Confirm 08/11/16 14:48 Nexterone In Dextrose 150 Mg/100 Ml Administered 08/11/16 14:49 Dose 100 mls @ as directed IV .STK-MED ONE Amiodarone HCl/Dextrose Confirm 08/11/16 14:59 Nexterone In Dextrose 360 Mg/200 Ml Administered 08/11/16 15:00 Dose 360 mg in 200 mls @ as directed .ROUTE .STK-MED ONE Magnesium Sulfate Confirm 08/11/16 15:03 Magnesium Sulfate 2 Gm In Water 50 Ml Administered 08/11/16 15:04 Dose 50 mls @ as directed .ROUTE .STK-MED ONE Labetalol HCl Confirm 08/11/16 13:55 Normodyne Administered 08/11/16 13:56 Dose 100 mg .ROUTE .STK-MED ONE Metoprolol Tartrate Confirm 08/11/16 14:20 Lopressor Administered 08/11/16 14:21 Dose 10 mg .ROUTE .STK-MED ONE Phenylephrine HCl Confirm 08/11/16 14:54 Bib-Synephrine Administered 08/11/16 14:55 Dose 10 mg .ROUTE .STK-MED ONE Propofol Confirm 08/11/16 14:17 Diprivan 20 Ml Administered 08/11/16 14:18 Dose 200 mg .ROUTE .STK-MED ONE - Re-Assessments/Exams Free Text/Narrative Re-Assessment/Exam: 08/11/16 15:56 Patient presented to the emergency room after been treated in the OR with a kyphoplasty for a vertebral fracture. While in the OR she developed what looked like atrial fibrillation with a rapid ventricular response she received a total of 40 mg of esmolol in 10 mg doses her rate did normalize to the procedure however after the procedure her rate sped up again and delivery she was in atrial fib she was brought into the emergency room where she was asymptomatic however had a profound SVT going often times the rates were in the 150s to 190s at times it looked like she was having runs of V. tach. And at times it looks like she was in profound atrial fibrillation with rapid ventricular response and at times she was in a sinus tachycardia rate 100-150 it was quite variable and difficult to predict. Case was discussed with Dr. Chauhan bulk plant operator stationary engineer supervisor at [facility] in [place] who agreed that electrical cardioversion would probably be the next best step. And then recommended Metroprolol of 50 mg twice a day afterwards. Anesthesia was called for sedation while waiting to get this done we did try a little bit of IV metoprolol this may slow the rate a little bit but the rhythm was still variable. The patient was attempted with cardioversion biphasic initially with 100 J with no improvement we increased this to 150 J and this helped a little bit but she still had this nonpredictable variable rhythm however we were not seeing the V. tach. Cardioversion was attempted they can at 200 J x2 with no improvement other than what we've been seeing. Case again discussed with Dr. Chauhan patient will be started on amiodarone and admitted here. Labs did show a low magnesium she was given 2 g of IV magnesium. Case discussed with Dr. Tate, who accepts the patient. Dr. Chauhan also did recommend anticoagulation perhaps with Eliquis, this was discussed with Dr. Tate. at this point the patient and magnesium and is on the amiodarone drip. Case was also discussed with Dr. Herrera who has no problems with us anticoagulating the patient. CODE STATUS discussed with the family and patient. They want everything reasonable done however if her heart is to stop or she stops breathing she does not want to be resuscitated. Departure - Departure Time of Disposition: 15:51 Disposition: Admitted As Inpatient 64 Clinical Impression: Tachyarrhythmia, Ventricular tachycardia, Atrial fibrillation with rapid ventricular response, Supraventricular tachycardia
[2016-08-11] MEDS ORDERED: Labetalol 100 MG/20 ML MDV ONE (13:55)
[2016-08-11] MEDS ORDERED: Propofol 200 MG/20 ML SDV ONE (14:17)
[2016-08-11] MEDS ORDERED: Metoprolol Tartrate 5 MG/5 ML SDV IVPUSH ONE (14:20)
[2016-08-11] MEDS ORDERED: Metoprolol Tartrate 5 MG/5 ML SDV ONE (14:20)
[2016-08-11] MEDS ORDERED: Amiodarone 150 MG/3 ML SDV ONE (14:48)
[2016-08-11] MEDS ORDERED: Phenylephrine 1% 10 MG/ML SDV ONE (14:54)
--- NOTE | 2016-08-11 14:56 | CR ---
Chest: Frontal view of the chest was obtained. Comparison: No previous chest x-ray. Heart size at the upper limits of normal. Tortuous thoracic aorta is seen. Diffuse increased lung markings are identified. Without old films uncertain if this is chronic or represents an acute pulmonary process. Previous vertebroplasty is seen. Scoliosis is noted within the spine. Bony structures are osteopenic. Impression: 1. Diffuse increased lung markings throughout both sides of the chest. Findings are most likely chronic but old chest x-ray would be needed to confirm. 2. Other incidental findings. Diagnostic code #3
[2016-08-11] MEDS ORDERED: Amiodarone In Dextrose,Iso-Osm 150 MG in Premix Bag 1 BAG IV ONE ×2 (14:57)
[2016-08-11] MEDS ORDERED: Magnesium Sulfate/Water 50 ML ONE (15:03)
[2016-08-11] MEDS ORDERED: Magnesium Sulfate/Water 2 GM in Premix Bag 1 BAG IV ONE ×2 (15:05→16:15)
[2016-08-11] MEDS ORDERED: Esmolol 100 MG/10 ML SDV ONE (15:25)
--- NOTE | 2016-08-11 15:25 | PCM48HPAN ---
Post Anesthesia Note - EVALUATION WITHIN 48HRS OF ANESTHETIC Vital Signs in Normal Range: Yes Patient Participated in Evaluation: Yes Respiratory Function Stable: Yes Airway Patent: Yes Cardiovascular Function Stable: Yes (Pt is in and out of afib but asymptomatic ) Hydration Status Stable: Yes Pain Control Satisfactory: Yes Nausea and Vomiting Control Satisfactory: Yes Mental Status Recovered: Yes
--- NOTE | 2016-08-11 15:52 | PCM.HP ---
H&P History of Present Illness - General Date of Service: 08/11/16 Admit Problem/Dx: Admission Diagnosis/Problem Admission Diagnosis/Problem Atrial fibrillation Source of Information: Patient, Family, Old Records, Provider, RN Notes Reviewed History Limitations: Reports: No Limitations, Physical Impairment - History of Present Illness Initial Comments - Free Text/Narative: This is a 75 yo elderly female with pst medical hx/o Impaired Vision, HTN, HLD, PVD, COPD, Chronic Abdominal Hernia, Chronic Constipation, OA , Osteoporosis, RA and Hx/o Stroke who was brought to ED for further evaluation of Tachy-Arrhythmia developed during outpatient spinal surgery. Patient was recently discharged from the floor to outpatient clinic for spinal kyphoplasty. Per secondary sources, patient developed what appears to be afib on monitor in the OR but initial EKG shows sinus tachycardia. At that time, she received a short course of esmolol but it did not last long before she went back to tachy- arrhythmia with heart rate as high at 160s. On presentation to ED, her repeat EKG confirms atrial fibrillation with RVR (HR in the 140s) associated with unsustained V-tach. Dr. Reich provide care for her initially with consultation from [facility] cardiology, Dr. Chauhan. An attempt to cardiovert her was done but w/o any success. Currently she is on Amiodarone maintaining a good heart rate. Patient will be on eliquis per operations research director recommendations for stroke prophylaxis. Her repeat EKG while in the unit shows sinus rhythm. Patient is being admitted for PAF with VTs. She is DNR/DNI. - Related Data Allergies/Adverse Reactions: Allergies Allergy/AdvReac Type Severity Reaction Status Date / Time No Known Allergies Allergy Verified 08/11/16 13:16 Home Medications: Home Meds Simvastatin [Zocor] 20 mg PO BEDTIME 07/22/16 [History] Cyclobenzaprine [Flexeril] 5 mg PO TID PRN 08/07/16 [History] Acetaminophen/HYDROcodone [[place] 325-5 MG] 1 tab PO Q6H PRN #10 tablet 08/10/16 [Rx] Aspirin 81 mg PO DAILY #30 tab.chew 08/10/16 [Rx] Docusate Sodium/Sennosides [Senna Plus] 1 tab PO BID #60 tablet 06/07/17 [Rx] Magnesium Oxide 400 mg PO DAILY #30 tablet 08/10/16 [Rx] Nicotine [Habitrol] 14 mg TRDERM DAILY #30 patch 08/10/16 [Rx] Pentoxifylline [TRENtal] 400 mg PO TIDMEALS tab.er 08/10/16 [Rx] Polyethylene Glycol 3350 [MiraLAX] 17 gm PO DAILY packet 08/10/16 [Rx] Potassium Chloride [Klor-Con M20] 20 meq PO TID #90 tab.er 08/10/16 [Rx] Past Medical History HEENT History: Reports: Impaired Vision Other HEENT History: wears glasses Cardiovascular History: Reports: High Cholesterol, Hypertension, PVD Respiratory History: Reports: COPD Gastrointestinal History: Reports: Chronic Constipation, Other (See Below) Other Gastrointestinal History: current abdominal hernia FORESTRY AIDE History: Reports: Musculoskeletal History: Reports: Osteoarthritis, Osteoporosis, RA Neurological History: Reports: Other (See Below) Other Neuro History: stroke - Past Surgical History Cardiovascular Surgical History: Reports: Vascular Surgery Other GI Surgeries/Procedures: hernia repair Musculoskeletal Surgical History: Reports: Hip Replacement Social & Family History - Family History Family Medical History: Noncontributory - Tobacco Use Smoking Status *Q: Never Smoker Years of Tobacco use: 40 Packs/Tins Daily: 1 Used Tobacco, but Quit: No Second Hand Smoke Exposure: No - Caffeine Use Caffeine Use: Reports: Coffee - Alcohol Use Days Per Week of Alcohol Use: 7 (beer) Number of Drinks Per Day: 5 Total Drinks Per Week: 35 - Recreational Drug Use Recreational Drug Use: No - Living Situation & Occupation Living situation: Reports: Single, with Family Occupation: Retired H&P Review of Systems - Review of Systems: Review Of Systems: See Below Exam - Exam Exam: See Below - Vital Signs Vital Signs: Last Vital Signs Temp 36.4 C 08/11/16 13:12 Pulse 137 H 08/11/16 13:12 Resp 22 H 08/11/16 13:12 BP 161/69 H 08/11/16 13:12 Pulse Ox 91 L 08/11/16 13:12 Weight: 59.874 kg - Patient Data Result Diagrams: 08/11/16 12:58 08/11/16 12:58 EKG INTERPRETATION EKG Date: 08/11/16 Time: 16:24 Rhythm: other (Sinus Rhythm) Rate (beats/min): 68 Comparison: change from previous EKG *Q Meaningful Use (ADM) - VTE *Q VTE Criteria *Q: - Stroke *Q Stroke Criteria *Q: - AMI *Q AMI Criteria *Q: Problem List Initiated/Reviewed/Updated: Yes Assessment/Plan Comment:: Assessment/Plan: Acute: PAF with Tachy-Arrhythmia (SVTs and Unsustained VTs) - Failed electrical cardioversion in ED - Unresponsive to BB on initial treatment - Currently on Amiodarone drip per protocol - Oral Amiodarone in am once drip is off - Metoprolol Tartrate 25 mg po BID first dose tonight - [id number] Score is 6 (15.2 % Yearly Risk of Stroke) w/o Anticoagulation - No recent or hx/o GI, Neurological, Spinal or Any kind of Major Bleed - HAS BLED Score: 4 points. Patient is at high risk for major bleeding Hx/o Compression Fracture - S/p Kyphoplasty - PRN Pain Medications - PT/OT consult for mobility Hypomagnesemia - Mg 1.6 - May have possibly induced VT - Received 2 grams of Mag Sulfate in ED - Pharmacy to replete and monitor Chronic: HTN HLD PVD COPD Abdominal Hernia Constipation OA/RA Osteoporosis Hx/o Stroke Plan: Admit to ICU Resume Home Meds Fall Precautions Routine AM Labs PT/OT consult SW/CM for d/c planning Code status: DNR/DNI
[2016-08-11] MEDS ORDERED: Metoprolol Tartrate 5 MG/5 ML SDV IVPUSH PRN (15:53)
[2016-08-11] MEDS ORDERED: hydrALAZINE 20 MG/ML SDV IVPUSH PRN (15:53)
[2016-08-11] MEDS ORDERED: HYDROmorphone 0.5 MG/0.5 ML Syringe IVPUSH PRN (15:54)
[2016-08-11] MEDS ORDERED: Promethazine 12.5 MG in Sodium Chloride 0.9% 50 ML IV PRN (15:54)
[2016-08-11] MEDS ORDERED: Polyethylene Glycol 3350 Powder 17 GM Packet PO PRN (15:54)
[2016-08-11] MEDS ORDERED: Ondansetron 4 MG/2 ML SDV IV PRN (15:54)
[2016-08-11] MEDS ORDERED: Bisacodyl 5 MG Tab PO PRN (15:54)
[2016-08-11] MEDS ORDERED: Temazepam 15 MG Cap PO PRN (15:54)
[2016-08-11] MEDS ORDERED: LORazepam 2 MG/ML MDV IV PRN (15:54)
[2016-08-11] MEDS ORDERED: Acetaminophen 325 MG Tab PO PRN (15:54)
[2016-08-11] MEDS ORDERED: Cyclobenzaprine 10 MG Tab PO PRN (19:06)
[2016-08-11] MEDS ORDERED: Acetaminophen/HYDROcodone 325-5 MG Tab PO PRN (19:06)
[2016-08-11] MEDS: Acetaminophen/HYDROcodone 325-5 MG Tab PO PRN (20:48)
[2016-08-11] MEDS: Metoprolol Tartrate 25 MG Tab PO SCH (20:49)
[2016-08-11] MEDS: Apixaban 5 MG Tab PO SCH (20:49)
[2016-08-11] MEDS: Potassium Chloride 20 MEQ Tab.ER PO SCH (20:49)
[2016-08-11] MEDS: Simvastatin 20 MG Tab PO SCH (20:50)
[2016-08-12] MEDS: Acetaminophen/HYDROcodone 325-5 MG Tab PO PRN ×3 (03:46→15:27)
--- NOTE | 2016-08-12 07:06 | PCM.PN ---
- General Info Date of Service: 08/12/16 Admission Dx/Problem (Free Text): Admission Diagnosis/Problem Admission Diagnosis/Problem Atrial fibrillation Subjective Update: Follow Up Functional Status: Reports: pain controlled, tolerating diet, urinating. Denies : new symptoms - Review of Systems General: Denies: Fever, Weakness, Fatigue, Malaise, Chills HEENT: Reports: no symptoms Pulmonary: Denies: shortness of breath Cardiovascular: Denies: Chest Pain Gastrointestinal: Denies: Abdominal pain, Nausea, Vomiting Genitourinary: Reports: no symptoms Musculoskeletal: Reports: no symptoms. Denies: back pain Skin: Reports: no symptoms Neurological: Reports: No Symptoms Psychiatric: Denies: depression, anxiety, agitation Systems Review Comment:: No overnight or acute issues. She remains in sinus rhythm. Her pain is controlled. She has no new complaints. - Patient Data Vitals - most recent: Last Vital Signs Temp 36.6 C 08/12/16 04:00 Pulse 61 08/12/16 06:00 Resp 19 08/12/16 05:00 BP 120/53 L 08/12/16 06:00 Pulse Ox 97 08/12/16 05:00 Weight - most recent: 63.14 kg I&O - last 24 hours: Intake & Output 08/11/16 08/12/16 08/12/16 22:59 06:59 14:59 Intake Total 345 150 Balance 345 150 Lab Results last 24 hrs: Laboratory Results - last 24 hr 08/12/16 Range/Units 05:50 WBC 11.35 H (3.98-10.04) K/mm3 RBC 4.20 (3.98-5.22) M/mm3 Hgb 12.8 (11.2-15.7) gm/L Hct 40.1 (34.1-44.9) % MCV 95.5 H (79.4-94.8) fl MCH 30.5 (25.6-32.2) pg MCHC 31.9 L (32.2-35.5) g/dl RDW Std Deviation 45.1 (36.4-46.3) fL Plt Count 226 (182-369) K/mm3 MPV 10.7 (9.4-12.3) fl Neut % (Auto) 73.3 H (34.0-71.1) % Lymph % (Auto) 15.4 L (19.3-51.7) % [place] % (Auto) 7.8 (4.7-12.5) % Eos % (Auto) 2.5 (0.7-5.8) Baso % (Auto) 0.4 (0.1-1.2) % Neut # (Auto) 8.32 H (1.56-6.13) K/mm3 Lymph # (Auto) 1.75 (1.18-3.74) K/mm3 [place] # (Auto) 0.88 H (0.24-0.36) K/mm3 Eos # (Auto) 0.28 (0.04-0.36) K/mm3 Baso # (Auto) 0.05 (0.01-0.08) K/mm3 Med Orders - Current: Current Medications Acetaminophen (Tylenol) 650 mg PO Q4H PRN PRN Reason: Pain (Mild 1-3)/fever Hydrocodone Bitart/Acetaminophen ([place] 325-5 Mg) 1 tab PO Q4H PRN PRN Reason: Pain (moderate 4-6) Last Admin: 08/12/16 03:46 Dose: 1 tab Amiodarone HCl (Cordarone) 200 mg PO DAILY@1400 [facility] Apixaban (Eliquis) 5 mg PO BID [facility] Last Admin: 08/11/16 20:49 Dose: 5 mg Aspirin (Aspirin) 81 mg PO DAILY [facility] Bisacodyl (Dulcolax) 5 mg PO DAILY PRN PRN Reason: Constipation Cyclobenzaprine HCl (Flexeril) 5 mg PO TID PRN PRN Reason: Muscle Spasm Hydralazine HCl (Apresoline) 20 mg IVPUSH Q4H PRN PRN Reason: Hypertension Hydromorphone HCl (Dilaudid) 0.25 mg IVPUSH Q2H PRN PRN Reason: Pain (severe 7-10) Promethazine HCl 12.5 mg/ (Sodium Chloride) 50.5 mls @ 100 mls/hr IV Q6H PRN PRN Reason: Nausea/Vomiting Amiodarone HCl/Dextrose (Nexterone In Dextrose 360 Mg/200 Ml) 360 mg in 200 mls @ 33.333 mls/hr IV ASDIRECTED [facility] PRN Reason: Protocol Last Infusion: 08/11/16 21:10 Dose: Infused Lorazepam (Ativan) 0.5 mg IV Q6H PRN PRN Reason: Anxiety Magnesium Oxide (Magnesium Oxide) 400 mg PO DAILY [facility] Magnesium Sulfate (Pharmacy To Dose - Magnesium Replacement) 1 dose .XX ASDIRECTED [facility] Metoprolol Tartrate (Lopressor) 5 mg IVPUSH Q4H PRN PRN Reason: Tachycardia Last Admin: 08/11/16 19:15 Dose: 5 mg Metoprolol Tartrate (Lopressor) 25 mg PO Q12HR [facility] Last Admin: 08/11/16 20:49 Dose: 25 mg Miscellaneous Information (Remove Patch) 1 ea TRDERM DAILY [facility] Nicotine (Habitrol) 14 mg TRDERM DAILY [facility] Ondansetron HCl (Zofran) 4 mg IV Q6H PRN PRN Reason: Nausea/Vomiting Pentoxifylline (Trental) 400 mg PO TIDMEALS [facility] Polyethylene Glycol (Miralax) 17 gm PO DAILY PRN PRN Reason: Constipation Polyethylene Glycol (Miralax) 17 gm PO DAILY [facility] Potassium Chloride (Pharmacy To Dose - Potassium Replacement) 1 dose .XX ASDIRECTED [facility] Potassium Chloride (Klor-Con M20) 20 meq PO TID [facility] Last Admin: 08/11/16 20:49 Dose: 20 meq Senna/Docusate Sodium (Senna Plus) 1 tab PO BID PRN PRN Reason: Constipation Senna/Docusate Sodium (Senna Plus) 1 tab PO BID [facility] Last Admin: 08/11/16 20:49 Dose: 1 tab Simvastatin (Zocor) 20 mg PO BEDTIME [facility] Last Admin: 08/11/16 20:50 Dose: 20 mg Temazepam (Restoril) 15 mg PO BEDTIME PRN PRN Reason: Sleep Discontinued Medications Hydrocodone Bitart/Acetaminophen ([place] 325-5 Mg) 1 tab PO Q6H PRN PRN Reason: back pain Amiodarone HCl (Cordarone) Confirm Administered Dose 150 mg .ROUTE .STK-MED ONE Stop: 08/11/16 14:49 Last Admin: 08/11/16 18:29 Dose: Not Given Amiodarone HCl (Cordarone) 200 mg PO DAILY [facility] Esmolol HCl (Esmolol) Confirm Administered Dose 100 mg .ROUTE .STK-MED ONE Stop: 08/11/16 15:26 Amiodarone HCl/Dextrose (Nexterone In Dextrose 150 Mg/100 Ml) Confirm Administered Dose 100 mls @ as directed IV .STK-MED ONE Stop: 08/11/16 14:49 Last Admin: 08/11/16 18:25 Dose: Not Given Amiodarone HCl/Dextrose (Nexterone In Dextrose 360 Mg/200 Ml) Confirm Administered Dose 360 mg in 200 mls @ as directed .ROUTE .STK-MED ONE Stop: 08/11/16 15:00 Last Admin: 08/11/16 18:25 Dose: Not Given Magnesium Sulfate (Magnesium Sulfate 2 Gm In Water 50 Ml) Confirm Administered Dose 50 mls @ as directed .ROUTE .STK-MED ONE Stop: 08/11/16 15:04 Last Admin: 08/11/16 18:26 Dose: Not Given Magnesium Sulfate 2 gm/ Premix 50 mls @ 50 mls/hr IV ONETIME ONE Stop: 08/11/16 17:14 Last Admin: 08/11/16 18:46 Dose: Not Given Amiodarone HCl/Dextrose 150 mg (/ Premix) 100 mls @ 400 mls/hr IV NOW ONE PRN Reason: Protocol Stop: 08/11/16 15:11 Last Admin: 08/11/16 14:57 Dose: 400 mls/hr Magnesium Sulfate 2 gm/ Premix 50 mls @ 25 mls/hr IV ONETIME ONE Stop: 08/11/16 17:04 Last Admin: 08/11/16 15:05 Dose: 25 mls/hr Labetalol HCl (Normodyne) Confirm Administered Dose 100 mg .ROUTE .ST-MED ONE Stop: 08/11/16 13:56 Last Admin: 08/11/16 18:24 Dose: Not Given Metoprolol Tartrate (Lopressor) Confirm Administered Dose 10 mg .ROUTE .STK-MED ONE Stop: 08/11/16 14:21 Last Admin: 08/11/16 18:28 Dose: Not Given Metoprolol Tartrate (Lopressor) 5 mg IVPUSH ONETIME ONE Stop: 08/11/16 14:21 Last Admin: 08/11/16 14:20 Dose: 5 mg Phenylephrine HCl (Bib-Synephrine) Confirm Administered Dose 10 mg .ROUTE .STK- MED ONE Stop: 08/11/16 14:55 Propofol (Diprivan 20 Ml) Confirm Administered Dose 200 mg .ROUTE .STK-MED ONE Stop: 08/11/16 14:18 - Exam General: alert, oriented, cooperative, no acute distress, mild distress HEENT: Pupils equal, Pupils reactive, EOMI, Mucous membr. moist/pink Neck: supple, trachea midline, no JVD, no thyromegaly Lungs: Clear to auscultation, Normal respiratory effort, Decreased breath sounds Cardiovascular: Regular Rate, Regular Rhythm Abdomen: bowel sounds present, soft, no tenderness, no distension (Female) Exam: Deferred Back Exam: Normal Inspection, Decreased Range of Motion Extremities: no edema, normal pulses, no tenderness/swelling, no clubbing, no cyanosis, no calf tenderness Skin: warm, dry, intact Neurological: no new focal deficit Psy/Mental Status: alert, normal affect, normal mood - Problem List Review Problem List Initiated/Reviewed/Updated: Yes - My Orders Last 24 Hours: My Active Orders 08/11/16 15:53 Metoprolol Tartrate [Lopressor] 5 mg IVPUSH Q4H PRN hydrALAZINE [Apresoline] 20 mg IVPUSH Q4H PRN 08/11/16 15:54 Cardiac Monitoring [RC] CONTINUOUS Height and Weight [RC] 0400 Intake and Output [RC] 04,16 Oxygen Therapy [RC] PRN Up With Assistance [RC] ASDIRECTED Up ad [place] [RC] ASDIRECTED VTE/DVT Education [RC] 10,22 Vital Signs [RC] Q1H Acetaminophen [Tylenol] 650 mg PO Q4H PRN Acetaminophen/HYDROcodone [[place] 325-5 MG] 1 tab PO Q4H PRN Bisacodyl [Dulcolax] 5 mg PO DAILY PRN Docusate Sodium/Sennosides [Senna Plus] 1 tab PO BID PRN HYDROmorphone [Dilaudid] 0.25 mg IVPUSH Q2H PRN LORazepam [Ativan] 0.5 mg IV Q6H PRN Ondansetron [Zofran] 4 mg IV Q6H PRN Polyethylene Glycol 3350 [MiraLAX] 17 gm PO DAILY PRN Promethazine [Phenergan] 12.5 mg Sodium Chloride 0.9% [Normal Saline] 50 ml IV Q6H Temazepam [Restoril] 15 mg PO BEDTIME PRN 08/11/16 15:55 Consult to Case Management [CONS] Routine Consult to Director Of Convention Services [CONS] Routine Consult to Spiritual Care [CONS] Routine OT Evaluation and Treatment [CONS] Routine PT Evaluation and Treatment [CONS] Routine 08/11/16 16:00 Magnesium Rep Pharmacy to Dose [Pharmacy to Dose - Magnesium Replacement] 1 dose .XX ASDIRECTED Potassium Rep Pharmacy to Dose [Pharmacy to Dose - Potassium Replacement] 1 dose .XX ASDIRECTED 08/11/16 19:06 Cyclobenzaprine [Flexeril] 5 mg PO TID PRN 08/11/16 19:11 Code Status [Resuscitation Status] Routine 08/11/16 21:00 Apixaban [Eliquis] 5 mg PO BID Docusate Sodium/Sennosides [Senna Plus] 1 tab PO BID Metoprolol Tartrate [Lopressor] 25 mg PO Q12HR Potassium Chloride [Klor-Con M20] 20 meq PO TID Simvastatin [Zocor] 20 mg PO BEDTIME 08/11/16 Dinner Regular Diet [DIET] 08/12/16 05:50 BASIC METABOLIC PANEL,BMP [CHEM] AM MAGNESIUM [CHEM] AM T4 FREE [CHEM] AM 08/12/16 07:00 EKG Documentation Completion [RC] AM Pentoxifylline [TRENtal] 400 mg PO TIDMEALS 08/12/16 09:00 Aspirin 81 mg PO DAILY Magnesium Oxide 400 mg PO DAILY Nicotine [Habitrol] 14 mg TRDERM DAILY Polyethylene Glycol 3350 [MiraLAX] 17 gm PO DAILY Remove Patch 1 ea TRDERM DAILY 08/12/16 14:00 Amiodarone [Cordarone] 200 mg PO DAILY@1400 08/12/16 21:00 Simvastatin [Zocor] 20 mg PO BEDTIME 08/13/16 05:11 BASIC METABOLIC PANEL,BMP [CHEM] AM CBC WITH AUTO DIFF [HEME] AM MAGNESIUM [CHEM] AM - Plan Plan:: Assessment/Plan: Acute: PAF with Tachy-Arrhythmia (SVTs and Unsustained VTs), Now in sinus rhythm - Failed electrical cardioversion in ED - Unresponsive to BB on initial treatment - Currently on Amiodarone drip per protocol - Oral Amiodarone in am once drip is off - Metoprolol Tartrate 25 mg po BID first dose tonight - [id number] Score is 6 (15.2 % Yearly Risk of Stroke) w/o Anticoagulation - No recent or hx/o GI, Neurological, Spinal or Any kind of Major Bleed - HAS BLED Score: 4 points. Patient is at high risk for major bleeding Hx/o Compression Fracture - S/p Kyphoplasty - PRN Pain Medications - PT/OT consult for mobility Resolved: S/p Hypomagnesemia - Mg 1.6 - May have possibly induced VT - Received 2 grams of Mag Sulfate in ED - Pharmacy to replete and monitor Chronic: HTN HLD PVD COPD Abdominal Hernia Constipation OA/RA Osteoporosis Hx/o Stroke Plan: She is clinically stable Transfer to Med-Surg with Tele once off amiodarone drip Fall Precautions Routine AM Labs Continue PT/OT SW/CM for d/c planning Code status: DNR/DNI Possible d/c in 1-2 days
[2016-08-12] MEDS: Nicotine 14 MG/24 Hr Patch TRDERM SCH (08:25)
[2016-08-12] MEDS: Polyethylene Glycol 3350 Powder 17 GM Packet PO SCH (08:25)
[2016-08-12] MEDS: Magnesium Oxide 400 MG Tab PO SCH (08:26)
[2016-08-12] MEDS: Potassium Chloride 20 MEQ Tab.ER PO SCH ×3 (08:26→20:35)
[2016-08-12] MEDS: Metoprolol Tartrate 25 MG Tab PO SCH ×2 (08:26→20:33)
[2016-08-12] MEDS: Apixaban 5 MG Tab PO SCH ×2 (08:27→20:35)
[2016-08-12] MEDS: Aspirin 81 MG Tab.Chew PO SCH (08:27)
[2016-08-12] MEDS: Pentoxifylline 400 MG Tab.ER PO SCH ×3 (08:27→18:14)
[2016-08-12] MEDS: Remove Patch **NICOTINE TRDERM SCH (08:28)
[2016-08-12] MEDS ORDERED: Amiodarone 200 MG Tab PO SCH ×2 (09:00→14:00)
--- NOTE | 2016-08-12 11:15 | PCM48HPAN ---
Post Anesthesia Note - EVALUATION WITHIN 48HRS OF ANESTHETIC Vital Signs in Normal Range: Yes Patient Participated in Evaluation: Yes Respiratory Function Stable: Yes Airway Patent: Yes Cardiovascular Function Stable: Yes (Still in sinus rhythm, converted from IV amiodarone to PO) Hydration Status Stable: Yes Pain Control Satisfactory: Yes Nausea and Vomiting Control Satisfactory: Yes Mental Status Recovered: Yes - COMMENTS/OBSERVATIONS Free Text/Narrative:: Nurse stated patient was up walking in the halls earlier today
[2016-08-12] MEDS ORDERED: Simvastatin 20 MG Tab PO SCH (21:00)
[2016-08-12] MEDS: Simvastatin 20 MG Tab PO SCH (21:53)
[2016-08-13] MEDS: Potassium Chloride 20 MEQ Tab.ER PO SCH (08:01)
[2016-08-13] MEDS: Nicotine 14 MG/24 Hr Patch TRDERM SCH (08:01)
[2016-08-13] MEDS: Metoprolol Tartrate 25 MG Tab PO SCH (08:02)
[2016-08-13] MEDS: Aspirin 81 MG Tab.Chew PO SCH (08:02)
[2016-08-13] MEDS: Magnesium Oxide 400 MG Tab PO SCH (08:02)
[2016-08-13] MEDS: Pentoxifylline 400 MG Tab.ER PO SCH (08:02)
[2016-08-13] MEDS: Apixaban 5 MG Tab PO SCH (08:02)
[2016-08-13] MEDS: Remove Patch **NICOTINE TRDERM SCH (08:08)
[2016-08-13] MEDS: Polyethylene Glycol 3350 Powder 17 GM Packet PO SCH (08:08)
--- NOTE | 2016-08-13 10:17 | PCM.DCSUM1 ---
Discharge Summary - Hospital Course Brief History: This is a 75 yo elderly female with past medical hx/o Impaired Vision, HTN, HLD, PVD, COPD, Chronic Abdominal Hernia, Chronic Constipation, OA, Osteoporosis, RA and Hx/o Stroke who was brought to ED for further evaluation of Tachy-Arrhythmia developed during outpatient spinal surgery and was found in A-fib with RVR and NSVT. - Discharge Data Discharge Date: 08/13/16 Discharge Disposition: Home, Self-Care 01 Condition: Good - Discharge Diagnosis/Problem(s) (1) Status post kyphoplasty SNOMED Code(s): 953720429 ICD Code: Z98.890 - OTHER SPECIFIED POSTPROCEDURAL STATES Status: Acute (2) Atrial fibrillation with rapid ventricular response SNOMED Code(s): 564863616551652 Status: Resolved (3) Supraventricular tachycardia SNOMED Code(s): 2607229 Status: Resolved (4) Tachyarrhythmia SNOMED Code(s): 6066428 Status: Resolved (5) Ventricular tachycardia SNOMED Code(s): 98791501, 30453029 Status: Resolved - Patient Summary/Data Operative Procedure(s) Performed: None Complications: None Consults: Consultations 08/11/16 15:55 Consult to Case Management [CONS] Routine Consult to Supervisor [employer] [CONS] Routine Consult to Spiritual Care [CONS] Routine OT Evaluation and Treatment [CONS] Routine PT Evaluation and Treatment [CONS] Routine Hospital Course: She was primarily admitted for medical management of new onset of atrial fibrillation with RVR while she was undergoing outpatient kyphoplasty. She received initial treatment with low dose intravenous esmolol however she did not respond to it. EKGs obtain along with intra-operative monitor revealed patient was in and out with A-fib associated with SVTs and un-sustained Ventricular Tachycardia. From the OR, the patient was then taken to the emergency department for the evaluation. The patient received beta waqas to control her rate however she did not respond to it as well. ED provider, attempted to cardioverted her but without any success. A tele-consult was made to Dr. Chauhan, on-call applied psychology chair from [facility] for further input. He recommended patient be put on amiodarone and to start her on eliquis for stroke prophylaxis. The patient responded to the amiodarone drip and immediately she was taken to the unit for further medical treatment. In the unit, she continued to respond to amiodarone treatment along with BB. Once she was off amiodarone drip, she was then down graded to Med-Surg status. Patient was in sinus rhythm on the day of her discharge. Her hospital course was fairly uncomplicated. The rest of her chronic medical illness remained stable during this admission. Her back pain was mostly controlled. Dr. Herrera visited her and he gave additional instructions for wound care and for home discharge orders. The patient is now stable for discharge. She was advised to take all medications as directed. Her home maintenance medications were trimmed down on the day of discharge. Patient was advised to follow-up with Dr. Herrera as well as her primary care as scheduled. She was further advised to come back or seek immediate care should her symptom persists or gets worse. The patient expressed understanding and in agreement with the plans as discussed above. On they day of discharge, I spent over 45 minutes with her son who was present at bedside discussing all his concerns or queries. All his questions were answered. - Patient Instructions Diet: Usual Diet as Tolerated Activity: As Tolerated Driving: May Drive Today Showering/Bathing: May Shower Notify Provider of: Fever, Increased Pain, Swelling and Redness, Nausea and/or Vomiting Other/Special Instructions: - Please take all medications as directed. - Follow routine wound care per Dr. Herrera's instruction. - Follow up with your doctor in 1-2 weeks. - Call your doctor for any questions or concerns - Discharge Plan Prescriptions/Med Rec: Metoprolol Tartrate [Lopressor] 25 mg PO Q12HR #60 tablet Amiodarone [Cordarone] 200 mg PO DAILY@0900 #30 tablet Apixaban [Eliquis] 5 mg PO BID #60 tablet Home Medications: Home Meds Naproxen Sodium [Aleve] 220 mg PO BID PRN 08/22/14 [History] Simvastatin [Zocor] 20 mg PO BEDTIME 07/22/16 [History] Cyclobenzaprine [Flexeril] 5 mg PO TID PRN 08/07/16 [History] Acetaminophen/HYDROcodone [Erie 325-5 MG] 1 tab PO Q6H PRN #10 tablet 08/10/16 [Rx] Docusate Sodium/Sennosides [Senna Plus] 1 tab PO BID #60 tablet 08/10/16 [Rx] Nicotine [Habitrol] 14 mg TRDERM DAILY #30 patch 08/10/16 [Rx] Polyethylene Glycol 3350 [MiraLAX] 17 gm PO DAILY packet 08/10/16 [Rx] Amiodarone [Cordarone] 200 mg PO DAILY@0900 #30 tablet 08/13/16 [Rx] Apixaban [Eliquis] 5 mg PO BID #60 tablet 08/13/16 [Rx] Magnesium Oxide 400 mg PO DAILY #15 tablet 08/13/16 [Rx] Metoprolol Tartrate [Lopressor] 25 mg PO Q12HR #60 tablet 08/13/16 [Rx] Patient Handouts: Smoking Cessation, Tips for Success, [id number], Paroxysmal Supraventricular Tachycardia, [id number], Apixaban oral tablets, Atrial Fibrillation, [id number] Referrals: PCP,Not In Area [Primary Care Provider] - - Discharge Summary/Plan Comment DC Time >30 min.: Yes (45 mins) Discharge Summary/Plan Comment: Discharge to Home - General Info Date of Service: 08/13/16 Admission Dx/Problem (Free Text: Admission Diagnosis/Problem Admission Diagnosis/Problem Atrial fibrillation Subjective Update: Follow Up Functional Status: Reports: pain controlled, tolerating diet, ambulating, urinating. Denies: new symptoms - Review of Systems General: Denies: Fever, Weakness, Fatigue, Malaise, Chills HEENT: Reports: no symptoms Pulmonary: Denies: shortness of breath Cardiovascular: Denies: Chest Pain Gastrointestinal: Denies: Abdominal pain, Nausea, Vomiting Genitourinary: Reports: no symptoms Musculoskeletal: Reports: no symptoms, back pain Skin: Reports: no symptoms Neurological: Reports: Gait Disturbance. Denies: Confusion Psychiatric: Denies: depression, anxiety, agitation Systems Review Comment: No overnight or acute issues. She is doing relatively well. She remains in sinus rhythm. She has no new complaints. - Patient Data Vitals - Most Recent: Last Vital Signs Temp 36.6 C 08/13/16 04:00 Pulse 73 08/13/16 08:02 Resp 23 H 08/13/16 04:00 BP 126/58 L 08/13/16 08:02 Pulse Ox 96 08/13/16 04:00 Weight - Most Recent: 65.3 kg I&O - Last 24 hours: Intake & Output 08/12/16 08/13/16 08/13/16 22:59 06:59 14:59 Intake Total 1060 700 Output Total 300 Balance 1060 400 Lab Results - Last 24 hrs: Laboratory Results - last 24 hr 08/13/16 08/13/16 Range/Units 05:35 05:35 WBC 11.36 H (3.98-10.04) K/mm3 RBC 4.44 (3.98-5.22) M/mm3 Hgb 13.4 (11.2-15.7) gm/L Hct 42.3 (34.1-44.9) % MCV 95.3 H (79.4-94.8) fl MCH 30.2 (25.6-32.2) pg MCHC 31.7 L (32.2-35.5) g/dl RDW Std Deviation 45.2 (36.4-46.3) fL Plt Count 253 (182-369) K/mm3 MPV 10.6 (9.4-12.3) fl Neut % (Auto) 76.8 H (34.0-71.1) % Lymph % (Auto) 11.7 L (19.3-51.7) % [place] % (Auto) 8.5 (4.7-12.5) % Eos % (Auto) 2.0 (0.7-5.8) Baso % (Auto) 0.4 (0.1-1.2) % Neut # (Auto) 8.71 H (1.56-6.13) K/mm3 Lymph # (Auto) 1.33 (1.18-3.74) K/mm3 [place] # (Auto) 0.97 H (0.24-0.36) K/mm3 Eos # (Auto) 0.23 (0.04-0.36) K/mm3 Baso # (Auto) 0.05 (0.01-0.08) K/mm3 Sodium 139 (136-145) mEq/L Potassium 4.9 (3.5-5.1) mEq/L Chloride 106 (98-107) mEq/L Carbon Dioxide 25 (21-32) mEq/L Anion Gap 12.9 (5-15) BUN 10 (7-18) mg/dL Creatinine 0.8 (0.55-1.02) mg/dL Est Cr Clr Drug Dosing TNP Estimated GFR (MDRD) > 60 (>60) mL/min BUN/Creatinine Ratio 12.5 L (14-18) Glucose 115 (83-115) mg/dL Calcium 8.5 (8.5-10.1) mg/dL Magnesium 1.8 (1.8-2.4) mg/dl Med Orders - Current: Current Medications Acetaminophen (Tylenol) 650 mg PO Q4H PRN PRN Reason: Pain (Mild 1-3)/fever Hydrocodone Bitart/Acetaminophen (Erie 325-5 Mg) 1 tab PO Q4H PRN PRN Reason: Pain (moderate 4-6) Last Admin: 08/12/16 15:27 Dose: 1 tab Amiodarone HCl (Cordarone) 200 mg PO DAILY@1400 [facility] Last Admin: 08/12/16 14:03 Dose: 200 mg Apixaban (Eliquis) 5 mg PO BID [facility] Last Admin: 08/13/16 08:02 Dose: 5 mg Aspirin (Aspirin) 81 mg PO DAILY [facility] Last Admin: 08/13/16 08:02 Dose: 81 mg Bisacodyl (Dulcolax) 5 mg PO DAILY PRN PRN Reason: Constipation Cyclobenzaprine HCl (Flexeril) 5 mg PO TID PRN PRN Reason: Muscle Spasm Hydralazine HCl (Apresoline) 20 mg IVPUSH Q4H PRN PRN Reason: Hypertension Hydromorphone HCl (Dilaudid) 0.25 mg IVPUSH Q2H PRN PRN Reason: Pain (severe 7-10) Promethazine HCl 12.5 mg/ (Sodium Chloride) 50.5 mls @ 100 mls/hr IV Q6H PRN PRN Reason: Nausea/Vomiting Amiodarone HCl/Dextrose (Nexterone In Dextrose 360 Mg/200 Ml) 360 mg in 200 mls @ 33.333 mls/hr IV ASDIRECTED [facility] PRN Reason: Protocol Last Admin: 08/12/16 09:11 Dose: 16.7 mls/hr Lorazepam (Ativan) 0.5 mg IV Q6H PRN PRN Reason: Anxiety Magnesium Oxide (Magnesium Oxide) 400 mg PO DAILY [facility] Last Admin: 08/13/16 08:02 Dose: 400 mg Magnesium Sulfate (Pharmacy To Dose - Magnesium Replacement) 1 dose .XX ASDIRECTED [facility] Metoprolol Tartrate (Lopressor) 5 mg IVPUSH Q4H PRN PRN Reason: Tachycardia Last Admin: 08/11/16 19:15 Dose: 5 mg Metoprolol Tartrate (Lopressor) 25 mg PO Q12HR [facility] Last Admin: 08/13/16 08:02 Dose: 25 mg Miscellaneous Information (Remove Patch) 0 ea TRDERM DAILY [facility] Last Admin: 08/13/16 08:08 Dose: 1 ea Nicotine (Habitrol) 14 mg TRDERM DAILY [facility] Last Admin: 08/13/16 08:01 Dose: 14 mg Ondansetron HCl (Zofran) 4 mg IV Q6H PRN PRN Reason: Nausea/Vomiting Last Admin: 08/12/16 17:17 Dose: 4 mg Pentoxifylline (Trental) 400 mg PO TIDMEALS [facility] Last Admin: 08/13/16 08:02 Dose: 400 mg Polyethylene Glycol (Miralax) 17 gm PO DAILY PRN PRN Reason: Constipation Polyethylene Glycol (Miralax) 17 gm PO DAILY [facility] Last Admin: 08/13/16 08:08 Dose: 17 gm Potassium Chloride (Pharmacy To Dose - Potassium Replacement) 1 dose .XX ASDIRECTED [facility] Potassium Chloride (Klor-Con M20) 20 meq PO TID [facility] Last Admin: 08/13/16 08:01 Dose: 20 meq Senna/Docusate Sodium (Senna Plus) 1 tab PO BID PRN PRN Reason: Constipation Senna/Docusate Sodium (Senna Plus) 1 tab PO BID [facility] Last Admin: 08/13/16 08:02 Dose: 1 tab Simvastatin (Zocor) 20 mg PO BEDTIME [facility] Last Admin: 08/12/16 21:53 Dose: Not Given Simvastatin (Zocor) 20 mg PO BEDTIME [facility] Last Admin: 08/12/16 20:35 Dose: 20 mg Temazepam (Restoril) 15 mg PO BEDTIME PRN PRN Reason: Sleep Discontinued Medications Hydrocodone Bitart/Acetaminophen (Erie 325-5 Mg) 1 tab PO Q6H PRN PRN Reason: back pain Amiodarone HCl (Cordarone) Confirm Administered Dose 150 mg .ROUTE .STK-MED ONE Stop: 08/11/16 14:49 Last Admin: 08/11/16 18:29 Dose: Not Given Amiodarone HCl (Cordarone) 200 mg PO DAILY [facility] Esmolol HCl (Esmolol) Confirm Administered Dose 100 mg .ROUTE .STK-MED ONE Stop: 08/11/16 15:26 Amiodarone HCl/Dextrose (Nexterone In Dextrose 150 Mg/100 Ml) Confirm Administered Dose 100 mls @ as directed IV .STK-MED ONE Stop: 08/11/16 14:49 Last Admin: 08/11/16 18:25 Dose: Not Given Amiodarone HCl/Dextrose (Nexterone In Dextrose 360 Mg/200 Ml) Confirm Administered Dose 360 mg in 200 mls @ as directed .ROUTE .STK-MED ONE Stop: 08/11/16 15:00 Last Admin: 08/11/16 18:25 Dose: Not Given Magnesium Sulfate (Magnesium Sulfate 2 Gm In Water 50 Ml) Confirm Administered Dose 50 mls @ as directed .ROUTE .STK-MED ONE Stop: 08/11/16 15:04 Last Admin: 08/11/16 18:26 Dose: Not Given Magnesium Sulfate 2 gm/ Premix 50 mls @ 50 mls/hr IV ONETIME ONE Stop: 08/11/16 17:14 Last Admin: 08/11/16 18:46 Dose: Not Given Amiodarone HCl/Dextrose 150 mg (/ Premix) 100 mls @ 400 mls/hr IV NOW ONE PRN Reason: Protocol Stop: 08/11/16 15:11 Last Admin: 08/11/16 14:57 Dose: 400 mls/hr Magnesium Sulfate 2 gm/ Premix 50 mls @ 25 mls/hr IV ONETIME ONE Stop: 08/11/16 17:04 Last Admin: 08/11/16 15:05 Dose: 25 mls/hr Labetalol HCl (Normodyne) Confirm Administered Dose 100 mg .ROUTE .STK-MED ONE Stop: 08/11/16 13:56 Last Admin: 08/11/16 18:24 Dose: Not Given Metoprolol Tartrate (Lopressor) Confirm Administered Dose 10 mg .ROUTE .STK-MED ONE Stop: 08/11/16 14:21 Last Admin: 08/11/16 18:28 Dose: Not Given Metoprolol Tartrate (Lopressor) 5 mg IVPUSH ONETIME ONE Stop: 08/11/16 14:21 Last Admin: 08/11/16 14:20 Dose: 5 mg Phenylephrine HCl (Bib-Synephrine) Confirm Administered Dose 10 mg .ROUTE .STK- MED ONE Stop: 08/11/16 14:55 Propofol (Diprivan 20 Ml) Confirm Administered Dose 200 mg .ROUTE .STK-MED ONE Stop: 08/11/16 14:18 - Exam General: Reports: alert, oriented, cooperative, no acute distress HEENT: Reports: Pupils equal, Pupils reactive, EOMI, Mucous membr. moist/pink Neck: Reports: supple, trachea midline Lungs: Reports: Clear to auscultation, Normal respiratory effort Cardiovascular: Reports: Regular Rate, Regular Rhythm Abdomen: Reports: bowel sounds present, soft, no tenderness, no distension (Female) Exam: Deferred Rectal (Female) Exam: Deferred Back Exam: Reports: Normal Inspection, Decreased Range of Motion Extremities: Reports: no edema, normal pulses, no tenderness/swelling, no clubbing, no cyanosis, no calf tenderness Skin: Reports: warm, dry, intact Wound/Incisions: Reports: healing well Neurological: Reports: no new focal deficit Psy/Mental Status: Reports: alert, normal affect, normal mood *Q Meaningful Use (DIS) - VTE *Q VTE Criteria *Q: - Stroke *Q Stroke Criteria *Q: - AMI *Q AMI Criteria *Q:
[2016-08-13 10:57] VITALS: BP 126/58
== END 2016-08-13 11:40 | disposition home or self-care (01) | DRG 309 ==
LOC: JD.ED 13:07 → MERGE 15:43 → JD.ICU 15:43
PROVIDERS: ADMIT Internal Medicine; ATTEND Internal Medicine
DX: I48.91 Unspecified atrial fibrillation (principal); M80.88XA Other osteoporosis with current pathological fracture, vertebra(e), initial encounter for fracture; Z98.890 Other specified postprocedural states; Z79.82 Long term (current) use of aspirin; E78.00 Pure hypercholesterolemia, unspecified; I10 Essential (primary) hypertension; J44.9 Chronic obstructive pulmonary disease, unspecified; I73.9 Peripheral vascular disease, unspecified; M19.90 Unspecified osteoarthritis, unspecified site; R00.0 Tachycardia, unspecified; E83.42 Hypomagnesemia; Z86.73 Personal history of transient ischemic attack (TIA), and cerebral infarction without residual deficits; Z66 Do not resuscitate; F17.210 Nicotine dependence, cigarettes, uncomplicated; Z79.899 Other long term (current) drug therapy
CPT/HCPCS: 22514; 36415; 71010; 80053; 83735; 84439; 84443; 84484; 85025; 85610; 85730; 92960; 93005 ×3; 96365; 96368; 96375; 99285; C1713; J0282 ×2; J2250; J2370; J3010; J3370; Q9967; 00410; 01936; 80048; 97116-GP; 97162-GP; 97166-GO; 99232; 99239; 99284-25; A9270-GY; J2405; J2704; J3475; J3490